=== PATIENT | female | born 1940 | race Caucasian/White ===

== ENCOUNTER 2016-09-08 12:28 | Inpatient (IN) ==
--- NOTE | 2016-09-08 12:54 | EKG Report ---
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
--- NOTE | 2016-09-08 13:10 | Emergency Department Note ---
Arrival - Arrival Chief Complaint: Dizziness Stated Complaint: chest pain,falling ED Nursing Triage Note: C/o dizziness-onset upon waking this morning. Patient reports falling x's 2 this morning. C/o pain in lower back and right shoulder. Mode of Arrival: Wheelchair Limitations: No Limitations Source: Patient Time Seen by Provider: 09/08/16 13:04 - History of Present Illness HPI Narrative: This 75-year-old white female presents with a history of lying on her sofa and feeling dizzy about 2 hours ago. When the dizziness did not howie, the patient got up and walked around and then sat in an arm chair where she promptly became extremely dizzy and fell out of the chair hitting her right shoulder and the right side of her head on the wooden floor. She denies loss of consciousness, nausea, vomiting, visual changes, slurred speech, chest pain, shortness of breath, or focal deficits associated with this incident. Currently she states she feels back to normal except for a sore right shoulder. Of note the patient does have a history of chronic alcoholism without chronic liver disease but has not had a drink an almost 10 years by her admonition. Family members tend to agree with this, but they also state that although she is alert and oriented 3 currently, several times this past year she has gotten lost trying to drive home. She is in no acute distress. Onset (ago): hour(s) Consistency: now resolved Date of Last Menstrual Period: hysterectomy Allergies/Adverse Reactions: Allergies Allergy/AdvReac Type Severity Reaction Status Date / Time Sulfa (Sulfonamide Allergy RASH Verified 09/08/16 12:41 Antibiotics) Home Medications: Home Medications Medication Instructions Recorded Confirmed Type Acetaminophen Tab [Tylenol Tab] 500 mg PO BID 09/08/16 09/08/16 History Aspirin 325 mg PO DAILY 09/08/16 09/08/16 History Atorvastatin [Lipitor] 20 mg PO DAILY 09/08/16 09/08/16 History Carvedilol [Coreg] 25 mg PO DAILY 09/08/16 09/08/16 History Fosinopril [Monopril] 10 mg PO DAILY 09/08/16 09/08/16 History Lansoprazole [Prevacid] 30 mg PO DAILY 09/08/16 09/08/16 History Review of System - Review of System 12 point system: reviewed and no additional remarkable complaints except as stated - Review of System Constitutional: Present: as per HPI Respiratory: Present: as per HPI Cardiovascular: Present: as per HPI Gastrointestinal: Present: as per HPI Musculoskeletal: Present: as per HPI Neurological: Present: as per HPI Psychiatric: Present: as per HPI Medical,Surgical,& Family Hx - Medical History Cardio: History of: CAD, Hypertension, [place] Endocrine: History of: Dyslipidemia - Surgical History Reproductive Surgeries: Surgical HX of;: Hysterectomy - Social History Smoking Status: Current every day smoker Frequency of Alcohol Use: None Type of Drug Use: None Exam Physical Examination: GENERAL: Well developed, well nourished elderly white female in no acute distress. HEENT: Normocephalic. No trauma. Moist mucous membranes. EOMI. PERRLA. No nystagmus ENT NML NECK: Supple. No adenopathy. CARDIAC: Regular. No murmurs. Heart rate 70 CHEST: Clear to auscultation. No respiratory distress. O2 sat 97% ABDOMEN: Soft. Nontender. Positive fluid wave. Hypoactive bowel sounds. EXTREMITIES: No trauma. Pain on range of motion of the right shoulder but no ecchymosis or swelling noted. No pedal edema. SKIN: No diaphoresis. No rash. NEURO: Alert. Oriented 3. Motor, sensory, vibratory intact. No focal deficits. Vital Signs: Vital Signs Temperature 97.9 F 09/08/16 12:55 Pulse Rate 71 09/08/16 12:55 Respiratory Rate 20 09/08/16 12:55 Blood Pressure 168/98 09/08/16 12:55 O2 Sat by Pulse Oximetry 97 09/08/16 12:33 Course - Reevaluation(s) Reevaluation #1: Advised patient that because of urinary tract and cardiac issues she will need hospitalization for observation at least for serial enzymes. - Consultations Consultation #1: Discussed with hospitalist service who will admit for further evaluation and treatment. Results - Labs CBC & BMP: 09/08/16 13:06 09/08/16 13:06 Labs: I have reviewed the results and noted the dirty urine as well as the bump in troponins and greatly elevated BMP. - Impressions EKG: Sinus rhythm with left bundle branch block pattern diffuse ST changes consistent with block. No specific acute injury pattern discernible due to block. - Diagnostic Findings Procedure: Chest x-ray: image reviewed by me, report reviewed by me ( Cardiomegaly otherwise negative chest.), CT: image reviewed by me, report reviewed by me (Head: Cerebral atrophy with microvascular ischemia), X-ray: image reviewed by me, report reviewed by me (Right shoulder: No acute injury, mild DJD noted) Disposition Clinical Impression: Abnormal cardiac enzymes, Congestive heart failure, Cystitis Case discussed with: patient Disposition: Still a Patient Time of Disposition: 15:18
--- NOTE | 2016-09-08 13:32 | CT Report ---
Referring physician: Francisco Cortez Exam: CT brain without contrast Date: September 08, 2016 Comparison: None Reason: Dizziness The patient is an Emergency Department patient on September 08, 2016. Technique: Axial images of the head were obtained without the use of contrast. Total DLP was 1103.6 mGy*cm. Findings: There is mild to moderate generalized cerebral atrophy/volume loss and probable chronic microvascular ischemic change. A small remote infarction is suspected within the left cerebellum. The lateral ventricles are mildly prominent, likely secondary to central atrophy/volume loss. No midline shift is present. There is no evidence of intracranial hemorrhage, abnormal mass effect or an acute infarction. No acute osseous process is seen. There is prominent calcified plaque at the intracranial internal carotid arteries. The mastoid air cells and visualized paranasal sinuses are clear. Impression: 1. No acute intracranial process is identified. 2. Lpdd-[id number]-[id number] generalized cerebral atrophy/volume loss and probable chronic microvascular ischemic change. A small remote infarction is also suspected within the left cerebellum. The CT exam was performed using one or more of the following dose reduction techniques: Automated exposure control and adjustment of the mA and/or kV according to patient size. PROCEDURE INTERPRETED AT [facility] DEPARTMENT OF RADIOLOGY Final Report Signed by: Dr. Fransisco Nunez
[2016-09-08 13:47] LABS: Basophils # 0.1 10*3/uL (0.0-0.2); Basophils % 0.6 % (0.0-0.8); Eosinophils # 0.2 10*3/uL (0.0-0.87); Eosinophils % 1.9 % (0.00-10.9); Hematocrit 39.6 VOL% (35.7-47.0); Immature Granulocytes % 0.5 %; Immature Granulocytes Absolute 0.04 #; Lymphocytes # 1.9 10*3/uL (1.4-4.0); Lymphocytes % 22.6 % (21.3-54.2); Mean Corpuscular HGB Conc 32.8 GM/DL (32-36); Mean Corpuscular Hemoglobin 28 PG (27-34); Mean Corpuscular Volume 85.3 FL (87-102); Mean Platelet Volume 13.2 FL (9.6-12.0); Monocytes # 0.6 10*3/uL (0.11-0.8); Neutrophils # 5.7 10*3/uL (1.4-7.4); Neutrophils % 67.4 % (38.7-73.9); Platelet Count 192 T/CUMM (130-400); Red Blood Count 4.64 MC/CUMM (3.8-5.5); Red Cell Distribution Width 14.4 % (9.3-17.3); White Blood Count 8.5 T/CUMM (4-12)
[2016-09-08 13:55] LABS: INR 1.1; PT Patient Result 11.4 SECS
--- NOTE | 2016-09-08 13:59 | XRay Report ---
Referring Physician: Francisco Cortez Exam: XR chest 1V portable Date: September 08, 2016 at 1:24 PM Reason: Shortness of breath Comparison: Chest PA lateral July 16, 2009 Findings: The cardiac silhouette is again enlarged, and there is calcified plaque at the aortic arch. No focal consolidation, pneumothorax or pleural effusion is identified. No acute osseous process is seen. Impression: 1. Cardiomegaly. 2. No acute pulmonary process is identified. PROCEDURE INTERPRETED AT [facility] DEPARTMENT OF RADIOLOGY Final Report Signed by: Dr. Fransisco Nunez
--- NOTE | 2016-09-08 14:01 | XRay Report ---
Referring Physician: Francisco Cortez Exam: XR shoulder 2V RT Date: September 08, 2016 at 1:28 PM Reason: Status post fall, right shoulder pain, initial encounter Comparison: None Findings: There is mild degenerative change at the right acromioclavicular joint and lateral acromial downsloping. There is also minimal marginal spurring at the right humeral head. No acute fracture, dislocation or osseous destructive process is identified. Scattered arterial calcification is noted. Impression: Mild degenerative change at the right shoulder. No acute osseous process is identified. PROCEDURE INTERPRETED AT [facility] DEPARTMENT OF RADIOLOGY Final Report Signed by: Dr. Fransisco Nunez
[2016-09-08 14:10] LABS: Apearance,Urine CLEAR (Clear); Bacteria,Urine Occasional /HPF (Few); Bilirubin,Urine Negative (Negative); Blood, Urine Negative (Negative); Glucose,Urine (UA) Negative (Negative); Ketones,Urine Negative (Negative); Nitrite,Urine Negative (Negative); Protein,Urine Negative; RBC,Urine <1 /HPF (0-4); Squamous Epithelial Cell,Urine Occasional /HPF (0-10); Urine Color Yellow (Yellow); Urine Specific Gravity 1.005 (1.001-1.035); Urine Urobilinogen < 2.0 EU/DL (0.2-1.0); WBC,Urine 25 /HPF (0-6)
[2016-09-08 14:15] LABS: Alanine Aminotransferase 14 U/L (13-56); Albumin 3.8 G/DL (3.4-5.0); Alkaline Phosphatase 104 U/L (45-117); Aspartate Amino Transferase 21 U/L (0-37); Blood Urea Nitrogen 22 MG/DL (7-18); Calcium 9.8 MG/DL (8.5-10.1); Free T4 (Free Thyroxine) 1.41 NG/DL (0.76-1.46); Glucose 100 MG/DL (74-106); Osmolality,Calculated 277.7 MOS/KG (273-304); Potassium 4.8 MMOL/L (3.5-5.1); Sodium 138 MMOL/L (136-145); Total Protein 7.1 G/DL (6.4-8.3)
[2016-09-08 14:16] LABS: Troponin I Only 0.262 NG/ML (0.00-0.045)
[2016-09-08 14:29] LABS: Barbiturates Screen,Urine Negative (Negative); Benzodiazepines Screen,Urine Negative (Negative); Cannabinoid Screen,Urine Negative (Negative); Opiate Screen,Urine Negative (Negative); Phencyclidine Screen,Urine Negative (Negative)
[2016-09-08 14:35] LABS: Ammonia 18 UMOL/L (11-32)
[2016-09-08] MEDS ORDERED: ONDANSETRON 4 MG/2 ML VIAL IV PRN (16:34)
[2016-09-08] MEDS ORDERED: DOCUSATE SODIUM 100 MG CAPSULE PO PRN (16:34)
[2016-09-08] MEDS ORDERED: NICOTINE 21 MG/24 HR PATCH TRANSDERM PRN (16:34)
--- NOTE | 2016-09-08 16:42 | Hospitalist History & Physical ---
Assessment and Plan (1) Urinary tract infection Status: Acute Current Visit: Yes (2) Syncope Status: Acute Current Visit: Yes (3) Congestive heart failure Status: Acute Current Visit: Yes History of Present Illness Chief complaint: dizzy spell History of present illness: Ms. Baez is a 75 year old white female patient that presented to the ED today after a fall. The patient states that she was at home watching her dog play. She got up to move near the dog and while returning back to her seat, she lost balance and fell. She stated she hit her right shoulder and maybe head. She stated she felt dizzy while this was happening. She denied any prior history of this type of incident. She also denied loss of consciousness, vision changes, tinnuitis, chest pain, nausea or vomiting. Pt. has a history of chf, [place], hypertension, COPD, ulcers, and arthritis. Pt also admits to past alcohol abuse. Pt's family is at bedside and adds that over the last 2 months pt has experienced an increase in disorientation and confusion. Pt. agrees. Pt. had elevated BNP and elevated troponin. Pt. will be admitted to the hospitalist program. Home Medications Medication Instructions Recorded Confirmed Type Acetaminophen Tab [Tylenol Tab] 500 mg PO BID 09/08/16 09/08/16 History Aspirin 325 mg PO DAILY 09/08/16 09/08/16 History Atorvastatin [Lipitor] 20 mg PO DAILY 09/08/16 09/08/16 History Carvedilol [Coreg] 25 mg PO DAILY 09/08/16 09/08/16 History Fosinopril [Monopril] 10 mg PO DAILY 09/08/16 09/08/16 History Lansoprazole [Prevacid] 30 mg PO DAILY 09/08/16 09/08/16 History Allergies Allergy/AdvReac Type Severity Reaction Status Date / Time Sulfa (Sulfonamide Allergy RASH Verified 09/08/16 12:41 Antibiotics) Medical,Surgical,& Family Hx - Medical History Cardio: History of: CAD, Hypertension, [place] Endocrine: History of: Dyslipidemia - Surgical History Reproductive Surgeries: Surgical HX of;: Hysterectomy - Social History Smoking Status: Current every day smoker Have you smoked in the last 12 months: Yes Frequency of Alcohol Use: None Type of Drug Use: None Lives With:: Alone Functional capacity: independent ambulation - Constitutional Constitutional: Absent: fever(s), headache(s) - Cardiovascular Cardiovascular: Absent: chest pain at rest, edema - Respiratory Respiratory: Present: cough (nonproductive), dyspnea - Gastrointestinal Gastrointestinal: Absent: abdominal pain, nausea, vomiting - Genitourinary Genitourinary: Absent: difficulty urinating - Neurological Neurological: Present: confusion. Absent: headache(s), numbness Exam - Constitutional General appearance: normal weight, no acute distress - Head Head exam: Present: normal inspection, normocephalic - Eye Eye exam: Present: EOMI. Absent: scleral icterus Pupils: Present: KATHY - Neck Neck exam: Present: normal inspection - Respiratory Respiratory exam: Present: other (coarse) - Cardiovascular Cardiovascular exam: Present: regular rate and rhythm - GI/Abdominal GI/Abdominal exam: Present: normal bowel sounds, soft. Absent: tenderness - Extremities Exam Extremities exam: Present: normal inspection, normal capillary refill, full ROM - Back Exam Back exam: Present: normal inspection - Neurological Exam Neurological exam: Present: alert, oriented X3, normal gait - Psychiatric Psychiatric exam: Present: normal affect, normal mood - Skin Skin exam: Present: normal color, warm, dry Results - Labs CBC & BMP: 09/08/16 13:06 09/08/16 13:06 Lab Results: I have reviewed the past 24 hour labs
[2016-09-08] MEDS: PIPERACILLIN/TAZOBACTAM 3,375 MG in SODIUM CHLORIDE 0.9% 100 ML IV SCH (17:14)
[2016-09-08] MEDS: FUROSEMIDE 40 MG/4 ML VIAL IV SCH (17:15)
[2016-09-08] MEDS: ACETAMINOPHEN 325 MG TABLET PO PRN (21:30)
[2016-09-08 21:44] LABS: Troponin I Only 0.258 NG/ML (0.00-0.045)
[2016-09-09] MEDS ORDERED: NITROGLYCERIN SL 0.4 MG TABLET SL PRN (00:16)
[2016-09-09] MEDS ORDERED: NITROGLYCERIN SL 0.4 MG TABLET SL ONE (00:17)
[2016-09-09] MEDS ORDERED: ASPIRIN CHEW 81 MG TABLET PO ONE (00:24)
[2016-09-09] MEDS ORDERED: NITROGLYCERIN 2% OINT 1 INCH/GM PACK TOP ONE (00:25)
--- NOTE | 2016-09-09 00:32 | Event Note ---
Called by the staff nurse and patient is refusing the pain medications and Lasix. She has been complaining of chest soreness. I went to see the patient she says she has a soreness in chest when I asked in detail seems like more of a dull pain which is nonreproducible no associated with the movement or breathing. It is nonradiating. She has history of " mild OR in the past" she also has history of alcohol abuse in the past but has quit in 1999. She is scared of taking Paradox and that the reason she did not want to take that for pain. She denies any shortness of breath or orthopnea. On exam she has a regular rate and rhythm no normal heart sound lungs clear to auscultation without any rhonchi or crepitus. I gave her dose of sublingual nitroglycerin and her pain eased off. Noted she had two elevated troponin readings and grossly unchanged. I will ask for aspirin and Nitropaste. Give sublingual nitroglycerin as needed. I will start her on metoprolol 12.5 mg twice daily. Consult cardiology in a.m. unless pain worsens. Continue on telemetry monitoring. I will ask for repeat troponin level in the morning
--- NOTE | 2016-09-09 00:46 | EKG Report ---
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
[2016-09-09] MEDS: METOPROLOL TARTRATE 25 MG TABLET PO SCH ×3 (01:04→22:48)
[2016-09-09] MEDS: PIPERACILLIN/TAZOBACTAM 3,375 MG in SODIUM CHLORIDE 0.9% 100 ML IV SCH ×3 (01:27→16:40)
[2016-09-09 04:55] LABS: Basophils # 0.1 10*3/uL (0.0-0.2); Basophils % 0.7 % (0.0-0.8); Eosinophils # 0.2 10*3/uL (0.0-0.87); Eosinophils % 2.2 % (0.00-10.9); Hematocrit 35.6 VOL% (35.7-47.0); Hemoglobin 11.8 GM/DL (12.0-16.0); Immature Granulocytes % 0.4 %; Immature Granulocytes Absolute 0.04 #; Lymphocytes # 2.3 10*3/uL (1.4-4.0); Mean Corpuscular HGB Conc 33.1 GM/DL (32-36); Mean Corpuscular Hemoglobin 28 PG (27-34); Mean Corpuscular Volume 84.6 FL (87-102); Mean Platelet Volume 11.7 FL (9.6-12.0); Monocytes # 0.9 10*3/uL (0.11-0.8); Monocytes % 9.3 % (1.7-12.7); Neutrophils % 63.4 % (38.7-73.9); Platelet Count 222 T/CUMM (130-400); Red Blood Count 4.21 MC/CUMM (3.8-5.5); Red Cell Distribution Width 14.2 % (9.3-17.3); White Blood Count 9.5 T/CUMM (4-12)
[2016-09-09 05:36] LABS: Troponin I Only 0.281 NG/ML (0.00-0.045)
[2016-09-09 05:38] LABS: Calcium 9.1 MG/DL (8.5-10.1); Magnesium 2.1 MG/DL (1.8-2.4); Osmolality,Calculated 281.5 MOS/KG (273-304); Potassium 4.2 MMOL/L (3.5-5.1); Risk Ratio 4.13; Thyroid Stimulating Hormone 1.51 uIU/ml (0.358-3.74); VLDL CHOLESTEROL 18.2 MG/DL
[2016-09-09] MEDS: ATORVASTATIN 20 MG TABLET PO SCH (09:29)
[2016-09-09] MEDS: ASPIRIN CHEW 81 MG TABLET PO SCH (09:29)
[2016-09-09] MEDS: PANTOPRAZOLE 40 MG TABLET PO SCH (09:29)
[2016-09-09] MEDS: FUROSEMIDE 40 MG/4 ML VIAL IV SCH ×2 (09:30→16:40)
--- NOTE | 2016-09-09 12:06 | ECHO Report ---
Xenia Baez Exam Date: 09/09/2016 09:31 Referring Physician: Technologist: Sheri Jackson Age: 75 Ht (in): 66 Wt (lb): 154 Gender: F Exam Location: [facility] Echo Indications: UTI, Syncope, CHF, SOB, Chest pain BP: 157 / 85 HR: 63 Rhythm: Sinus Technical Quality: Technically difficult study IMPRESSIONS Severely decreased left ventricular systolic function with left ventricular ejection fraction estimated at 20-25%. Moderate concentric left ventricular hypertrophy. Mildly thickened mitral valve leaflets with mild to moderate mitral valve regurgitation. Mild aortic valve sclerosis with mild aortic valve regurgitation. Mild tricuspid regurgitation. MEASUREMENTS (Male / Female) Normal Values 2D ECHO LV Diastolic Diameter PLAX 5.2 cm 4.2 - 5.9 / 3.9 - 5.3 cm LV Systolic Diameter PLAX 4.6 cm LV Fractional Shortening PLAX 10.8 % IVS Diastolic Thickness 2.3 cm 0.6 - 1.0 / 0.6 - 0.9 cm LVPW Diastolic Thickness 1.5 cm 0.6 - 1.0 / 0.6 - 0.9 cm Aortic Root Diameter 3.0 cm LA Systolic Diameter LX 4.8 cm 3.0 - 4.0 / 2.7 - 3.8 cm FINDINGS Left Ventricle Normal left ventricular cavity size. Moderate concentric left ventricular hypertrophy. Severely decreased left ventricular systolic function, left ventricular ejection fraction is estimated at 20-25%. Right Ventricle Normal right ventricular size. Right Atrium The right atrium is mildly enlarged. Left Atrium Moderately increased left atrial size. Mitral Valve Mildly thickened mitral valve leaflets with mild to moderate mitral valve regurgitation. Aortic Valve Mild aortic valve sclerosis with mild aortic valve regurgitation. Tricuspid Valve Morphologically normal tricuspid valve. Mild tricuspid regurgitation. Pulmonic Valve Pulmonic valve not well visualized. Pericardium No pericardial effusion. Aorta Normal size aortic root and proximal ascending aorta. Curt Perkins (Electronically Signed) Final Date: 09 September 2016 12:05
--- NOTE | 2016-09-09 12:25 | Ultrasound Report ---
Exam: Carotid ultrasound Date: 09/09/2016 Comparison: 10/24/2006 Technique: Duplex scans of the carotid and vertebral arteries using B-mode/Mederos scale imaging and Doppler spectral analysis and color flow. Reason: Syncope Findings: The right ICA measures 6.2 mm in diameter and the left ICA measures 6.0 mm in diameter. Color-flow documented in the visualized arteries. The peak systolic velocities are as follows: Right CCA: 56.0 cm/s Right ICA: 104.2 cm/s Right ECA: 164.8 cm/s Left CCA: 85.9 cm/s Left ICA: 116.2 cm/s Left ECA: 93.5 cm/s The peak systolic ICA/CCA velocity ratios are as follows: 1.5 on the right and 1.4 on the left. Antegrade flow is present in both vertebral arteries. Impression:[Less than 50% stenosis in both internal carotid arteries with diffuse heterogeneous plaque formation. Tortuosity of the arteries. Antegrade flow in both vertebral arteries.] The Society of Radiologists in Ultrasound consensus conference criteria was used. The Ultrasound images were captured and stored. PROCEDURE INTERPRETED AT [facility] DEPARTMENT OF RADIOLOGY Final Report Signed by: Dr. Jessica Mederos
--- NOTE | 2016-09-09 12:33 | Cardiology Consult Note ---
Assessment and Plan (1) Urinary tract infection Status: Acute Assessment and plan: Treatment has been initiated. I think that her falls were related to the UTI Current Visit: Yes (2) Non-ischemic cardiomyopathy Status: Acute Assessment and plan: She has a long-standing severe nonischemic cardiomyopathy dating back at least 10 years. Her left ventricular systolic function has really not changed significantly. However, The patient probably needs reassessment of her coronary anatomy. She is a smoker and has not had coronary angiogram in many years. I tried talking about that with her today but I'm not sure she is going to consent. We will discuss this further tomorrow. Current Visit: Yes (3) Left bundle branch block Status: Acute Assessment and plan: I think the patient would benefit from a biventricular internal cardiac defibrillator. She didn't seem excited about this discussion today. I'll try discussing it with her again tomorrow. She may still be a bit confused related to her urinary tract infection. Current Visit: Yes (4) Abnormal cardiac enzyme level Status: Acute Assessment and plan: The patient has a trivial rise in her cardiac enzymes which I suspect is related to her volume overload/heart failure. However, I do think it would be appropriate to reevaluate her coronary anatomy since it has been many years since this has been done, and she has risk factors. I'll discuss this more with her tomorrow. Current Visit: Yes (5) Acute on chronic systolic (congestive) heart failure Status: Acute Assessment and plan: I'm going to review and optimize her medical management. Current Visit: Yes (6) Syncope Status: Acute Assessment and plan: I am not sure if she had true syncope or just fell down from being weak from her urinary tract infection. But, certainly with her cardiomyopathy we have to be concerned about a cardiac source of her. We have her on a community living instructor. I would like to perform a cardiac catheterization the patient is willing. She also would probably benefit from a biventricular defibrillator at some point. However, I would want her to be completely cleared of the infection before implanting a device. Current Visit: Yes History of Present Illness - Consult Narrative History of present illness: Ms. Baez is a 75 year old female who has a long-standing history of a severe nonischemic cardiomyopathy. The patient was previously followed by Dr. Santa who is recently retired. She underwent cardiac catheterization many years ago with Dr. Rivas but this did not show any significant obstructive coronary disease. Essentially she has been managed conservatively and has done very well. The patient came in to the hospital after having 2 episodes of feeling weak and falling. She did not have any significant injury with the falls, but her workup in the hospital has revealed urinary tract infection. The patient had a significant elevation in her BNP and a slight abnormality in her cardiac troponin and cardiology was consulted to assist with workup and management. The patient denies any chest pain to me. She denies any palpitations or heart racing. She denies any orthopnea, PND, or peripheral edema. She seems remarkably asymptomatic from her severe cardiomyopathy. She denies any fever, chills, or nausea or vomiting. Her EKG shows normal sinus rhythm with a left bundle branch block which is chronic. Her other testing was generally benign except for the urinalysis and cardiac labs as outlined above. The patient reports being a heavy smoker, unfortunately. Current Medications Acetaminophen (Tylenol Tab) 650 mg PO Q4H PRN PRN Reason: Fever, Headache, Mild Pain Last Admin: 09/08/16 21:30 Dose: 650 mg Hydrocodone Bitart/Acetaminophen (Festus 5-325) 1 tablet PO Q4H PRN PRN Reason: Pain Mild (1-3) Last Admin: 09/09/16 10:40 Dose: 1 tablet Aspirin () 324 mg PO DAILY [facility] Last Admin: 09/09/16 09:29 Dose: 324 mg Atorvastatin Calcium (Lipitor) 20 mg PO DAILY [facility] Last Admin: 09/09/16 09:29 Dose: 20 mg Docusate Sodium (Colace Cap) 100 mg PO BID PRN PRN Reason: Constipation Furosemide (Lasix Inj) 40 mg IV BID [facility] Last Admin: 09/09/16 09:30 Dose: 40 mg Piperacillin Sod/Tazobactam (Sod 3,375 mg/ Sodium Chloride) 100 mls @ 25 mls/ hr IV Q8H [facility] Last Admin: 09/09/16 09:29 Dose: 25 mls/hr Metoprolol Tartrate (Lopressor Tab) 12.5 mg PO BID [facility] Last Admin: 09/09/16 09:30 Dose: 12.5 mg Nicotine (Nicoderm Cq 21) 1 patch TRANSDERM DAILY PRN PRN Reason: Nicotine Cravings Last Admin: 04/15/17 09:29 Dose: 1 patch Nitroglycerin (Nitrostat) 0.4 mg SL Q5M PRN PRN Reason: Chest Pain Last Admin: 09/09/16 00:19 Dose: 0.4 mg Ondansetron HCl (Zofran Inj) 4 mg IV Q4H PRN PRN Reason: Nausea Pantoprazole Sodium (Protonix Tab) 40 mg PO DAILY [facility] Last Admin: 09/09/16 09:29 Dose: 40 mg CC: Hazel Duncan MD - Home Medications and Allergies Home Medications: Home Medications Medication Instructions Recorded Confirmed Type Acetaminophen Tab [Tylenol Tab] 500 mg PO BID 09/08/16 09/08/16 History Aspirin 325 mg PO DAILY 09/08/16 09/08/16 History Atorvastatin [Lipitor] 20 mg PO DAILY 09/08/16 09/08/16 History Carvedilol [Coreg] 25 mg PO DAILY 09/08/16 09/08/16 History Fosinopril [Monopril] 10 mg PO DAILY 09/08/16 09/08/16 History Lansoprazole [Prevacid] 30 mg PO DAILY 09/08/16 09/08/16 History Allergies/Adverse Reactions: Allergies Allergy/AdvReac Type Severity Reaction Status Date / Time Sulfa (Sulfonamide Allergy RASH Verified 09/08/16 12:41 Antibiotics) 12 point system: reviewed and no additional remarkable complaints except as stated Medical,Surgical,& Family Hx - Medical History Cardio: History of: CAD, Hypertension, ID Psychological: History of: Anxiety Disorders Endocrine: History of: Dyslipidemia - Surgical History HEENT Surgeries: Surgical HX of: Tonsilectomy & Adenoidectomy Reproductive Surgeries: Surgical HX of;: Hysterectomy - Family History Family History: Reports;: Family Heart Disease, Family Hypertension - Social History Smoking Status: Current every day smoker Frequency of Alcohol Use: None Type of Drug Use: None Physical Examination Vital Signs Temp Pulse Resp BP Pulse Ox 97.9 F 71 20 168/98 97 09/08/16 12:33 09/08/16 12:33 09/08/16 12:33 09/08/16 12:33 09/08/16 12:33 Other: General: Frail, elderly, somewhat chronically ill-appearing HEENT: Normocephalic, atraumatic Neck: Supple Neck, Midline Trachea Cardiac: Regular Rhythm, 2/6 systolic Murmur, no gallop, no rub Lungs: Clear to Ascultation, No Wheeze, Rales, Rhonchi Neuro: Cranial Nerve 2-12 Intact, diffuse generalized weakness Abdomen: Soft, Active Bowel Sounds, No Masses, No Pulsations/Bruits, somewhat protuberant, ? mild ascites Skin: Normal color, no rash Extremities: No Clubbing, No Cyanosis, No Edema, Normal Upper Extr. Pulses Musculoskeletal: No acute abnormality noted, diffuse muscular wasting Psychiatric: The patient is alert and oriented. The patient has a flat affect but does not appear to be anxious or depressed. Result/EKG - Labs CBC & BMP: 09/09/16 04:35 09/09/16 04:35 Lab Results: I have reviewed the past 24 hour labs Labs: Laboratory Results - last 24 hr 09/08/16 09/09/16 09/09/16 20:44 04:35 04:35 WBC 9.5 RBC 4.21 Hgb 11.8 L Hct 35.6 L MCV 84.6 L MCH 28 MCHC 33.1 RDW 14.2 Plt Count 222 MPV 11.7 Neut % (Auto) 63.4 Lymph % (Auto) 24.0 [place] % (Auto) 9.3 Eos % (Auto) 2.2 Baso % (Auto) 0.7 Neut # (Auto) 6.0 Lymph # (Auto) 2.3 [place] # (Auto) 0.9 H Eos # (Auto) 0.2 Baso # (Auto) 0.1 Immature Gran % 0.4 Nucleated RBC % 0.0 Immature Gran # 0.04 Nucleated RBCs # 0.00 Sodium Potassium Chloride Carbon Dioxide Anion Gap BUN Creatinine GFR Calculation BUN/Creatinine Ratio Glucose Calculated Osmolality Calcium Magnesium Total Creatine Kinase 74 D 96 D CK-MB (CK-2) 2.8 3.1 Troponin I 0.258 H 0.281 H B-Natriuretic Peptide Triglycerides Cholesterol LDL Cholesterol VLDL Cholesterol HDL Cholesterol Heart Disease Risk Ratio TSH 3rd Generation 09/09/16 09/09/16 04:35 04:35 WBC RBC Hgb Hct MCV MCH MCHC RDW Plt Count MPV Neut % (Auto) Lymph % (Auto) [place] % (Auto) Eos % (Auto) Baso % (Auto) Neut # (Auto) Lymph # (Auto) [place] # (Auto) Eos # (Auto) Baso # (Auto) Immature Gran % Nucleated RBC % Immature Gran # Nucleated RBCs # Sodium 139 Potassium 4.2 Chloride 106 Carbon Dioxide 25 Anion Gap 12.2 BUN 30 H Creatinine 1.40 H GFR Calculation 38 BUN/Creatinine Ratio 21.00 H Glucose 89 Calculated Osmolality 281.5 Calcium 9.1 Magnesium 2.1 Total Creatine Kinase CK-MB (CK-2) Troponin I B-Natriuretic Peptide 4456 H Triglycerides 91 Cholesterol 186 LDL Cholesterol 128.0 VLDL Cholesterol 18.2 HDL Cholesterol 45 Heart Disease Risk Ratio 4.13 TSH 3rd Generation 1.510 - EKG EKG results: interpreted by me
--- NOTE | 2016-09-09 14:08 | Hospitalist Progress Note ---
Assessment and Plan - Time spent with patient Time spent with patient: Greater than 30 minutes (1) Syncope Status: Acute Assessment and plan: Continue workup. Current Visit: Yes (2) Abnormal cardiac enzyme level Status: Acute Assessment and plan: Defer to cardiology. Current Visit: Yes (3) Non-ischemic cardiomyopathy Status: Acute Assessment and plan: Defer to cardiology. Current Visit: Yes (4) Urinary tract infection Status: Acute Assessment and plan: Continue antibiotics. Current Visit: Yes (5) Acute on chronic systolic (congestive) heart failure Status: Acute Assessment and plan: Continue diuresis. Current Visit: Yes Hospitalist: Subjective Interval history: No complaints this morning. No overnight events. Exam - Constitutional Vitals: Period Temp Pulse Resp BP Sys/Reyes Pulse Ox Last 24 Hr 96.8 F-98.2 F 57-91 16-20 147-179/76-101 95-98 General appearance: no acute distress - Head Head exam: Present: normocephalic, atraumatic - Eye Eye exam: Present: EOMI Pupils: Present: KATHY - ENT ENT exam: Present: normal exam - Neck Neck exam: Present: normal inspection - Respiratory Respiratory exam: Present: clear to auscultation bilaterally. Absent: rhonchi, wheezes - Cardiovascular Cardiovascular exam: Present: regular rate and rhythm. Absent: gallop, rubs, systolic murmur - GI/Abdominal GI/Abdominal exam: Present: normal bowel sounds, soft. Absent: distended, firm , guarding, tenderness, rebound - Extremities Exam Extremities exam: Present: normal inspection. Absent: calf tenderness, edema Results - Labs CBC & BMP: 09/09/16 04:35 09/09/16 04:35 Lab Results: I have reviewed the past 24 hour labs
--- NOTE | 2016-09-09 14:27 | Event Note ---
This is an addendum to the HP by Florencio Watson NP. I attempted to add an addendum to the EMR however due to an error with the EMR was unable to do so. I have seen and examined the patient agree with assessment and plan we will continue evaluation of syncope and diuresis for acute congestive heart failure.
[2016-09-10] MEDS: ACETAMINOPHEN 325 MG TABLET PO PRN (00:29)
[2016-09-10] MEDS: PIPERACILLIN/TAZOBACTAM 3,375 MG in SODIUM CHLORIDE 0.9% 100 ML IV SCH ×3 (01:26→18:09)
[2016-09-10 05:05] LABS: Basophils # 0.1 10*3/uL (0.0-0.2); Basophils % 0.6 % (0.0-0.8); Eosinophils # 0.2 10*3/uL (0.0-0.87); Hematocrit 40.7 VOL% (35.7-47.0); Hemoglobin 13.1 GM/DL (12.0-16.0); Immature Granulocytes % 0.5 %; Immature Granulocytes Absolute 0.05 #; Lymphocytes # 2.3 10*3/uL (1.4-4.0); Lymphocytes % 22.1 % (21.3-54.2); Mean Corpuscular HGB Conc 32.2 GM/DL (32-36); Mean Corpuscular Hemoglobin 28 PG (27-34); Mean Corpuscular Volume 86.2 FL (87-102); Mean Platelet Volume 10.9 FL (9.6-12.0); Monocytes % 9.5 % (1.7-12.7); Neutrophils # 6.7 10*3/uL (1.4-7.4); Neutrophils % 65.3 % (38.7-73.9); Platelet Count 273 T/CUMM (130-400); Red Blood Count 4.72 MC/CUMM (3.8-5.5); Red Cell Distribution Width 14.2 % (9.3-17.3); White Blood Count 10.3 T/CUMM (4-12)
[2016-09-10 05:36] LABS: Calcium 9.6 MG/DL (8.5-10.1); Osmolality,Calculated 289.3 MOS/KG (273-304); Potassium 4.1 MMOL/L (3.5-5.1)
[2016-09-10] MEDS: ASPIRIN CHEW 81 MG TABLET PO SCH (09:11)
[2016-09-10] MEDS: PANTOPRAZOLE 40 MG TABLET PO SCH (09:12)
[2016-09-10] MEDS: METOPROLOL TARTRATE 25 MG TABLET PO SCH ×2 (09:12→21:13)
[2016-09-10] MEDS: FUROSEMIDE 40 MG/4 ML VIAL IV SCH ×2 (09:12→18:09)
[2016-09-10] MEDS: ATORVASTATIN 20 MG TABLET PO SCH (09:12)
--- NOTE | 2016-09-10 11:08 | Cardiology Progress Note ---
Assessment and Plan (1) Urinary tract infection Status: Acute Assessment and plan: Treatment has been initiated. I think that her falls were related to the UTI Current Visit: Yes (2) Non-ischemic cardiomyopathy Status: Acute Assessment and plan: She has a long-standing severe nonischemic cardiomyopathy dating back at least 10 years. Her left ventricular systolic function has really not changed significantly. Given the fact that she is a lifelong smoker and had mildly positive cardiac enzymes, the I think she needs reassessment of her coronary anatomy. I discussed this with the patient and her son (over the phone) and we are going to plan to do this procedure tomorrow. Current Visit: Yes (3) Left bundle branch block Status: Acute Assessment and plan: If the patient does not have revascularizable coronary artery disease, she would likely benefit from biventricular internal cardiac defibrillator. I would want her to be completely cleared of any infection before doing an implant. We will address this after we have seen what her coronary anatomy looks like. I would probably let her go home and make sure that she is cleared of any infection and do the defibrillator implant at a later date. Current Visit: Yes (4) Abnormal cardiac enzyme level Status: Acute Assessment and plan: Given the patient's mild increase in cardiac enzymes, cardiac risk factors, and severe cardiomyopathy, I'm planning cardiac catheterization as noted above. Current Visit: Yes (5) Acute on chronic systolic (congestive) heart failure Status: Acute Current Visit: Yes (6) Syncope Status: Acute Assessment and plan: I am not sure if she had true syncope or just fell down from being weak from her urinary tract infection. But, certainly with her cardiomyopathy we have to be concerned about a cardiac source of her. We have her on a press clipper. I'm going to the cardiac catheterization tomorrow. She also would probably benefit from a biventricular defibrillator at some point. However, I would want her to be completely cleared of the infection before implanting a device. Current Visit: Yes Cardiology - PN: Subj Interval history: The patient is feeling a bit better today. She denies any chest pains overnight. She has not had any palpitations or syncope. Today I discussed cardiac catheterization with her. With her cardiac risk factors and mild increase in cardiac enzymes, as well as her severe cardiomyopathy, I think she would benefit from reevaluation of her coronary anatomy. I discussed this with her son on the phone today as well. The patient and her son both agree that this would be appropriate. I'm going to plan for this procedure tomorrow. At some point, she would probably benefit from a biventricular internal cardiac defibrillator, however I would like for her to be completely over any sort of infection before implanting a device. Current Medications Acetaminophen (Tylenol Tab) 650 mg PO Q4H PRN PRN Reason: Fever, Headache, Mild Pain Last Admin: 09/10/16 00:29 Dose: 650 mg Hydrocodone Bitart/Acetaminophen ([place]ak 5-325) 1 tablet PO Q4H PRN PRN Reason: Pain Mild (1-3) Last Admin: 09/09/16 16:41 Dose: 1 tablet Aspirin () 324 mg PO DAILY [facility] Last Admin: 09/10/16 09:11 Dose: 324 mg Atorvastatin Calcium (Lipitor) 20 mg PO DAILY [facility] Last Admin: 09/10/16 09:12 Dose: 20 mg Docusate Sodium (Colace Cap) 100 mg PO BID PRN PRN Reason: Constipation Furosemide (Lasix Inj) 40 mg IV BID DIURETIC [facility] Last Admin: 09/10/16 09:12 Dose: 40 mg Piperacillin Sod/Tazobactam (Sod 3,375 mg/ Sodium Chloride) 100 mls @ 25 mls/ hr IV Q8H [facility] Last Admin: 09/10/16 09:13 Dose: 25 mls/hr Metoprolol Tartrate (Lopressor Tab) 12.5 mg PO BID [facility] Last Admin: 09/10/16 09:12 Dose: 12.5 mg Nicotine (Nicoderm Cq 21) 1 patch TRANSDERM DAILY PRN PRN Reason: Nicotine Cravings Last Admin: 09/09/16 09:29 Dose: 1 patch Nitroglycerin (Nitrostat) 0.4 mg SL Q5M PRN PRN Reason: Chest Pain Last Admin: 09/09/16 00:19 Dose: 0.4 mg Ondansetron HCl (Zofran Inj) 4 mg IV Q4H PRN PRN Reason: Nausea Pantoprazole Sodium (Protonix Tab) 40 mg PO DAILY [facility] Last Admin: 09/10/16 09:12 Dose: 40 mg Exam (Progress Note) - Constitutional Vitals: Period Temp Pulse Resp BP Sys/Reyes Pulse Ox Last 24 Hr 97.3 F-98.2 F 57-73 16-22 120-168/71-81 93-98 Exam: General: Frail, elderly, somewhat chronically ill-appearing HEENT: Normocephalic, atraumatic Neck: Supple Neck, Midline Trachea Cardiac: Regular Rhythm, 2/6 systolic Murmur, no gallop, no rub Lungs: Clear to Ascultation, No Wheeze, Rales, Rhonchi Neuro: Cranial Nerve 2-12 Intact, diffuse generalized weakness Abdomen: Soft, Active Bowel Sounds, No Masses, No Pulsations/Bruits, somewhat protuberant, ? mild ascites Skin: Normal color, no rash Extremities: No Clubbing, No Cyanosis, No Edema, Normal Upper Extr. Pulses Musculoskeletal: No acute abnormality noted, diffuse muscular wasting Psychiatric: The patient is alert and oriented. The patient has a flat affect but does not appear to be anxious or depressed. Result/EKG - Labs CBC & BMP: 09/10/16 04:46 09/10/16 04:46 Lab Results: I have reviewed the past 24 hour labs Labs: Laboratory Results - last 24 hr 09/10/16 09/10/16 04:46 04:46 WBC 10.3 RBC 4.72 Hgb 13.1 Hct 40.7 MCV 86.2 L MCH 28 MCHC 32.2 RDW 14.2 Plt Count 273 D MPV 10.9 Neut % (Auto) 65.3 Lymph % (Auto) 22.1 [place] % (Auto) 9.5 Eos % (Auto) 2.0 Baso % (Auto) 0.6 Neut # (Auto) 6.7 Lymph # (Auto) 2.3 [place] # (Auto) 1.0 H Eos # (Auto) 0.2 Baso # (Auto) 0.1 Immature Gran % 0.5 Nucleated RBC % 0.0 Immature Gran # 0.05 Nucleated RBCs # 0.00 Sodium 141 Potassium 4.1 Chloride 102 Carbon Dioxide 30 Anion Gap 13.1 BUN 36 H Creatinine 1.60 H GFR Calculation 32 BUN/Creatinine Ratio 22.00 H Glucose 117 H Calculated Osmolality 289.3 Calcium 9.6 - EKG EKG results: interpreted by me
[2016-09-10] MEDS ORDERED: diphenhydrAMINE CAP 25 MG CAPSULE PO ONE (11:13)
[2016-09-10] MEDS ORDERED: MAGNESIUM SULF RIDER 2 GM in PREMIX 1 EACH IV PRN (11:13)
[2016-09-10] MEDS ORDERED: DIAZEPAM 5 MG TABLET PO ONE (11:13)
--- NOTE | 2016-09-10 13:24 | Hospitalist Progress Note ---
Assessment and Plan - Time spent with patient Time spent with patient: Greater than 30 minutes (1) Encephalopathy acute Status: Acute Assessment and plan: We will obtain MRI of the brain. Does not appear to be infectious metabolic or toxic. Current Visit: Yes (2) Syncope Status: Acute Assessment and plan: Continue workup. Current Visit: Yes (3) Abnormal cardiac enzyme level Status: Acute Assessment and plan: Defer to cardiology. Current Visit: Yes (4) Non-ischemic cardiomyopathy Status: Acute Assessment and plan: Defer to cardiology. Current Visit: Yes (5) Urinary tract infection Status: Acute Assessment and plan: Continue antibiotics. Current Visit: Yes (6) Acute on chronic systolic (congestive) heart failure Status: Acute Assessment and plan: Continue diuresis. Current Visit: Yes Hospitalist: Subjective Interval history: Patient is somewhat delirious this morning. She appears to be slightly more delirious than yesterday. Exam - Constitutional Vitals: Period Temp Pulse Resp BP Sys/Reyes Pulse Ox Last 24 Hr 97.3 F-98.6 F 60-87 18-22 120-168/71-96 93-98 General appearance: no acute distress - Head Head exam: Present: normocephalic, atraumatic - Eye Eye exam: Present: EOMI Pupils: Present: KATHY - ENT ENT exam: Present: normal exam - Neck Neck exam: Present: normal inspection - Respiratory Respiratory exam: Present: clear to auscultation bilaterally. Absent: rhonchi, wheezes - Cardiovascular Cardiovascular exam: Present: regular rate and rhythm. Absent: gallop, rubs, systolic murmur - GI/Abdominal GI/Abdominal exam: Present: normal bowel sounds, soft. Absent: distended, firm , guarding, tenderness, rebound - Extremities Exam Extremities exam: Present: normal inspection. Absent: calf tenderness, edema - Neurological Exam Neurological exam: Present: alert, CN II-XII intact. Absent: oriented X3 Results - Labs CBC & BMP: 09/10/16 04:46 09/10/16 04:46 Lab Results: I have reviewed the past 24 hour labs
[2016-09-10] MEDS ORDERED: SODIUM CHLORIDE 0.9% 500 ML IV ONE (17:25)
[2016-09-10 17:55] LABS: ABG Base Excess -2.1 MMOL/L (-2.5-2.5); ABG HCO3 22.7 MMOL/L (20-26); ABG Oxygen Saturation 98.1 % (95-100); ABG PCO2 36.5 MM HG (35-48); ABG PH 7.395 (7.35-7.45); ABG TCO2 19.5 MMOL/L (23-27)
[2016-09-10 18:02] LABS: CKMB % 1.7 %
[2016-09-10] MEDS: NOREPINEPHRINE 16 MG in SODIUM CHLORIDE 0.9% 234 ML IV SCH (18:10)
[2016-09-10 18:15] LABS: Troponin I Only 0.221 NG/ML (0.00-0.045)
[2016-09-10] MEDS ORDERED: SODIUM CHLORIDE 0.9% 1,000 ML IV ONE (21:18)
[2016-09-11 00:26] LABS: Troponin I Only 0.193 NG/ML (0.00-0.045)
[2016-09-11] MEDS: PIPERACILLIN/TAZOBACTAM 3,375 MG in SODIUM CHLORIDE 0.9% 100 ML IV SCH ×3 (01:06→17:49)
[2016-09-11 04:41] LABS: Troponin I Only 0.176 NG/ML (0.00-0.045)
--- NOTE | 2016-09-11 07:12 | EKG Report ---
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
[2016-09-11] MEDS: FUROSEMIDE 40 MG/4 ML VIAL IV SCH ×2 (09:31→17:48)
[2016-09-11] MEDS: LORazepam 2 MG/1 ML VIAL IV PRN (10:10)
--- NOTE | 2016-09-11 10:50 | Magnetic Resonance Report ---
Exam: MR head/brain wo con Date: 09/11/2016 Comparison: CT brain 09/08/2016 Indication: Encephalopathy Technical: 1.5 [place] magnet Axial T1 pre-and ADC, DWI, FLAIR, gradient echo and FSE T2 Sagittal T1 precontrast, FLAIR Coronal FSE T2 Contrast:0 cc Dotarem Findings: Exam reveals area of abnormal signal in the right cerebellum extending towards the vermix with bright signal on the DWI image and dark signal on ADC images consistent with an acute infarction. Single punctate area of abnormal signal in the left cerebellum also noted. The brainstem exhibit small area of bright signal foci in the right medial marisela. The cerebral hemispheres exhibit minimal small vessel signal changes. The corpus callosum is demonstrated with thinning The seventh and eighth cranial nerves and cerebral pontine angles are intact. The pituitary gland, infundibulum and optic chiasm are intact. The paranasal sinuses exhibit normal signal characteristics. The mastoid sinuses are unremarkable. The globes and intra-and extraconal spaces are unremarkable. Impression: 1. Acute Infarction involving the right cerebellum with a fairly large area of infarction present and contralateral small focal lacunar infarction in the left cerebellum. 2. Small focal area of infarction in the right brainstem at the marisela level 3. Minimal small vessel disease and mild atrophy also present PROCEDURE INTERPRETED AT [facility] DEPARTMENT OF RADIOLOGY Final Report Signed by: Dr. Apolinar Head
[2016-09-11] MEDS: PANTOPRAZOLE 40 MG TABLET PO SCH (11:33)
[2016-09-11] MEDS: METOPROLOL TARTRATE 25 MG TABLET PO SCH ×2 (11:33→21:59)
[2016-09-11] MEDS: ATORVASTATIN 20 MG TABLET PO SCH (11:33)
[2016-09-11] MEDS: ASPIRIN CHEW 81 MG TABLET PO SCH (11:33)
--- NOTE | 2016-09-11 11:37 | Cardiology Progress Note ---
Assessment and Plan (1) Acute CVA (cerebrovascular accident) Status: Acute Assessment and plan: We will defer this treatment to primary service. The question is what anticoagulation we should start. The patient has been on aspirin daily but may need to be continued as an suppository if continued. I would hold anticoagulation for possible transition to a hemorrhagic stroke early. General defer this. Current Visit: Yes (2) Urinary tract infection Status: Acute Assessment and plan: This is being treated by the primary service. Current Visit: Yes (3) Non-ischemic cardiomyopathy Status: Acute Assessment and plan: This patient has a chronic nonischemic cardiomyopathy with a (spot that may benefit from a biventricular AICD. Current Visit: Yes (4) Left bundle branch block Status: Chronic Assessment and plan: Patient may long-term benefit from a biventricular AICD specific cardiomyopathy. This will need to be on hold for the time though. Current Visit: Yes (5) Abnormal cardiac enzyme level Status: Acute Assessment and plan: These are really borderline. There is been no increase in CPKs. Current Visit: Yes Cardiology - PN: Subj Interval history: Apparently on September 08. Chart indicates that she had a fall according the chart felt dizzy at that time. She was admitted for evaluation. She's been having urinary tract infection at that time. She had a documented prior cardiomyopathy that was nonischemic and been followed by Dr. Mejia Santa who recently retired. CT of the head did reveal what was probably a small remote infarction at the cerebellum. Dr. Perkins saw the patient with the plans and possible cart catheterization today but yesterday developed some mental status changes. The patient's MRI today to reveal what appear to be acute infarction the right cerebellum and a fairly large area of infarction in the contralateral left cerebellum. Small focal area of infarction in the right brain stem. The patient at present is stable cardiac-charles in sinus rhythm and no heart failure etc. Unfortunately the patient has been given Ativan for the MRI altering her mental status course. Her troponin is been stable and unchanged. Telemetry continues to reveal sinus rhythm with some PACs and interventricular conduction delay consistent with a left bundle branch block. Exam (Progress Note) - Constitutional Vitals: Period Temp Pulse Resp BP Sys/Reyes Pulse Ox Last 24 Hr 96.9 F-98.6 F 21-87 12-31 83-129/44-96 93-98 Exam: General appearance: normal weight, no acute distress but she is somewhat sedated and frail appearing. HEENT exam: normal inspection, atraumatic Neck exam: normal inspection no JVD. No carotid bruit. Trachea is in midline Respiratory/lungs exam: clear to auscultation bilaterally good air movement. Cardiovascular exam: regular rate and rhythm, with 1 to 2/6 systolic murmur. No precordial lift. Chest wall exam: nontender GI/Abdominal exam: normal bowel sounds, soft, nontender. Extremeties/musculoskeletal: normal inspection without edema or cyanosis. Neurological exam: Patient tries to respond some but is sedated on Ativan and is post CVA. Psychiatric exam: Patient is sedated right now on Ativan. Skin exam: Warm and moist Result/EKG - Labs CBC & BMP: 09/10/16 04:46 09/10/16 04:46 Lab Results: I have reviewed the past 24 hour labs Labs: Laboratory Results - last 24 hr 09/10/16 09/10/16 09/10/16 16:08 17:18 17:27 ABG pH 7.395 ABG pCO2 36.5 ABG pO2 112.0 H ABG HCO3 22.7 ABG Total CO2 19.5 L ABG O2 Saturation 98.1 ABG Base Excess -2.1 POC Glucose 146 H Ammonia 32 Total Creatine Kinase CK-MB (CK-2) CK and CKMB Interp Troponin I 09/10/16 09/10/16 09/11/16 17:28 23:40 04:09 ABG pH ABG pCO2 ABG pO2 ABG HCO3 ABG Total CO2 ABG O2 Saturation ABG Base Excess POC Glucose Ammonia Total Creatine Kinase 304 H D 250 H 206 H CK-MB (CK-2) 5.3 H 4.6 H 4.3 H CK and CKMB Interp 1.7 Troponin I 0.221 H D 0.193 H 0.176 H - Impressions Impressions: ECGs reveals sinus rhythm with left bundle branch block. Telemetry continued to reveal sinus rhythm with intraventricular conduction delay.
--- NOTE | 2016-09-11 12:06 | Hospitalist Progress Note ---
Assessment and Plan - Time spent with patient Time spent with patient: Greater than 30 minutes (1) Acute CVA (cerebrovascular accident) Status: Acute Assessment and plan: Echo previously performed. Obtain carotid ultrasound. Consult neurology. Current Visit: Yes (2) Syncope Status: Acute Assessment and plan: May have been secondary to her CVA. Current Visit: Yes (3) Abnormal cardiac enzyme level Status: Acute Assessment and plan: Cardiology involved, however patient has acute CVA and LHC is on hold indefinitely. Current Visit: Yes (4) Non-ischemic cardiomyopathy Status: Acute Assessment and plan: Defer to cardiology. Current Visit: Yes (5) Urinary tract infection Status: Acute Assessment and plan: Continue antibiotics. Current Visit: Yes (6) Acute on chronic systolic (congestive) heart failure Status: Acute Assessment and plan: Continue diuresis. Current Visit: Yes Hospitalist: Subjective Interval history: Patient's asleep and difficult to arouse. No overnight events. At the time of this note she returned from the MRI which revealed an acute stroke. Exam - Constitutional Vitals: Period Temp Pulse Resp BP Sys/Reyes Pulse Ox Last 24 Hr 96.9 F-98.1 F 21-78 12-31 83-129/44-90 93-98 General appearance: normal weight, no acute distress - Head Head exam: Present: normal inspection, normocephalic, atraumatic - ENT ENT exam: Present: normal exam - Neck Neck exam: Present: normal inspection - Respiratory Respiratory exam: Present: clear to auscultation bilaterally. Absent: rhonchi, wheezes - Cardiovascular Cardiovascular exam: Present: regular rate and rhythm. Absent: gallop, rubs, systolic murmur - GI/Abdominal GI/Abdominal exam: Present: normal bowel sounds, soft. Absent: distended, firm , guarding, tenderness, rebound - Extremities Exam Extremities exam: Present: normal inspection. Absent: calf tenderness, edema Results - Labs CBC & BMP: 09/10/16 04:46 09/10/16 04:46 Lab Results: I have reviewed the past 24 hour labs
[2016-09-11] MEDS: METOPROLOL TARTRATE 5 MG/5 ML VIAL IV SCH ×2 (12:31→18:46)
--- NOTE | 2016-09-11 15:53 | Neurology Consult Note ---
History of Present Illness History of present illness: Pt is unable to provide me any history. History basically obtained from the [facility]. Ms. Baez is a 75 year old RH white female that presented to the ED after a fall. She was at home watching her dog play. She got up to move near the dog and while returning back to her seat, she lost balance and fell. She hit her right shoulder and maybe head. She felt dizzy while this was happening. She denied any prior history of this type of incident. She also denied loss of consciousness, vision changes, tinnuitis, chest pain, nausea or vomiting. Pt. has a history of CHF, UT, hypertension, COPD, ulcers, and arthritis. Pt also admits to past alcohol abuse. MRI brain showed large irhgt cerebellar and a smaller left cerebellar acute infarct. Home Medications Medication Instructions Recorded Confirmed Type Acetaminophen Tab [Tylenol Tab] 500 mg PO BID 09/08/16 09/08/16 History Aspirin 325 mg PO DAILY 09/08/16 09/08/16 History Atorvastatin [Lipitor] 20 mg PO DAILY 09/08/16 09/08/16 History Carvedilol [Coreg] 25 mg PO DAILY 09/08/16 09/08/16 History Fosinopril [Monopril] 10 mg PO DAILY 09/08/16 09/08/16 History Lansoprazole [Prevacid] 30 mg PO DAILY 09/08/16 09/08/16 History Allergies Allergy/AdvReac Type Severity Reaction Status Date / Time Sulfa (Sulfonamide Allergy RASH Verified 09/08/16 12:41 Antibiotics) ROS unobtainable: due to mental status Medical,Surgical,& Family Hx - Medical History Cardio: History of: CAD, Hypertension, UT Psychological: History of: Anxiety Disorders Endocrine: History of: Dyslipidemia - Surgical History HEENT Surgeries: Surgical HX of: Tonsilectomy & Adenoidectomy Reproductive Surgeries: Surgical HX of;: Hysterectomy - Family History Family History: Reports;: Family Heart Disease, Family Hypertension - Social History Smoking Status: Current every day smoker Frequency of Alcohol Use: None Type of Drug Use: None Exam - Constitutional Vitals: Period Temp Pulse Resp BP Sys/Reyes Pulse Ox Last 24 Hr 96.9 F-98.1 F 21-78 12-31 83-129/44-90 93-98 Exam: GENERAL: Patient is in no acute distress. NECK: Neck is supple. There is no JVD. No carotid bruits present. No thyroid masses. CVS: First and second heart sounds are normal. There is no S3 present. Regular rate and rhythm. RESPIRATORY: Lungs are clear to auscultation without any rales or rhonchi. ABDOMEN: Soft and non-tender. Bowel sounds are present. There is no hepatosplenomegaly. EXT: There is no palpable edema. Peripheral pulses are present. Skin: No rashes Central Nervous system: General: Sedated for MRI Speech: Fluent Comprehension: Intact and normal Facial expressions: Normal Cranial Nerves: Pupils are reactive 3 mm . Dolls head +. No facial asymmetry seen. Motor: Bulk and Tone is normal. Strength can not assessed Sensory: Can not be assessed Reflexes: 1+ and symmetrical Cerebellar function: Can not be assessed Gait: Can not be assessed Results - Labs CBC & BMP: 09/10/16 04:46 09/10/16 04:46 Assessment and Plan (1) Cerebellar infarct Status: Acute Assessment and plan: Repeat CT head in a.m Neuro checks q2 Cont ASa Start and cont coumadin 5 mg po daily PT, OT and ST Thank you for the consult Current Visit: Yes
--- NOTE | 2016-09-11 17:38 | XRay Report ---
Portable chest Date: 09/11/2016 Clinical history: Feeding tube placement Comparison: 09/08/2016 Technique: Portable AP sitting chest Findings: The tip of the feeding tube projects in the stomach. Limited evaluation of the chest with persistent cardiomegaly. Impression: The feeding tube projects in the stomach. PROCEDURE INTERPRETED AT [facility] DEPARTMENT OF RADIOLOGY Final Report Signed by: Dr. Jessica Mederos
[2016-09-11] MEDS: NOREPINEPHRINE 16 MG in SODIUM CHLORIDE 0.9% 234 ML IV SCH (17:48)
[2016-09-11] MEDS: WARFARIN 5 MG TABLET PO SCH (17:48)
[2016-09-12] MEDS: PIPERACILLIN/TAZOBACTAM 3,375 MG in SODIUM CHLORIDE 0.9% 100 ML IV SCH (01:02)
[2016-09-12 01:42] LABS: Apearance,Urine CLOUDY (Clear); Bacteria,Urine Few /HPF (Few); Bilirubin,Urine Negative (Negative); Blood, Urine Large mg/dL (Negative); Glucose,Urine (UA) Negative (Negative); Hyaline Casts,Urine 6 /LPF (0-3); Ketones,Urine Negative (Negative); Nitrite,Urine Negative (Negative); Protein,Urine Negative; RBC,Urine 39 /HPF (0-4); Urine Color Yellow (Yellow); Urine Specific Gravity 1.008 (1.001-1.035); Urine Urobilinogen < 2.0 EU/DL (0.2-1.0); WBC,Urine 2 /HPF (0-6)
[2016-09-12 04:44] LABS: Basophils # 0.1 10*3/uL (0.0-0.2); Basophils % 0.3 % (0.0-0.8); Eosinophils # 0.1 10*3/uL (0.0-0.87); Eosinophils % 0.4 % (0.00-10.9); Hematocrit 37.2 VOL% (35.7-47.0); Hemoglobin 11.8 GM/DL (12.0-16.0); Immature Granulocytes % 0.6 %; Immature Granulocytes Absolute 0.11 #; Lymphocytes # 1.8 10*3/uL (1.4-4.0); Lymphocytes % 10.6 % (21.3-54.2); Mean Corpuscular HGB Conc 31.7 GM/DL (32-36); Mean Corpuscular Hemoglobin 28 PG (27-34); Mean Corpuscular Volume 87.9 FL (87-102); Mean Platelet Volume 10.7 FL (9.6-12.0); Monocytes # 1.3 10*3/uL (0.11-0.8); Monocytes % 7.8 % (1.7-12.7); Neutrophils # 13.6 10*3/uL (1.4-7.4); Neutrophils % 80.3 % (38.7-73.9); Platelet Count 251 T/CUMM (130-400); Red Blood Count 4.23 MC/CUMM (3.8-5.5); Red Cell Distribution Width 14.9 % (9.3-17.3)
[2016-09-12 05:14] LABS: Calcium 8.7 MG/DL (8.5-10.1); Magnesium 2.5 MG/DL (1.8-2.4); Osmolality,Calculated 305.6 MOS/KG (273-304); Potassium 3.4 MMOL/L (3.5-5.1)
[2016-09-12 05:15] LABS: Calcium 8.6 MG/DL (8.5-10.1); Osmolality,Calculated 304.6 MOS/KG (273-304); Potassium 3.7 MMOL/L (3.5-5.1)
--- NOTE | 2016-09-12 08:38 | CT Report ---
CT head/brain wo con Indication: CVA Comparison: None. Technique: CT of the brain was performed without administration of intravenous contrast. The CT examination was performed using one or more of the following dose reduction techniques: Automatic exposure control, adjustment of the mA and kV according to patient size, use of acute or iterative reconstruction techniques. Findings: Low-attenuation involving medial cortex and white matter of the posterior left occipital lobe compatible with subacute or aging infarction is stable. The degree of generalized atrophy involving the cerebral hemispheres is stable. Bilateral areas of hypoattenuation within the periventricular white matter are unchanged. There is no evidence of acute hemorrhage. The basal cisterns are patent. Low-attenuation additionally present within the right cerebellar hemisphere measures 3.6 x 3.5 cm compatible with subacute infarction to early remote infarction. Minimal effacement of the folia are noted. Orbits and globes demonstrate no evidence of significant pathology. The paranasal sinuses are clear. No significant abnormality is demonstrated to involve the mastoid air cells. The calvarium and overlying soft tissues demonstrate no evidence of acute pathology. Impression: 1. Interval evolution of left occipital infarction. 2. Interval development of hypoattenuation within the right cerebellar hemisphere compatible with right cerebellar infarction. 09/12/2016 8:32 AM PROCEDURE INTERPRETED AT [facility] DEPARTMENT OF RADIOLOGY Final Report Signed by: Dr. Rigo Beebe
[2016-09-12] MEDS ORDERED: PANTOPRAZOLE 40 MG VIAL IV SCH (09:00)
[2016-09-12] MEDS: ATORVASTATIN 20 MG TABLET PO SCH (09:10)
[2016-09-12] MEDS: METOPROLOL TARTRATE 25 MG TABLET PO SCH (09:10)
[2016-09-12] MEDS ORDERED: METOPROLOL TARTRATE 25 MG TABLET PO ONE (09:51)
--- NOTE | 2016-09-12 09:55 | Cardiology Progress Note ---
<Ida Kemp E - Last Filed: 09/12/16 09:36> Assessment and Plan - Time spent with patient Time spent with patient: Greater than 30 minutes (1) Hypertension Status: Chronic Assessment and plan: See plan of care listed below Current Visit: Yes (2) Dyslipidemia Status: Chronic Assessment and plan: See plan of care listed below Current Visit: Yes (3) Tobacco abuse Status: Chronic Assessment and plan: See plan of care listed below Current Visit: Yes (4) Urinary tract infection Status: Acute Assessment and plan: See plan of care listed below Current Visit: Yes (5) Non-ischemic cardiomyopathy Status: Chronic Assessment and plan: See plan of care listed below Current Visit: Yes (6) Left bundle branch block Status: Chronic Assessment and plan: See plan of care listed below Current Visit: Yes (7) Abnormal cardiac enzyme level Status: Acute Assessment and plan: See plan of care listed below Current Visit: Yes (8) Acute CVA (cerebrovascular accident) Status: Acute Assessment and plan: See plan of care listed below Current Visit: Yes Cardiology - PN: Subj 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 GOLDBERG SUMMARY: Many years ago, patient was diagnosed with severe nonischemic cardiomyopathy and had been followed by Dr. Santa. She underwent cardiac catheterization many years ago with Dr. Rivas which did not reveal significant obstructive coronary artery disease. History of hypertension, dyslipidemia, congestive heart failure, COPD (long-standing history of tobaccoism), ulcers and arthritis. September 08, 2016, patient was brought to the emergency department at [facility] after experiencing a fall. Troponins were mildly elevated as was her proBNP (3483.) Echocardiogram reveals EF 20-25% , mild to moderate mitral regurgitation, moderate concentric left ventricular hypertrophy. Patient was being considered for cardiac catheterization when she became difficult to arouse. Yesterday, she underwent MRI of the brain which revealed acute infarction of the right cerebellum and a fairly large area of infarction in the contralateral left cerebellum, small focal area infarction in the right brainstem. Warfarin was initiated yesterday by Dr. Hahn. DAY SEPTEMBER 12, 2016: This morning, patient arouses and tells me she is having no chest pain, heaviness or tightness. She is still lethargic but improved. She is moving all extremities without hemiparesis for me this morning. She appears to be very comfortable without dyspnea. Troponins are stable, and in retrospect, mild elevation may be related to her recent CVAs. Systolic blood pressure averaging 130s-150s. Today, I will increase her beta blockade for better blood pressure control. Avoiding DAQUAN inhibitors due to her elevated creatinine. ProBNP is 4456 this morning but may be falsely elevated due to her worsening kidney function. She is not dyspneic. Chest x-ray yesterday did not reveal CHF. Since admission, patient has diuresed 3-1/2 kg. Telemetry continues to reveal sinus rhythm with some PACs and interventricular conduction delay consistent with a left bundle branch block. Patient may benefit from Lovenox until INR is therapeutic. We will verify the patient does have on SCDs or TEDs hose ASSESSMENT/PLAN: 1. ACUTE CVA -appreciate neurology's input. 2. NICM (EF 20-25%) -increasing beta-blockade. Avoiding DAQUAN inhibitors due to worsening renal insufficiency 3. HYPERTENSION -adequately controlled 4. DYSLIPIDEMIA -continue lipid-lowering agent 5. UTI -has been treated 6. LBBB -chronic 7. ACUTE RENAL INSUFFICIENCY, STAGE III -creatinine has worsened overnight. Defer to attending for further management. 8. TOBACCOISM -continue with NicoDerm patch 9. ELEVATED TROPONIN -may be related to her acute CVA. The troponins have been flat. At this point, she denies having chest pain, heaviness or tightness. She is not a candidate for heart catheterization until her multiple comorbidities have improved. Exam (Progress Note) - Constitutional Vitals: Period Temp Pulse Resp BP Sys/Reyes Pulse Ox Last 24 Hr 97.0 F-98.7 F 59-80 14-29 109-155/43-86 93-100 Exam: General: [Groggy but wakes and follows commands appropriately. Pleasant and cooperative HEENT: [normocephalic, atraumatic. Mucous membranes moist. No jaundice noted. Conjunctiva moist and clear, sclerae anicteric] Neck: No JVD/HJR, no thyromegaly or lymphadenopathy noted. No carotid bruit appreciated Cardiac: [Regular rate and rhythm.] [II/ AIMEE heard best at 2ICS right. Lungs: [Clear to auscultation without accessory muscle use to assist the respiratory pattern.] Not requiring oxygen Abdomen: Soft, bowel sounds normoactive. Nontender and nondistended. No abdominal bruit or thrill noted. No masses noted. Musculoskeletal: No fluid collection. Decreased range of motion is noted. Extremities: No clubbing, cyanosis noted. [ No edema noted.] Upper extremity pulses 2+. Lower extremity pulses 2+. Capillary refill less than 3 seconds. Skin: No unusual lesions or rashes. No skin breakdown appreciated. Neuro: Awake, alert and oriented to person. Moves all extremities without hemiparesis or paralysis. No essential tremor is appreciated. Result/EKG - Labs CBC & BMP: 09/12/16 04:10 09/12/16 04:10 Lab Results: I have reviewed the past 24 hour labs Labs: Laboratory Results - last 24 hr 09/12/16 09/12/16 09/12/16 00:00 04:10 04:10 WBC 17.0 H D RBC 4.23 Hgb 11.8 L Hct 37.2 MCV 87.9 MCH 28 MCHC 31.7 L RDW 14.9 Plt Count 251 MPV 10.7 Neut % (Auto) 80.3 H Lymph % (Auto) 10.6 L Kerr % (Auto) 7.8 Eos % (Auto) 0.4 Baso % (Auto) 0.3 Neut # (Auto) 13.6 H Lymph # (Auto) 1.8 Kerr # (Auto) 1.3 H Eos # (Auto) 0.1 Baso # (Auto) 0.1 Immature Gran % 0.6 Nucleated RBC % 0.0 Immature Gran # 0.11 Nucleated RBCs # 0.00 Sodium 146 H Potassium 3.4 L Chloride 110 H Carbon Dioxide 22 Anion Gap 17.4 H BUN 63 H Creatinine 2.40 H GFR Calculation 19 BUN/Creatinine Ratio 26.00 H Glucose 70 L Calculated Osmolality 305.6 H Calcium 8.7 Magnesium 2.5 H Urine Color Yellow Urine Appearance Cloudy Urine pH 5.0 Ur Specific Manor 1.008 Urine Protein Negative Urine Glucose (UA) Negative Urine Ketones Negative Urine Blood Large Urine Nitrate Negative Urine Bilirubin Negative Urine Urobilinogen < 2.0 H Urine Leukocytes Negative Urine RBC 39 Urine WBC 2 Urine Bacteria Few Hyaline Casts 6 Ur Culture Indicated? Not indicated 09/12/16 04:10 WBC RBC Hgb Hct MCV MCH MCHC RDW Plt Count MPV Neut % (Auto) Lymph % (Auto) Kerr % (Auto) Eos % (Auto) Baso % (Auto) Neut # (Auto) Lymph # (Auto) Kerr # (Auto) Eos # (Auto) Baso # (Auto) Immature Gran % Nucleated RBC % Immature Gran # Nucleated RBCs # Sodium 146 H Potassium 3.7 Chloride 111 H Carbon Dioxide 21 Anion Gap 17.7 H BUN 61 H Creatinine 2.40 H GFR Calculation 19 BUN/Creatinine Ratio 25.00 H Glucose 62 L Calculated Osmolality 304.6 H Calcium 8.6 Magnesium Urine Color Urine Appearance Urine pH Ur Specific Manor Urine Protein Urine Glucose (UA) Urine Ketones Urine Blood Urine Nitrate Urine Bilirubin Urine Urobilinogen Urine Leukocytes Urine RBC Urine WBC Urine Bacteria Hyaline Casts Ur Culture Indicated? - EKG EKG results: interpreted by me EKG shows: sinus rhythm (Left bundle branch block, occasional PAC) <Tate Rivas - Last Filed: 09/12/16 12:02> Assessment and Plan (1) Acute CVA (cerebrovascular accident) Status: Acute Current Visit: Yes (2) Urinary tract infection Status: Acute Current Visit: Yes (3) Non-ischemic cardiomyopathy Status: Chronic Current Visit: Yes (4) Left bundle branch block Status: Chronic Current Visit: Yes (5) Abnormal cardiac enzyme level Status: Acute Current Visit: Yes Cardiology - PN: Subj Interval history: The patient's chart was reviewed and the patient was interviewed and examined. Her family is present for time. Discussed the case with Ida Kemp NP. I agree with her note and assessment. The patient now has a NG tube. She is progressing from her stroke and today he is more alert and responsive and order baseline. She is moving all extremities. Family indicates that she is having a aortic aneurysm that has been monitored. At this time I discussed with them that her heart catheterization would be put off until is received the patient's progressing adequately. Continue to monitor the patient and see how she progresses and make a decision regarding timing of the cardiac catheterization. Exam (Progress Note) - Constitutional Vitals: Period Temp Pulse Resp BP Sys/Reyes Pulse Ox Last 24 Hr 97.0 F-98.7 F 59-80 14-29 109-155/43-86 93-100 Result/EKG - Labs CBC & BMP: 09/12/16 04:10 09/12/16 04:10 Labs: Laboratory Results - last 24 hr 09/12/16 09/12/16 09/12/16 00:00 04:10 04:10 WBC 17.0 H D RBC 4.23 Hgb 11.8 L Hct 37.2 MCV 87.9 MCH 28 MCHC 31.7 L RDW 14.9 Plt Count 251 MPV 10.7 Neut % (Auto) 80.3 H Lymph % (Auto) 10.6 L Kerr % (Auto) 7.8 Eos % (Auto) 0.4 Baso % (Auto) 0.3 Neut # (Auto) 13.6 H Lymph # (Auto) 1.8 Kerr # (Auto) 1.3 H Eos # (Auto) 0.1 Baso # (Auto) 0.1 Immature Gran % 0.6 Nucleated RBC % 0.0 Immature Gran # 0.11 Nucleated RBCs # 0.00 Sodium 146 H Potassium 3.4 L Chloride 110 H Carbon Dioxide 22 Anion Gap 17.4 H BUN 63 H Creatinine 2.40 H GFR Calculation 19 BUN/Creatinine Ratio 26.00 H Glucose 70 L Calculated Osmolality 305.6 H Calcium 8.7 Magnesium 2.5 H Urine Color Yellow Urine Appearance Cloudy Urine pH 5.0 Ur Specific Manor 1.008 Urine Protein Negative Urine Glucose (UA) Negative Urine Ketones Negative Urine Blood Large Urine Nitrate Negative Urine Bilirubin Negative Urine Urobilinogen < 2.0 H Urine Leukocytes Negative Urine RBC 39 Urine WBC 2 Urine Bacteria Few Hyaline Casts 6 Ur Culture Indicated? Not indicated 09/12/16 04:10 WBC RBC Hgb Hct MCV MCH MCHC RDW Plt Count MPV Neut % (Auto) Lymph % (Auto) Kerr % (Auto) Eos % (Auto) Baso % (Auto) Neut # (Auto) Lymph # (Auto) Kerr # (Auto) Eos # (Auto) Baso # (Auto) Immature Gran % Nucleated RBC % Immature Gran # Nucleated RBCs # Sodium 146 H Potassium 3.7 Chloride 111 H Carbon Dioxide 21 Anion Gap 17.7 H BUN 61 H Creatinine 2.40 H GFR Calculation 19 BUN/Creatinine Ratio 25.00 H Glucose 62 L Calculated Osmolality 304.6 H Calcium 8.6 Magnesium Urine Color Urine Appearance Urine pH Ur Specific Manor Urine Protein Urine Glucose (UA) Urine Ketones Urine Blood Urine Nitrate Urine Bilirubin Urine Urobilinogen Urine Leukocytes Urine RBC Urine WBC Urine Bacteria Hyaline Casts Ur Culture Indicated?
--- NOTE | 2016-09-12 11:57 | Hospitalist Progress Note ---
Assessment and Plan - Time spent with patient Time spent with patient: Greater than 30 minutes (1) Acute CVA (cerebrovascular accident) Status: Acute Assessment and plan: Echo previously performed. Appreciate evaluation from neurology. Current Visit: Yes (2) Syncope Status: Acute Assessment and plan: Undergone workup. Current Visit: Yes (3) Abnormal cardiac enzyme level Status: Acute Assessment and plan: Cardiology involved, however patient has acute CVA and LHC is on hold indefinitely. Current Visit: Yes (4) Non-ischemic cardiomyopathy Status: Chronic Assessment and plan: Defer to cardiology. Current Visit: Yes (5) Urinary tract infection Status: Acute Assessment and plan: Continue antibiotics. Current Visit: Yes (6) Acute on chronic systolic (congestive) heart failure Status: Acute Assessment and plan: Continue diuresis. Current Visit: Yes Hospitalist: Subjective Interval history: No overnight events. She is more alert this morning. Exam - Constitutional Vitals: Period Temp Pulse Resp BP Sys/Reyes Pulse Ox Last 24 Hr 97.0 F-98.7 F 59-80 14-29 109-155/43-86 93-100 General appearance: no acute distress - Head Head exam: Present: normocephalic, atraumatic - Eye Eye exam: Present: EOMI Pupils: Present: KATHY - ENT ENT exam: Present: normal exam - Neck Neck exam: Present: normal inspection - Respiratory Respiratory exam: Present: clear to auscultation bilaterally. Absent: rhonchi, wheezes - Cardiovascular Cardiovascular exam: Present: regular rate and rhythm. Absent: gallop, rubs, systolic murmur - GI/Abdominal GI/Abdominal exam: Present: normal bowel sounds, soft. Absent: distended, firm , guarding, tenderness, rebound - Extremities Exam Extremities exam: Present: normal inspection. Absent: calf tenderness, edema Results - Labs CBC & BMP: 09/12/16 04:10 09/12/16 04:10 Lab Results: I have reviewed the past 24 hour labs
[2016-09-12] MEDS ORDERED: PIPERACILLIN/TAZOBACTAM 3,375 MG in SODIUM CHLORIDE 0.9% 100 ML IV SCH (13:00)
--- NOTE | 2016-09-12 17:32 | Neurology Progress Note ---
Neurology - PN : Subjective Interval history: Patient seems to be doing much better. She is alert awake and oriented. She is following commands. Moving all 4 extremities. She is swallowing better. Repeat CAT scan reveals no bleeding. Exam (Progress Note) - Constitutional Vitals: Period Temp Pulse Resp BP Sys/Reyes Pulse Ox Last 24 Hr 97.8 F-98.7 F 55-80 15-24 109-155/43-86 94-100 Exam: GENERAL: Patient is in no acute distress. NECK: Neck is supple. There is no JVD. No carotid bruits present. No thyroid masses. CVS: First and second heart sounds are normal. There is no S3 present. Regular rate and rhythm. RESPIRATORY: Lungs are clear to auscultation without any rales or rhonchi. ABDOMEN: Soft and non-tender. Bowel sounds are present. There is no hepatosplenomegaly. EXT: There is no palpable edema. Peripheral pulses are present. Skin: No rashes Central Nervous system: General: Alert and awake Speech: Fluent Comprehension: Intact and normal Facial expressions: Normal Cranial Nerves: Pupils are reactive 3 mm . Dolls head +. No facial asymmetry seen. Motor: Bulk and Tone is normal. Strength, moving all 4 extremities Sensory: Can not be assessed Reflexes: 1+ and symmetrical Cerebellar function: Can not be assessed Gait: Can not be assessed Results - Labs CBC & BMP: 09/12/16 04:10 09/12/16 04:10 Assessment and Plan (1) Cerebellar infarct Status: Acute Assessment and plan: Repeat CT head in a.m Neuro checks every 6 Cont ASa cont coumadin 5 mg po daily PT, OT and ST Consult TMR Current Visit: Yes
[2016-09-12] MEDS: WARFARIN 5 MG TABLET PO SCH (17:47)
[2016-09-12] MEDS ORDERED: METOPROLOL TARTRATE 25 MG TABLET PO SCH (21:00)
[2016-09-12] MEDS: CIPROFLOXACIN 500 MG TABLET PO SCH (22:08)
[2016-09-12] MEDS: DEXTROSE 5% NACL 0.45% 500 ML IV SCH (23:26)
[2016-09-13] MEDS: DEXTROSE 5% NACL 0.45% 500 ML IV SCH (04:36)
[2016-09-13 04:48] LABS: Basophils % 0.2 % (0.0-0.8); Eosinophils # 0.1 10*3/uL (0.0-0.87); Eosinophils % 0.6 % (0.00-10.9); Hematocrit 36.4 VOL% (35.7-47.0); Hemoglobin 11.7 GM/DL (12.0-16.0); Immature Granulocytes % 0.8 %; Immature Granulocytes Absolute 0.11 #; Lymphocytes # 1.3 10*3/uL (1.4-4.0); Lymphocytes % 9.6 % (21.3-54.2); Mean Corpuscular HGB Conc 32.1 GM/DL (32-36); Mean Corpuscular Hemoglobin 28 PG (27-34); Mean Corpuscular Volume 86.7 FL (87-102); Mean Platelet Volume 11.4 FL (9.6-12.0); Monocytes # 0.9 10*3/uL (0.11-0.8); Monocytes % 6.4 % (1.7-12.7); Neutrophils # 11.4 10*3/uL (1.4-7.4); Neutrophils % 82.4 % (38.7-73.9); Platelet Count 245 T/CUMM (130-400); Red Cell Distribution Width 14.6 % (9.3-17.3); White Blood Count 13.8 T/CUMM (4-12)
[2016-09-13 05:00] LABS: INR 1.9
[2016-09-13 05:15] LABS: Calcium 9.3 MG/DL (8.5-10.1); Magnesium 2.2 MG/DL (1.8-2.4); Osmolality,Calculated 293.4 MOS/KG (273-304); Potassium 3.3 MMOL/L (3.5-5.1)
[2016-09-13] MEDS: POTASSIUM CHLORIDE RIDER 10 MEQ in PREMIX 1 EACH IV PRN ×2 (07:42→08:49)
--- NOTE | 2016-09-13 08:13 | Cardiology Progress Note ---
<Ida Kemp E - Last Filed: 09/13/16 08:03> Assessment and Plan - Time spent with patient Time spent with patient: Greater than 30 minutes (1) Hypertension Status: Chronic Assessment and plan: See plan of care listed below Current Visit: Yes (2) Dyslipidemia Status: Chronic Assessment and plan: See plan of care listed below Current Visit: Yes (3) Tobacco abuse Status: Chronic Assessment and plan: See plan of care listed below Current Visit: Yes (4) Urinary tract infection Status: Acute Assessment and plan: See plan of care listed below Current Visit: Yes (5) Non-ischemic cardiomyopathy Status: Chronic Assessment and plan: See plan of care listed below Current Visit: Yes (6) Left bundle branch block Status: Chronic Assessment and plan: See plan of care listed below Current Visit: Yes (7) Abnormal cardiac enzyme level Status: Acute Assessment and plan: See plan of care listed below Current Visit: Yes (8) Acute CVA (cerebrovascular accident) Status: Acute Assessment and plan: See plan of care listed below Current Visit: Yes (9) Hypokalemia Status: Acute Current Visit: Yes Cardiology - PN: Subj Interval history: ACCOUNTS RECEIVABLE CLERK: DR. GOLDBERG SUMMARY: Many years ago, patient was diagnosed with severe nonischemic cardiomyopathy and had been followed by Dr. Santa. She underwent cardiac catheterization many years ago with Dr. Rivas which did not reveal significant obstructive coronary artery disease. History of hypertension, dyslipidemia, congestive heart failure, COPD (long-standing history of tobaccoism), ulcers and arthritis. September 08, 2016, patient was brought to the emergency department at [facility] after experiencing a fall. Troponins were mildly elevated as was her proBNP (3483.) Echocardiogram reveals EF 20-25% , mild to moderate mitral regurgitation, moderate concentric left ventricular hypertrophy. Patient was being considered for cardiac catheterization when she became difficult to arouse. Yesterday, she underwent MRI of the brain which revealed acute infarction of the right cerebellum and a fairly large area of infarction in the contralateral left cerebellum, small focal area infarction in the right brainstem. Warfarin was initiated Sunday by Dr. Hahn. DAY SEPTEMBER 13, 2016: Patient continues to improve. Repeat CT of head reveals no hemorrhage. Moving all extremities this morning. Systolic blood pressure averaging 140s-170s. Heart rate stable. Having frequent PACs this morning. Will increase her metoprolol today. Replete potassium. White blood cell count has decreased overnight. Creatinine has also improved overnight from 2.4-1.6. Will continue to avoid DAQUAN inhibitors due to fear of worsening her renal insufficiency. Consistently denies having a history of chest pain. ASSESSMENT/PLAN: 1. ACUTE CVA - appreciate neurology's input. Improving. On warfarin and aspirin. 2. NICM (EF 20-25%) - increasing beta-blockade. Avoiding DAQUAN inhibitors due to worsening renal insufficiency 3. HYPERTENSION -adjusting medications for better control today 4. DYSLIPIDEMIA -continue lipid-lowering agent 5. UTI -has been treated 6. LBBB - chronic 7. ACUTE RENAL INSUFFICIENCY, STAGE III - creatinine has improved overnight. Defer to attending for further management. 8. TOBACCOISM - continue with NicoDerm patch 9. ELEVATED TROPONIN -may be related to her acute CVA. The troponins have been flat. At this point, she denies having chest pain, heaviness or tightness. She is not a candidate for heart catheterization until her multiple comorbidities have improved. 10. HYPOKALEMIA -replace today and monitor daily Exam (Progress Note) - Constitutional Vitals: Period Temp Pulse Resp BP Sys/Reyes Pulse Ox Last 24 Hr 98.4 F-99.0 F 55-95 15-23 107-172/50-89 95-100 Exam: General: [Groggy but wakes and follows commands appropriately. Pleasant and cooperative HEENT: [normocephalic, atraumatic. Mucous membranes moist. No jaundice noted. Conjunctiva moist and clear, sclerae anicteric] Neck: No JVD/HJR, no thyromegaly or lymphadenopathy noted. No carotid bruit appreciated Cardiac: [Regular rate and rhythm.] [II/ AIMEE heard best at 2ICS right. Lungs: [Clear to auscultation without accessory muscle use to assist the respiratory pattern.] Not requiring oxygen Abdomen: Soft, bowel sounds normoactive. Nontender and nondistended. No abdominal bruit or thrill noted. No masses noted. Musculoskeletal: No fluid collection. Decreased range of motion is noted. Extremities: No clubbing, cyanosis noted. [ No edema noted.] Upper extremity pulses 2+. Lower extremity pulses 2+. Capillary refill less than 3 seconds. Skin: No unusual lesions or rashes. No skin breakdown appreciated. Neuro: Awake, alert and oriented to person. Moves all extremities without hemiparesis or paralysis. No essential tremor is appreciated. Result/EKG - Labs CBC & BMP: 09/13/16 04:16 09/13/16 04:16 Lab Results: I have reviewed the past 24 hour labs Labs: Laboratory Results - last 24 hr 09/13/16 09/13/16 09/13/16 04:16 04:16 04:16 WBC 13.8 H RBC 4.20 Hgb 11.7 L Hct 36.4 MCV 86.7 L MCH 28 MCHC 32.1 RDW 14.6 Plt Count 245 MPV 11.4 Neut % (Auto) 82.4 H Lymph % (Auto) 9.6 L Person % (Auto) 6.4 Eos % (Auto) 0.6 Baso % (Auto) 0.2 Neut # (Auto) 11.4 H Lymph # (Auto) 1.3 L Person # (Auto) 0.9 H Eos # (Auto) 0.1 Baso # (Auto) 0.0 Immature Gran % 0.8 Nucleated RBC % 0.0 Immature Gran # 0.11 Nucleated RBCs # 0.00 INR 1.9 PT Patient/Control Mix 21.0 D Sodium 140 Potassium 3.3 L Chloride 102 Carbon Dioxide 25 Anion Gap 16.3 H BUN 51 H Creatinine 1.60 H GFR Calculation 31 BUN/Creatinine Ratio 31.00 H Glucose 111 H Calculated Osmolality 293.4 Calcium 9.3 Magnesium 2.2 - EKG EKG results: interpreted by me EKG shows: sinus rhythm <Tate Rivas - Last Filed: 09/13/16 10:48> Assessment and Plan (1) Acute CVA (cerebrovascular accident) Status: Acute Current Visit: Yes (2) Urinary tract infection Status: Acute Current Visit: Yes (3) Non-ischemic cardiomyopathy Status: Chronic Current Visit: Yes (4) Left bundle branch block Status: Chronic Current Visit: Yes (5) Abnormal cardiac enzyme level Status: Acute Current Visit: Yes Cardiology - PN: Subj Interval history: Patient personally interviewed and examined and chart reviewed. I discussed this case with Ida Kemp NP. I agree with the history as well as exam and assessment. The patient's blood pressure still up some and her beta blockers been increased. We may need to adjust her other medications for better control. She has had a cerebellar stroke and is on warfarin now. She has been monitored by Dr. Hahn. Certainly from a cardiac standpoint we will hold off the cart catheterization to this patient is had time to recuperate from the ongoing issues in her recent stroke. Her troponins have been flat and not indicative of an acute infarct. Exam (Progress Note) - Constitutional Vitals: Period Temp Pulse Resp BP Sys/Reyes Pulse Ox Last 24 Hr 97.7 F-99.0 F 55-95 15-34 107-173/50-89 95-100 Result/EKG - Labs CBC & BMP: 09/13/16 04:16 09/13/16 04:16 Labs: Laboratory Results - last 24 hr 09/13/16 09/13/16 09/13/16 04:16 04:16 04:16 WBC 13.8 H RBC 4.20 Hgb 11.7 L Hct 36.4 MCV 86.7 L MCH 28 MCHC 32.1 RDW 14.6 Plt Count 245 MPV 11.4 Neut % (Auto) 82.4 H Lymph % (Auto) 9.6 L Person % (Auto) 6.4 Eos % (Auto) 0.6 Baso % (Auto) 0.2 Neut # (Auto) 11.4 H Lymph # (Auto) 1.3 L Person # (Auto) 0.9 H Eos # (Auto) 0.1 Baso # (Auto) 0.0 Immature Gran % 0.8 Nucleated RBC % 0.0 Immature Gran # 0.11 Nucleated RBCs # 0.00 INR 1.9 PT Patient/Control Mix 21.0 D Sodium 140 Potassium 3.3 L Chloride 102 Carbon Dioxide 25 Anion Gap 16.3 H BUN 51 H Creatinine 1.60 H GFR Calculation 31 BUN/Creatinine Ratio 31.00 H Glucose 111 H Calculated Osmolality 293.4 Calcium 9.3 Magnesium 2.2
[2016-09-13] MEDS ORDERED: POTASSIUM CHLORIDE 20 MEQ TABLET PO PRN (08:14)
[2016-09-13] MEDS: PANTOPRAZOLE 40 MG TABLET PO SCH (08:55)
[2016-09-13] MEDS: CIPROFLOXACIN 500 MG TABLET PO SCH ×2 (08:55→20:41)
[2016-09-13] MEDS: ASPIRIN EC 325 MG TABLET PO SCH (08:55)
[2016-09-13] MEDS: ATORVASTATIN 20 MG TABLET PO SCH (08:55)
[2016-09-13] MEDS: METOPROLOL TARTRATE 50 MG TABLET PO SCH ×2 (08:55→20:41)
--- NOTE | 2016-09-13 09:13 | Hospitalist Progress Note ---
Assessment and Plan - Time spent with patient Time spent with patient: Greater than 30 minutes (1) Acute CVA (cerebrovascular accident) Status: Acute Assessment and plan: Echo previously performed. Appreciate evaluation from neurology. Current Visit: Yes (2) Syncope Status: Acute Assessment and plan: Undergone workup. Current Visit: Yes (3) Abnormal cardiac enzyme level Status: Acute Assessment and plan: Cardiology involved, defer to cards. Current Visit: Yes (4) Non-ischemic cardiomyopathy Status: Chronic Assessment and plan: Defer to cardiology. Current Visit: Yes (5) Urinary tract infection Status: Acute Assessment and plan: Continue cipro. Current Visit: Yes (6) Acute on chronic systolic (congestive) heart failure Status: Acute Assessment and plan: Continue diuresis. Current Visit: Yes Hospitalist: Subjective Interval history: In restraints, asks to go home. CT head yesterday showed evolution of infarct. Exam - Constitutional Vitals: Period Temp Pulse Resp BP Sys/Reyes Pulse Ox Last 24 Hr 97.7 F-99.0 F 55-95 15-34 107-173/50-89 95-100 General appearance: no acute distress - Head Head exam: Present: normocephalic, atraumatic - Eye Eye exam: Present: EOMI Pupils: Present: KATHY - ENT ENT exam: Present: normal exam - Neck Neck exam: Present: normal inspection - Respiratory Respiratory exam: Present: clear to auscultation bilaterally. Absent: rhonchi, wheezes - Cardiovascular Cardiovascular exam: Present: regular rate and rhythm. Absent: gallop, rubs, systolic murmur - GI/Abdominal GI/Abdominal exam: Present: normal bowel sounds, soft. Absent: distended, firm , guarding, tenderness, rebound - Extremities Exam Extremities exam: Present: normal inspection. Absent: calf tenderness, edema Results - Labs CBC & BMP: 09/13/16 04:16 09/13/16 04:16 Lab Results: I have reviewed the past 24 hour labs
--- NOTE | 2016-09-13 15:35 | Neurology Progress Note ---
Neurology - PN : Subjective Interval history: Ms. Holguin seems to be doing better. Her speech is better. She is participating somewhat in therapy. Swallowing is good. Exam (Progress Note) - Constitutional Vitals: Period Temp Pulse Resp BP Sys/Reyes Pulse Ox Last 24 Hr 97.1 F-99.0 F 25-95 15-34 107-173/50-89 95-100 Exam: GENERAL: Patient is in no acute distress. NECK: Neck is supple. There is no JVD. No carotid bruits present. No thyroid masses. CVS: First and second heart sounds are normal. There is no S3 present. Regular rate and rhythm. RESPIRATORY: Lungs are clear to auscultation without any rales or rhonchi. ABDOMEN: Soft and non-tender. Bowel sounds are present. There is no hepatosplenomegaly. EXT: There is no palpable edema. Peripheral pulses are present. Skin: No rashes Central Nervous system: General: Alert and awake Speech: Fluent Comprehension: Intact and normal Facial expressions: Normal Cranial Nerves: Pupils are reactive 3 mm . Dolls head +. No facial asymmetry seen. Motor: Bulk and Tone is normal. Strength, moving all 4 extremities Sensory: Can not be assessed Reflexes: 1+ and symmetrical Cerebellar function: Can not be assessed Gait: Can not be assessed Results - Labs CBC & BMP: 09/13/16 04:16 09/13/16 04:16 Assessment and Plan (1) Cerebellar infarct Status: Acute Assessment and plan: Repeat CT head in a.m Neuro checks every 6 Cont ASa Change coumadin to 5 mg po Tues, Thurs & Sat and 2.5 mg on Mon,Wed,Fri & Sun. PT, OT and ST Awaiting TMR placement Current Visit: Yes
[2016-09-13] MEDS ORDERED: WARFARIN 2.5 MG TABLET PO SCH (18:00)
[2016-09-14 04:30] LABS: INR 3.9
[2016-09-14 04:49] LABS: Calcium 8.6 MG/DL (8.5-10.1); Magnesium 2.3 MG/DL (1.8-2.4); Osmolality,Calculated 291.1 MOS/KG (273-304); Potassium 3.6 MMOL/L (3.5-5.1)
--- NOTE | 2016-09-14 08:56 | Neurology Progress Note ---
Neurology - PN : Subjective Interval history: Patient seems to be doing fairly well. No new problems reported. Participating actively in physical therapy. Exam (Progress Note) - Constitutional Vitals: Period Temp Pulse Resp BP Sys/Reyes Pulse Ox Last 24 Hr 97.1 F-98.0 F 25-65 16-23 123-169/48-78 95-100 Exam: GENERAL: Patient is in no acute distress. NECK: Neck is supple. There is no JVD. No carotid bruits present. No thyroid masses. CVS: First and second heart sounds are normal. There is no S3 present. Regular rate and rhythm. RESPIRATORY: Lungs are clear to auscultation without any rales or rhonchi. ABDOMEN: Soft and non-tender. Bowel sounds are present. There is no hepatosplenomegaly. EXT: There is no palpable edema. Peripheral pulses are present. Skin: No rashes Central Nervous system: General: Alert and awake Speech: Fluent Comprehension: Intact and normal Facial expressions: Normal Cranial Nerves: Pupils are reactive 3 mm . Dolls head +. No facial asymmetry seen. Motor: Bulk and Tone is normal. Strength, moving all 4 extremities Sensory: Can not be assessed Reflexes: 1+ and symmetrical Cerebellar function: Can not be assessed Gait: Can not be assessed at this time Results - Labs CBC & BMP: 09/13/16 04:16 09/14/16 04:01 Assessment and Plan (1) Cerebellar infarct Status: Acute Assessment and plan: Repeat CT head in a.m Neuro checks every 6 Cont ASa Change coumadin to 5 mg po Tues, Thurs & Sat and 2.5 mg on Mon,Wed,Fri & Sun. PT, OT and ST For TMR placement today Sign off please call as needed Current Visit: Yes
[2016-09-14] MEDS: ATORVASTATIN 20 MG TABLET PO SCH (09:16)
[2016-09-14] MEDS: CIPROFLOXACIN 500 MG TABLET PO SCH (09:16)
[2016-09-14] MEDS: ASPIRIN EC 325 MG TABLET PO SCH (09:17)
[2016-09-14] MEDS: PANTOPRAZOLE 40 MG TABLET PO SCH (09:18)
[2016-09-14] MEDS: METOPROLOL TARTRATE 50 MG TABLET PO SCH (09:18)
--- NOTE | 2016-09-14 10:08 | Discharge Summary ---
Hospital Course - Hospital Course Hospital Course: Ms. Baez was admitted for evaluation of syncope. CT of her head performed in the ER was unremarkable. Troponins were noted to be elevated and cardiology was consulted. The plan was to perform a left heart cath and consider a biventricular pacemaker for the left bundle branch block however during hospitalization the patient was noted to have an insidious change in mentation to include agitation and poor responsiveness and was transferred to the intensive care unit for observation. Brain MRI was performed which revealed an acute infarction involving the right cerebellum and contralateral small focal lacunar infarction of the left cerebellum. Also a small focal area of infarction of the right brainstem at the marisela level. Urology was consulted and the patient was initiated on warfarin. Of note an echocardiogram was performed which revealed a systolic ejection fraction of 20-25% and moderate concentric left ventricular hypertrophy. Carotid ultrasounds were unremarkable for significant stenosis. As of current the patient is not a candidate for left heart cath or ventricular pacemaker given her acute CVA. She will continue treatments at home and where she has been accepted and will follow up with cardiology as an outpatient. With regard to the patient's urinary tract infection I recommend treatment with ciprofloxacin for another 2 days. - Time spent with patient Time with patient DS: Greater than 30 minutes Diagnosis - Discharge Diagnosis (1) Acute CVA (cerebrovascular accident) Status: Acute (2) Syncope Status: Acute (3) Abnormal cardiac enzyme level Status: Acute (4) Non-ischemic cardiomyopathy Status: Chronic (5) Urinary tract infection Status: Acute (6) Acute on chronic systolic (congestive) heart failure Status: Acute Discharge Plan - Discharge Data Disposition: Disch/Xfer-Ip Rehab Fac Condition at Discharge: Stable Discharge Diet: advance to your usual diet Activity: resume usual activities as tolerated Hygiene: no restrictions - Discharge Medications New Docusate Sodium Cap [Colace Cap] 100 mg PO BID PRN #0 capsule PRN Reason: Constipation Nicotine 21 mg/24 Hr Patch [Nicoderm CQ 21 mg/24 hr Patch] 1 patch TRANSDERM DAILY PRN #0 patch PRN Reason: Nicotine Cravings Warfarin [Coumadin] 2.5 mg PO SUMOWEFR tablet Warfarin [Coumadin] 5 mg PO TUTHSA tablet Ciprofloxacin Tab [Cipro Tab] 500 mg PO Q12HR tablet Metoprolol Tartrate Tab [Lopressor Tab] 50 mg PO BID tablet Continue Atorvastatin [Lipitor] 20 mg PO DAILY Aspirin 325 mg PO DAILY Acetaminophen Tab [Tylenol Tab] 500 mg PO BID Discontinued Lansoprazole [Prevacid] 30 mg PO DAILY Fosinopril [Monopril] 10 mg PO DAILY Carvedilol [Coreg] 25 mg PO DAILY - Follow Up or Referral - Forms/Instructions Exam - Constitutional Vitals: Period Temp Pulse Resp BP Sys/Reyes Pulse Ox Last 24 Hr 97.1 F-98.0 F 25-65 16-23 123-162/48-69 95-100 General appearance: normal weight, no acute distress - Head Head exam: Present: normal inspection, normocephalic, atraumatic - Eye Eye exam: Present: EOMI Pupils: Present: KATHY - ENT ENT exam: Present: normal exam - Neck Neck exam: Present: normal inspection - Respiratory Respiratory exam: Present: clear to auscultation bilaterally. Absent: accessory muscle use, prolonged expiratory phase, wheezes - Cardiovascular Cardiovascular exam: Present: regular rate and rhythm. Absent: irregular rhythm , systolic murmur - GI/Abdominal GI/Abdominal exam: Present: normal bowel sounds. Absent: ascites, distended - Extremities Exam Extremities exam: Present: normal inspection Discharge Results Procedures and tests throughout hospitalization: Pending Orders 09/15/16 04:00 BMP [Basic Metabolic Panel] IN AM BMP w/ Mg [Basic Metabolic Panel w/Mg] IN AM Comp Blood Count Auto Diff IN AM Prothrombin Time INR IN AM 09/16/16 04:00 Prothrombin Time INR IN AM 09/17/16 04:00 Prothrombin Time INR IN AM Labs on day of discharge: Labs from last 24 hours 09/14/16 09/14/16 04:01 04:01 INR 3.9 PT Patient/Control Mix 45.0 D Sodium 142 Potassium 3.6 Chloride 107 Carbon Dioxide 23 Anion Gap 15.6 H BUN 38 H D Creatinine 1.40 H GFR Calculation 37 BUN/Creatinine Ratio 27.00 H Glucose 94 Calculated Osmolality 291.1 Calcium 8.6 Magnesium 2.3 DS: Provider Date of admission: 09/08/16 15:08 Primary care physician: . No PCP Attending physician on admission: Sandi Farnsworth MD Consults: 09/08/16 16:37 Consult to Pharmacy [CONS] Routine Reason for Pharmacy Consult: Adjust Meds Renal Funct 09/09/16 00:26 Consult to Physician [CONS] Routine Comment: chest pain /[id number] troponin Consulting Provider: Consult to Specialist Group: Cardiology When should Consulting Provider be notified: In am 09/11/16 12:06 Consult to Physician [CONS] Routine Comment: CVA Consulting Provider: Consult to Specialist Group: Neurology When should Consulting Provider be notified: Now Date Notified: 09/11/16 Time Notified: 12:15 Consult Notification Comment: Left message with Dr. Hahn's office. 09/12/16 17:11 Consult to Case Mgmt/Social Srvs [CONS] Routine Reason for Case Mgmt/Social Srvs: Swingbed/SNF/Usp Consult Comment: Possible swingbed placement 09/14/16 09/13/16 14:20 Consult to Occupational Therapy [CONS] Routine Reason for Occupational Therapy: Weakness Evaluate and Treat Start Therapy: Today Consult Comment: NEW CVA, EVALUATE FOR SWINGBED Consult to Physical Therapy [CONS] Routine Reason for Physical Therapy: Evaluate and Treat Weakness Start Therapy: Today Consult Comment: NEW CVA, EVALUATE FOR SWINGBED Discharging clinician: Hazel Duncan MD Expected date of discharge: 09/14/16
--- NOTE | 2016-09-14 12:08 | Cardiology Progress Note ---
<Ida Kemp E - Last Filed: 09/14/16 12:04> Assessment and Plan - Time spent with patient Time spent with patient: Greater than 30 minutes (1) Hypertension Status: Chronic Assessment and plan: See plan of care listed below (2) Dyslipidemia Status: Chronic Assessment and plan: See plan of care listed below (3) Tobacco abuse Status: Chronic Assessment and plan: See plan of care listed below (4) Urinary tract infection Status: Acute Assessment and plan: See plan of care listed below (5) Non-ischemic cardiomyopathy Status: Chronic Assessment and plan: See plan of care listed below (6) Left bundle branch block Status: Chronic Assessment and plan: See plan of care listed below (7) Abnormal cardiac enzyme level Status: Resolved Assessment and plan: See plan of care listed below (8) Acute CVA (cerebrovascular accident) Status: Acute Assessment and plan: See plan of care listed below (9) Hypokalemia Status: Resolved Assessment and plan: See plan of care listed below (10) Bradycardia Status: Acute Assessment and plan: See plan of care listed below Cardiology - PN: Subj Interval history: [employer]CHO[employer] 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 GOLDBERG SUMMARY: Many years ago, patient was diagnosed with severe nonischemic cardiomyopathy and had been followed by Dr. Santa. She underwent cardiac catheterization many years ago with Dr. Rivas which did not reveal significant obstructive coronary artery disease. History of hypertension, dyslipidemia, congestive heart failure, COPD (long-standing history of tobaccoism), ulcers and arthritis. September 08, 2016, patient was brought to the emergency department at [facility] after experiencing a fall. Troponins were mildly elevated as was her proBNP (3483.) Echocardiogram reveals EF 20-25% , mild to moderate mitral regurgitation, moderate concentric left ventricular hypertrophy. Patient was being considered for cardiac catheterization when she became difficult to arouse. Yesterday, she underwent MRI of the brain which revealed acute infarction of the right cerebellum and a fairly large area of infarction in the contralateral left cerebellum, small focal area infarction in the right brainstem. Warfarin was initiated Sunday by Dr. Hahn. DAY , SEPTEMBER 14, 2016: Patient was transferred to telemetry overnight. She wakes and tells me she is feeling well. Beta-declan was increased yesterday. This morning, after receiving her oral dose of metoprolol, she has had sinus bradycardia in the 30s. She wakes in denies chest pain, heaviness or tightness. She was scheduled for discharge and transferred to rehabilitation today. I have held additional melinda blocking agents and will continue to monitor her on telemetry. Will add hydralazine 25 mg orally 3 times daily mg orally daily, isosorbide mononitrate 30 mg orally daily to her medication regimen. We are avoiding DAQUAN inhibitors due to fear of worsening her renal insufficiency. ASSESSMENT/PLAN: 1. ACUTE CVA - appreciate neurology's input. Improving. On warfarin and aspirin. 2. NICM (EF 20-25%) - increasing beta-blockade. Avoiding DAQUAN inhibitors due to worsening renal insufficiency 3. HYPERTENSION - adjusting medications for better control today 4. DYSLIPIDEMIA - continue lipid-lowering agent 5. UTI - has been treated 6. LBBB - chronic and stable 7. ACUTE RENAL INSUFFICIENCY, STAGE III - creatinine has improved overnight, 1.4 this morning. Defer to attending for further management. 8. TOBACCOISM - continue with NicoDerm patch 9. ELEVATED TROPONIN - may be related to her acute CVA. The troponins have been flat. At this point, she denies having chest pain, heaviness or tightness. She is not a candidate for heart catheterization until her multiple comorbidities have improved. 10. HYPOKALEMIA -3.6 this morning. Will need close monitoring while at rehab as she may need routine replacement. 11. BRADYCARDIA - while taking betablocker. Stopping melinda blocking agents. Monitor telemetry. Suspect this is transient due to recent administration of betablocker and hopefully, this will improve soon. Exam (Progress Note) - Constitutional Vitals: Period Temp Pulse Resp BP Sys/Reyes Pulse Ox Last 24 Hr 97.5 F-98.0 F 54-65 16-20 123-142/48-69 95-100 Exam: General: [Groggy but wakes and follows commands appropriately. Pleasant and cooperative HEENT: [normocephalic, atraumatic. Mucous membranes moist. No jaundice noted. Conjunctiva moist and clear, sclerae anicteric] Neck: No JVD/HJR, no thyromegaly or lymphadenopathy noted. No carotid bruit appreciated Cardiac: [Bradycardic rate and rhythm.] [II/ AIMEE heard best at 2ICS right. Lungs: [Clear to auscultation without accessory muscle use to assist the respiratory pattern.] Not requiring oxygen Abdomen: Soft, bowel sounds normoactive. Nontender and nondistended. No abdominal bruit or thrill noted. No masses noted. Musculoskeletal: No fluid collection. Decreased range of motion is noted. Extremities: No clubbing, cyanosis noted. [ No edema noted.] Upper extremity pulses 2+. Lower extremity pulses 2+. Capillary refill less than 3 seconds. Skin: No unusual lesions or rashes. No skin breakdown appreciated. Neuro: Awake, alert and oriented to person. Moves all extremities without hemiparesis or paralysis. No essential tremor is appreciated. Result/EKG - Labs CBC & BMP: 09/13/16 04:16 09/14/16 04:01 Lab Results: I have reviewed the past 24 hour labs Labs: Laboratory Results - last 24 hr 09/14/16 09/14/16 04:01 04:01 INR 3.9 PT Patient/Control Mix 45.0 D Sodium 142 Potassium 3.6 Chloride 107 Carbon Dioxide 23 Anion Gap 15.6 H BUN 38 H D Creatinine 1.40 H GFR Calculation 37 BUN/Creatinine Ratio 27.00 H Glucose 94 Calculated Osmolality 291.1 Calcium 8.6 Magnesium 2.3 - EKG EKG results: interpreted by me EKG shows: bradycardia <Tate Rivas - Last Filed: 09/15/16 07:00> Assessment and Plan (1) Acute CVA (cerebrovascular accident) Status: Acute (2) Urinary tract infection Status: Acute (3) Non-ischemic cardiomyopathy Status: Chronic (4) Left bundle branch block Status: Chronic (5) Abnormal cardiac enzyme level Status: Resolved Cardiology - PN: Subj Interval history: The patient was personally interviewed and examined and chart reviewed. Discussed case with Ida Kemp CREDIT FR[employer] OFFICE DEVELOPER. I agree with the history as well as exam and assessment. In summation NDV we need to monitor this patient's heart rates. She goes to rehabilitation and will need to monitor heart rate and blood pressures and adjustments in her medications may certainly be indicated. We're available for any consultation this regard if indeed she is discharged. Exam (Progress Note) - Constitutional Vitals: Period Temp Pulse Resp BP Sys/Reyes Pulse Ox Last 24 Hr 97.5 F-98.6 F 52-55 18-18 140-145/69-73 96-97 Result/EKG - Labs CBC & BMP: 09/13/16 04:16 09/14/16 04:01
[2016-09-14 12:47] VITALS: BP 145/73
[2016-09-14] MEDS ORDERED: hydrALAZINE 25 MG TABLET PO SCH (15:00)
[2016-09-14] MEDS ORDERED: WARFARIN 5 MG TABLET PO SCH (18:00)
[2016-09-15] MEDS ORDERED: ISOSORBIDE MONONITRATE 30 MG TABLET PO SCH (09:00)
== END 2016-09-14 14:37 | DRG 64 ==
LOC: N.ED 12:28 → SUATTDRO 15:08 → N.EDINP 15:08 → N.TELEN 16:20 → N.CC 09-10 17:03 → N.TELEN 09-13 14:20
PROVIDERS: ADMIT Internal Medicine; ATTEND Internal Medicine

== ENCOUNTER 2016-11-11 08:53 | Inpatient (IN) ==
[2016-11-11] MEDS ORDERED: ASPIRIN 325 MG TABLET PO STA (09:21)
[2016-11-11] MEDS ORDERED: LEVOFLOXACIN INJ 500 MG in PREMIX 1 EACH IV STA (09:21)
[2016-11-11] MEDS ORDERED: ASPIRIN 325 MG TABLET ONE (09:26)
[2016-11-11] MEDS ORDERED: LEVOFLOXACIN INJ 100 ML IV ONE (09:26)
--- NOTE | 2016-11-11 09:26 | EKG Report ---
Stationary ECG Study [facility] ER Test Date: 11/11/2016 9:06:26 AM Pat Name: JAYLYN SCHREIBER Department: Room: Gender: F Doorshaker: BABAR Araujo : 1940 Requested by: Hermilo Doe Order Number: [id number] Reading MD: HELDER VEGA Intervals Prospect Rate: 118 P: 999 MT: 0 QRS: -26 QRSD: 174 T: 147 QT: 306 QTc: 376 Interpretive Statements ATRIAL FIBRILLATION WITH RAPID VENTRICULAR RESPONSE WITH ABERRANT CONDUCTION OR VENTRICULAR PREMATURE COMPLEXES LEFT BUNDLE BRANCH BLOCK Electronically Signed On 11-12-16 08:03:28 CDT by HELDER VEGA [email or web address]
[2016-11-11 09:31] LABS: Basophils % 0.2 % (0.0-0.8); Eosinophils # 0.1 10*3/uL (0.0-0.87); Eosinophils % 0.9 % (0.00-10.9); Hematocrit 30.3 VOL% (35.7-47.0); Hemoglobin 9.6 GM/DL (12.0-16.0); Immature Granulocytes % 0.3 %; Immature Granulocytes Absolute 0.04 #; Lymphocytes # 1.6 10*3/uL (1.4-4.0); Lymphocytes % 12.7 % (21.3-54.2); Mean Corpuscular HGB Conc 31.7 GM/DL (32-36); Mean Corpuscular Hemoglobin 27 PG (27-34); Mean Corpuscular Volume 85.4 FL (87-102); Mean Platelet Volume 13.4 FL (9.6-12.0); Monocytes # 1.2 10*3/uL (0.11-0.8); Monocytes % 9.7 % (1.7-12.7); Neutrophils # 9.6 10*3/uL (1.4-7.4); Neutrophils % 76.2 % (38.7-73.9); Platelet Count 119 T/CUMM (130-400); Red Blood Count 3.55 MC/CUMM (3.8-5.5); Red Cell Distribution Width 16.4 % (9.3-17.3); White Blood Count 12.6 T/CUMM (4-12)
[2016-11-11] MEDS ORDERED: DILTIAZEM 50 MG/10 ML VIAL IV STA (09:31)
--- NOTE | 2016-11-11 09:37 | XRay Report ---
XR chest 1V portable Indication: Shortness of breath. Chest one view: Comparison 10/12/2016. Cardiomegaly is worse than previous, with increased interstitial prominence of the lungs, likely edema. Additionally, lung bases are more hazy and indistinct. Scattered calcified granulomata calcified atheromatous disease appears stable. Impression: Mild CHF decompensation. PROCEDURE INTERPRETED AT [facility] DEPARTMENT OF RADIOLOGY Final Report Signed by: Tate Ji M.D.
[2016-11-11] MEDS ORDERED: DILTIAZEM 50 MG/10 ML VIAL IV ONE ×2 (09:43→11:50)
[2016-11-11] MEDS ORDERED: FUROSEMIDE 40 MG/4 ML VIAL IV STA (09:59)
[2016-11-11 10:27] LABS: Bilirubin,Total 0.8 MG/DL (0.2-1.0); Calcium 8.9 MG/DL (8.5-10.1); Osmolality,Calculated 283.3 MOS/KG (273-304); Potassium 3.7 MMOL/L (3.5-5.1); Total Protein 6.2 G/DL (6.4-8.3)
[2016-11-11 10:28] LABS: Troponin I Only 0.259 NG/ML (0.00-0.045)
[2016-11-11] MEDS ORDERED: FUROSEMIDE 40 MG/4 ML VIAL ONE (10:56)
[2016-11-11] MEDS ORDERED: SODIUM CHLORIDE 0.9% 1,000 ML IV STA (11:04)
[2016-11-11] MEDS ORDERED: DILTIAZEM 100 MG VIAL.ADD IV ONE (11:06)
[2016-11-11] MEDS ORDERED: SODIUM CHLORIDE 0.9% 100 ML IV ONE (11:07)
--- NOTE | 2016-11-11 11:26 | Emergency Department Note ---
Kiesha Bal Mantricia, am scribing for, and in the presence of, Silvino Alfredo MD 09:23. Juni Bal Doug C, MD, personally performed the services described in this documentation, ascribed by Nelli Pop in my presence, and it is both accurate and complete 950 . Arrival - Arrival Chief Complaint: Shortness of Breath Stated Complaint: Resp Distress [facility] ED Nursing Triage Note: Pt sent from [facility] for c/o Resp distress since yesterday with abd pain. O2 Sat in the 80's at [facility]. Mode of Arrival: Stretcher Time Seen by Provider: 11/11/16 09:21 - History of Present Illness HPI Narrative: Patient is a 75-year-old white female brought from care home with complaint of chest pain and upper abdominal pain. Patient states this started sometime this morning while she was "at work". Patient states pain is both sharp and dull but not associated with any radiation. Patient states she did have some sweating but she denies any nausea, vomiting or diarrhea. Patient states she does have some shortness of breath which started after breakfast this morning. She tells me she has a remote history of heart disease she certainly has COPD. She has not had any fever, chills or pleuritic chest pain. Patient states she has had a increased cough with sputum production. Allergies/Adverse Reactions: Allergies Allergy/AdvReac Type Severity Reaction Status Date / Time Sulfa (Sulfonamide Allergy RASH Verified 10/18/16 19:09 Antibiotics) Home Medications: Home Medications Medication Instructions Recorded Confirmed Type Acetaminophen Tab [Tylenol Tab] 500 mg PO BID 09/08/16 10/18/16 History Aspirin 325 mg PO DAILY 09/08/16 10/18/16 History Atorvastatin [Lipitor] 20 mg PO DAILY 09/08/16 10/18/16 History Docusate Sodium Cap [Colace Cap] 100 mg PO BID PRN #0 capsule 09/14/16 10/18/16 Rx Nicotine 21 mg/24 Hr Patch 1 patch TRANSDERM DAILY PRN #0 09/14/16 10/18/16 Rx [Nicoderm CQ 21 mg/24 hr Patch] patch QUEtiapine [SEROquel] 12.5 mg PO BEDTIME #30 tablet 10/12/16 10/18/16 Rx ALPRAZolam [Xanax] 0.25 mg PO BID PRN 10/18/16 10/18/16 History Escitalopram [Lexapro] 10 mg PO 0900 10/18/16 10/18/16 History Furosemide Tab [Lasix Tab] 40 mg PO 0900 10/18/16 10/18/16 History Isosorbide Mononitrate [Imdur] 15 mg PO 0900 10/18/16 10/18/16 History Potassium Chloride Cap/Tab [K Dur] 20 meq PO 0900 10/18/16 10/18/16 History Tramadol HCl [Tramadol Tab] 50 mg PO Q4H PRN 10/18/16 10/18/16 History Warfarin [Coumadin] 2 mg PO DAILY@1800 10/18/16 10/18/16 History Review of System - Review of System 12 point system: reviewed and no additional remarkable complaints except as stated - Review of System Constitutional: Present: diaphoresis. Absent: chills Respiratory: Present: cough, respiratory distress Cardiovascular: Present: chest pain (sharp and dull), dyspnea on exertion, other (SOB) Gastrointestinal: Present: abdominal pain. Absent: nausea, vomiting Genitourinary female: Absent: abnormal menses Musculoskeletal: Absent: back pain Neurological: Absent: headache, numbness, paresthesias Psychiatric: Absent: anxiety, depression Endocrine: Absent: fatigue Hematological/Lymphatic: Absent: easy bleeding, easy bruising Medical,Surgical,& Family Hx - Medical History Cardio: History of: CHF, CAD, Hypertension, [place] Psychological: History of: Anxiety Disorders Neurology: History of: Cerebrovascular Accident (Right and Left Cerebellar acute infarction) HEENT: History of: Eye Problem (Cataracts with removal.) Endocrine: History of: Dyslipidemia Respiratory: History of: COPD (1/2 pack a day smoker.) Genitourinary: History of: Recurring Urinary Tract Infections Musculoskeletal: No history of: Amputation - Surgical History Cardiac Surgeries: Patient Denies: Femoral-Popliteal Bypass Graft, Cardiac Catheterization, Cardiac Surgery, Carotid Endarterectomy, Internal Defibrillator, Vascular Access Devices Thoracic Surgeries: Patient denies;: Kidney (Renal Surgery), Lithotripsy, Nephrectomy, Organ Transplant, Lobectomy HEENT Surgeries: Surgical HX of: Tonsilectomy & Adenoidectomy Patient denies: Carotid Endarterectomy Abdominal Surgeries: Patient denies: Splenectomy Reproductive Surgeries: Surgical HX of;: Gynecologic Surgery, Hysterectomy Patient denies;: Cystoscopy, Genitourinary Surgery - Family History Family History: Reports;: Family Heart Disease, Family Hypertension - Social History Smoking Status: Former smoker Exam Vital Signs: Vital Signs Temperature 99.9 F H 11/11/16 09:17 Pulse Rate 111 H 11/11/16 10:45 Respiratory Rate 26 H 11/11/16 10:45 Blood Pressure 134/97 11/11/16 10:45 O2 Sat by Pulse Oximetry 97 11/11/16 10:45 - General General appearance: alert, in no apparent distress - Head Head exam: Present: atraumatic, normocephalic, normal inspection - Eye Eye exam: Present: normal appearance, PERRL, EOMI - ENT ENT exam: Present: normal exam, normal oropharynx, mucous membranes moist - Neck Neck exam: Present: normal inspection, full ROM, trachea midline. Absent: tenderness - Chest Chest inspection: Present: normal inspection, symmetric chest wall rise. Absent : tenderness - Respiratory Respiratory exam: Present: rales (Bibasilar rales posteriorly), other (Tachypnea ). Absent: normal lung sounds bilaterally - Cardiovascular Cardiovascular exam: Present: tachycardia, irregular rhythm, normal heart sounds. Absent: regular rate - Abdominal Exam Abdominal exam: Present: soft, tenderness (epigastric TTP), normal bowel sounds. Absent: distention, guarding, rebound - Extremities Exam Extremities exam: Present: normal inspection, full ROM, normal capillary refill. Absent: tenderness, pedal edema - Back Exam Back exam: Present: normal inspection, full ROM. Absent: tenderness - Neurological Exam Neurological exam: Present: alert, oriented X3, CN II-XII intact - Psychiatric Psychiatric exam: Present: normal affect, normal mood - Skin Skin exam: Present: warm, dry, intact, normal color Course Course Narrative: Patient's clinical presentation, laboratory and radiograph findings were discussed with Zayra who is covering the hospitalist service. She will arrange for patient to be seen and admitted. Results - Labs CBC & BMP: 11/11/16 08:59 11/11/16 08:59 Lab Results: I have reviewed the patients labs - EKG EKG shows: tachycardia (Atrial fibrillation with rapid ventricular response. Heart rate of 140 bpm on arrival) - Impressions Left bundle branch block - Diagnostic Findings Procedure: Chest x-ray: report reviewed by me (Mild CHF decomposition. ) Disposition Clinical Impression: Acute exacerbation of CHF (congestive heart failure), Atrial fibrillation with rapid ventricular response Case discussed with: patient Disposition: Still a Patient Condition: Guarded Time of Disposition: 11:25
[2016-11-11] MEDS ORDERED: DILTIAZEM INJ 100 MG in SODIUM CHLORIDE 0.9% 100 ML IV SCH (11:30)
[2016-11-11] MEDS ORDERED: ALBUTEROL 2.5 MG/3 ML NEB RESP TX PRN (12:20)
[2016-11-11] MEDS ORDERED: ALBUTEROL/IPRATROPIUM 3 ML NEB RESP TX PRN ×2 (12:20→15:52)
[2016-11-11] MEDS ORDERED: ONDANSETRON 4 MG/2 ML VIAL IV PRN (12:20)
[2016-11-11] MEDS ORDERED: MAGNESIUM SULF RIDER 4 GM in PREMIX 1 EACH IV PRN (12:20)
[2016-11-11] MEDS ORDERED: MAGNESIUM SULF RIDER 2 GM in PREMIX 1 EACH IV PRN (12:20)
--- NOTE | 2016-11-11 12:36 | Hospitalist History & Physical ---
Assessment and Plan - Time spent with patient Time spent with patient: Greater than 30 minutes (1) Abdominal pain Status: Acute Assessment and plan: Ms. Baez is a 75-year-old white female admitted by the hospitalist service for acute congestive heart failure, COPD exacerbation and A. fib with RVR. Patient looks acutely ill and was admitted to the ICU under Dr. Carballo's service. Dr. Carballo has seen and examined patient and further recommendations to follow. afib w RVR--She has been given a bolus of Cardizem and is on Cardizem infusion. We will continue to monitor her on social media assistant and switch her over to p.o. when rate is controlled. Acute CHF exacerbation--patient does have pulmonary edema per chest x-ray with elevated BNP. This is most likely sequela from her A. fib with RVR. She will be diuresed and will continue to monitor. Will restart her heart medicines once medicines have been reconciled. COPD exacerbation--she has been started on antibiotics, breathing treatments, and IV steroids. Abdominal pain--this is most likely irritation of the diaphragm due to her COPD/ CHF/A. fib. Her abdomen is soft and she has good bowel sounds. We will continue to monitor Dyslipidemia--we will restart her home medicines once they have been reconciled. Chronic anticoagulation/CVA--patient had already been started on Coumadin by Dr. Hahn for previous stroke in August. Her INR is therapeutic at 2.5. She will need to continue some form of anticoagulation upon discharge. Hypertension--we will restart her cardiac meds once they have been reconciled. They are stable on admission at 138/84. We will continue to monitor her blood pressures Elevated troponins--patient had elevated troponins upon her admission in August. She was seen by Dr. Rivas from cardiology and left heart cath was planned but postponed due to her acute CVA. Troponin is 0.259 today. Patient has no complaints of chest pain Current Visit: Yes (2) Chronic anticoagulation Status: Acute Current Visit: Yes (3) Abnormal cardiac enzyme level Status: Resolved Current Visit: No (4) Acute on chronic systolic (congestive) heart failure Status: Acute Current Visit: No (5) Cerebellar infarct Status: Acute Current Visit: No (6) Hypertension Status: Chronic Current Visit: No (7) Dyslipidemia Status: Chronic Current Visit: No (8) Atrial fibrillation with rapid ventricular response Status: Acute Current Visit: Yes History of Present Illness Chief complaint: Shortness of breath History of present illness: Ms. Baez is a 75 year old white female with history of hypertension, CVA, CHF, RI, COPD, arthritis, previous tobacco abuse, previous alcohol abuse presenting to the ED with 1 day history of increasing shortness of breath. Patient states she was doing fine yesterday. She is a resident at [facility]. She states last night she started to become short of breath and increased this morning to where she has a feeling of impending doom. She is tachypneic with respirations in the 20s and has conversational dyspnea. She has bilateral rails to auscultation. She has a low-grade fever and is found to be in A. fib with RVR with rate at 124. Cardizem infusion has been initiated in the ED. She has a mildly elevated white count of 12.6, troponin elevated at 0.259 (she has chronically elevated troponins looking at previous admissions), BNP 4731, d- dimer of 1.2, chest x-ray showing mild CHF decompensation. Her last admission was in August of this year when she was admitted for evaluation of syncope. She had elevated troponins at that time and heart cath was considered along with pacemaker but then she had an acute CVA. They stated they would reevaluate this when she recovers from her CVA. Neurology did start her on warfarin at that time. Her INR is pending at this time. Her echo at that time revealed a systolic ejection fraction of 20-25% and LV hypertrophy. Patient denies headache, chest pain, dysphasia, constipation or diarrhea, or lower extremity edema. She is complaining of some left upper quadrant abdominal pain with palpation. Patient's case was discussed with Dr. Alfredo the ED physician and Dr. Carballo the admitting hospitalist, and it was agreed patient would be admitted for evaluation and treatment Home Medications Medication Instructions Recorded Confirmed Type Acetaminophen Tab [Tylenol Tab] 500 mg PO BID 09/08/16 10/18/16 History Aspirin 325 mg PO DAILY 09/08/16 10/18/16 History Atorvastatin [Lipitor] 20 mg PO DAILY 09/08/16 10/18/16 History Docusate Sodium Cap [Colace Cap] 100 mg PO BID PRN #0 capsule 09/14/16 10/18/16 Rx Nicotine 21 mg/24 Hr Patch 1 patch TRANSDERM DAILY PRN #0 09/14/16 10/18/16 Rx [Nicoderm CQ 21 mg/24 hr Patch] patch QUEtiapine [SEROquel] 12.5 mg PO BEDTIME #30 tablet 10/12/16 10/18/16 Rx ALPRAZolam [Xanax] 0.25 mg PO BID PRN 10/18/16 10/18/16 History Escitalopram [Lexapro] 10 mg PO 0900 10/18/16 10/18/16 History Furosemide Tab [Lasix Tab] 40 mg PO 0900 10/18/16 10/18/16 History Isosorbide Mononitrate [Imdur] 15 mg PO 0900 10/18/16 10/18/16 History Potassium Chloride Cap/Tab [K Dur] 20 meq PO 0900 10/18/16 10/18/16 History Tramadol HCl [Tramadol Tab] 50 mg PO Q4H PRN 10/18/16 10/18/16 History Warfarin [Coumadin] 2 mg PO DAILY@1800 10/18/16 10/18/16 History Allergies Allergy/AdvReac Type Severity Reaction Status Date / Time Sulfa (Sulfonamide Allergy RASH Verified 10/18/16 19:09 Antibiotics) Medical,Surgical,& Family Hx - Medical History Cardio: History of: CHF, CAD, Hypertension, [place] Psychological: History of: Anxiety Disorders Neurology: History of: Cerebrovascular Accident (Right and Left Cerebellar acute infarction) HEENT: History of: Eye Problem (Cataracts with removal.) Endocrine: History of: Dyslipidemia Respiratory: History of: COPD (1/2 pack a day smoker.) Genitourinary: History of: Recurring Urinary Tract Infections Musculoskeletal: No history of: Amputation - Surgical History Cardiac Surgeries: Patient Denies: Femoral-Popliteal Bypass Graft, Cardiac Catheterization, Cardiac Surgery, Carotid Endarterectomy, Internal Defibrillator, Vascular Access Devices Thoracic Surgeries: Patient denies;: Kidney (Renal Surgery), Lithotripsy, Nephrectomy, Organ Transplant, Lobectomy HEENT Surgeries: Surgical HX of: Tonsilectomy & Adenoidectomy Patient denies: Carotid Endarterectomy Abdominal Surgeries: Patient denies: Splenectomy Reproductive Surgeries: Surgical HX of;: Gynecologic Surgery, Hysterectomy Patient denies;: Cystoscopy, Genitourinary Surgery - Family History Family History: Reports;: Family Heart Disease, Family Hypertension - Social History Smoking Status: Former smoker Frequency of Alcohol Use: Occasionally Type of Drug Use: None Marital Status: Single Lives With:: [place] Functional capacity: uses cane/walker Review of systems: A complete 10 system review of systems was obtained and pertinent positives and negatives per HPI Exam - Constitutional Vitals: Period Temp Pulse Resp BP Sys/Reyes Pulse Ox Last 24 Hr 98.6 F-99.9 F 110-130 19-28 118-149/81-97 89-98 Exam: Constitutional System: Moderate distress. Mild tremulousness. Head: Normocephalic, atraumatic. Ears, Nose and Throat System: No evidence of Otitis or Mastoiditis. No epistaxis or discharge Eyes System: Pupils equal, round, and reactive. Extraocular muscles intact. Neck: Supple, without adenopathy, No jugular venous distention. No thyromegaly, neck mass, or prior surgery apparent. Respiratory System: Chest bilateral rails to auscultation. Cardiovascular System: Heart with irregularly irregular rate and rhythm. No murmur. GI System: Abdomen soft, mildly tender in left upper quadrant. Normo active bowel sounds present. Musculoskeletal System: limbs with no pedal edema. Full distal pulses. Neurological System: No discernable sensory deficit. No aphasia Psychiatric System: Conversation is rational Results - Labs CBC & BMP: 11/11/16 08:59 11/11/16 08:59 Lab Results: I have reviewed the past 24 hour labs - EKG EKG shows: atrial fibrillation - Diagnostic Findings Procedure: Chest x-ray: report reviewed by me (Mild CHF decompensation)
[2016-11-11 12:38] LABS: INR 2.5
[2016-11-11 12:45] LABS: PT Patient Result 28.1 SECS
[2016-11-11] MEDS: ENOXAPARIN 40 MG/0.4 ML SYRINGE SUBCUT SCH (14:31)
[2016-11-11] MEDS: cefTRIAXone 1,000 MG in SODIUM CHLORIDE 0.9% 100 ML IV SCH (14:32)
[2016-11-11] MEDS: methylPREDNISolone SOD SUC 40 MG/1 ML VIAL IV SCH ×2 (14:32→21:11)
--- NOTE | 2016-11-11 15:26 | ECHO Report ---
Xenia Baez Exam Date: 11/11/2016 14:12 Referring Physician: Technologist: Leni Stone RDCS Age: 75 Ht (in): 65 Wt (lb): 155 Gender: F Exam Location: [facility] Echo Indications: Atrial fibrillation, Chest pain, unspecified, Shortness of breath, Essential (primary) hypertension, Cough, Respiratory distress, COPD, hx CVA, CAD with previous RI, Elevated troponins, Chronic anticoagulation, Acute on chronic systolic (congestive) heart failure BP: 149 / 81 HR: 96 Rhythm: Atrial fibrillation Technical Quality: Fair IMPRESSIONS 1. Left ventricle is moderately dilated with moderate concentric left ventricular hypertrophy and ejection fraction 15%. 2. Right ventricle is mildly dilated. 3. Right atrium and left atrium are moderately dilated. 4. Mitral valve slightly thickened with moderate mitral annular calcification. Mild possibly moderate mitral valve regurgitation present. 5. Aortic valve the tricuspid structure sclerotic with mild possibly moderate insufficiency. It worse mild aortic valve stenosis. 6. Mild tricuspid valve regurgitation. 7. Severely elevated right-sided pressures are estimated PA P of 64 mmHg. MEASUREMENTS (Male / Female) Normal Values 2D ECHO LV Diastolic Diameter PLAX 6.4 cm 4.2 - 5.9 / 3.9 - 5.3 cm LV Systolic Diameter PLAX 5.2 cm LV Fractional Shortening PLAX 19.2 % IVS Diastolic Thickness 1.5 cm 0.6 - 1.0 / 0.6 - 0.9 cm LVPW Diastolic Thickness 1.5 cm 0.6 - 1.0 / 0.6 - 0.9 cm RV Internal Dim ED PLAX 3.9 cm Aortic Root Diameter 3.0 cm LA Systolic Diameter LX 5.7 cm 3.0 - 4.0 / 2.7 - 3.8 cm DOPPLER TR Peak Velocity 366.0 cm/s TR Peak Gradient 53.6 mmHg FINDINGS Left Ventricle Moderately increased left ventricular cavity size. Moderate left ventricular hypertrophy. Left ventricular ejection fraction is estimated at 10-15 %. Right Ventricle Mildly increased right ventricular size. Right Atrium Moderately increased right atrial size. Left Atrium Moderately increased left atrial size. Mitral Valve Mildly thickened mitral valve. Moderate mitral annular calcification. Mild-moderate mitral valve regurgitation. Aortic Valve Mild aortic valve calcification. [id number] aortic valve regurgitation. Tricuspid Valve Morphologically normal tricuspid valve. Mild tricuspid valve regurgitation. Tricuspid regurgitation velocities suggest a PAP of 64 mmHg. Pulmonic Valve Morphologically normal pulmonic valve. Trace pulmonary valve regurgitation. Pericardium Normal pericardium without effusion. Aorta Normal ascending aorta dimension. Tate Rivas MD (Electronically Signed) Final Date: 11 November 2016 15:24
[2016-11-11] MEDS ORDERED: guaiFENesin 200 MG/10 ML UDCUP PO PRN (15:52)
[2016-11-11] MEDS ORDERED: DOCUSATE SODIUM 100 MG CAPSULE PO PRN (15:52)
[2016-11-11] MEDS ORDERED: traMADol 50 MG TABLET PO PRN (15:52)
[2016-11-11] MEDS: AZITHROMYCIN INJ 500 MG in SODIUM CHLORIDE 0.9% 250 ML IV SCH (16:13)
[2016-11-11] MEDS: FUROSEMIDE 40 MG/4 ML VIAL IV SCH (16:14)
[2016-11-11] MEDS: WARFARIN 2.5 MG TABLET PO SCH (19:55)
[2016-11-11] MEDS: QUEtiapine 25 MG TABLET PO SCH (21:11)
[2016-11-11] MEDS: DONEPEZIL 5 MG TABLET PO SCH (21:12)
[2016-11-11] MEDS: ACETAMINOPHEN 500 MG TABLET PO SCH (21:12)
[2016-11-11] MEDS: ALPRAZolam 0.25 MG TABLET PO SCH (21:13)
[2016-11-11] MEDS: FLUTICASONE/SALMETEROL 250-50 DISKUS 14 DOSE INH SCH (21:14)
[2016-11-11] MEDS: MELATONIN 3 MG TABLET PO PRN (23:06)
[2016-11-12 06:03] LABS: Hematocrit 28.6 VOL% (35.7-47.0); Hemoglobin 9.3 GM/DL (12.0-16.0); Immature Granulocytes % 0.2 %; Immature Granulocytes Absolute 0.01 #; Lymphocytes # 0.8 10*3/uL (1.4-4.0); Lymphocytes % 17.7 % (21.3-54.2); Mean Corpuscular HGB Conc 32.5 GM/DL (32-36); Mean Corpuscular Hemoglobin 27 PG (27-34); Mean Corpuscular Volume 84.4 FL (87-102); Mean Platelet Volume 12.2 FL (9.6-12.0); Monocytes # 0.1 10*3/uL (0.11-0.8); Monocytes % 2.5 % (1.7-12.7); Neutrophils # 3.5 10*3/uL (1.4-7.4); Neutrophils % 79.6 % (38.7-73.9); Platelet Count 142 T/CUMM (130-400); Red Blood Count 3.39 MC/CUMM (3.8-5.5); White Blood Count 4.4 T/CUMM (4-12)
[2016-11-12] MEDS: methylPREDNISolone SOD SUC 40 MG/1 ML VIAL IV SCH (06:11)
[2016-11-12 06:42] LABS: Albumin 2.7 G/DL (3.4-5.0); Bilirubin,Total 0.6 MG/DL (0.2-1.0); Calcium 8.9 MG/DL (8.5-10.1); Magnesium 2.1 MG/DL (1.8-2.4); Osmolality,Calculated 285.4 MOS/KG (273-304); Total Protein 5.9 G/DL (6.4-8.3)
[2016-11-12 06:43] LABS: Potassium 2.5 MMOL/L (3.5-5.1); Troponin I Only 0.284 NG/ML (0.00-0.045)
[2016-11-12] MEDS ORDERED: POTASSIUM CHLORIDE 20 MEQ TABLET PO ONE ×2 (07:12→21:00)
--- NOTE | 2016-11-12 07:33 | XRay Report ---
XR chest 1V portable Indication: Shortness of breath. Chest one view: Since yesterday, significant cardiomegaly, central pulmonary vascular congestion and diffuse presumed pulmonary edema are relatively stable. Lung bases are much more obscured than previous with loss of definition of the diaphragm. Impression: Stable CHF. Progressive bibasilar atelectasis or pneumonia. PROCEDURE INTERPRETED AT [facility] DEPARTMENT OF RADIOLOGY Final Report Signed by: Tate Ji M.D.
[2016-11-12] MEDS: FUROSEMIDE 40 MG/4 ML VIAL IV SCH ×2 (08:09→15:35)
[2016-11-12] MEDS ORDERED: ASPIRIN 325 MG TABLET PO SCH (09:00)
[2016-11-12] MEDS: MULTIVITAMIN (CENTRUM) TABLET PO SCH (09:21)
[2016-11-12] MEDS: POTASSIUM CHLORIDE 20 MEQ TABLET PO SCH (09:21)
[2016-11-12] MEDS: ASPIRIN CHEW 81 MG TABLET PO SCH (09:21)
[2016-11-12] MEDS: ISOSORBIDE MONONITRATE 30 MG TABLET PO SCH (09:21)
[2016-11-12] MEDS: ESCITALOPRAM 10 MG TABLET PO SCH (09:22)
[2016-11-12] MEDS: ATORVASTATIN 20 MG TABLET PO SCH (09:22)
[2016-11-12] MEDS: ACETAMINOPHEN 500 MG TABLET PO SCH ×2 (09:22→21:08)
[2016-11-12] MEDS: MEGESTROL 400 MG/10 ML UDCUP PO SCH (09:22)
[2016-11-12] MEDS: metOLazone 5 MG TABLET PO SCH (09:22)
[2016-11-12] MEDS: ALPRAZolam 0.25 MG TABLET PO SCH ×3 (09:22→21:11)
[2016-11-12] MEDS: FLUTICASONE/SALMETEROL 250-50 DISKUS 14 DOSE INH SCH ×2 (09:30→21:29)
--- NOTE | 2016-11-12 09:54 | Hospitalist Progress Note ---
Assessment and Plan (1) Acute on chronic systolic (congestive) heart failure Status: Acute Assessment and plan: Ejection fraction 15%. Continue IV Lasix. Add Coreg. Current Visit: No (2) COPD (chronic obstructive pulmonary disease) Status: Acute Assessment and plan: Continue antibiotics and bronchodilators and convert IV Solu-Medrol to oral prednisone. Current Visit: Yes (3) Anxiety Status: Acute Assessment and plan: Continue home dose Xanax. Current Visit: Yes (4) Hypertension Status: Chronic Current Visit: No Qualifiers: Hypertension type: essential hypertension Qualified Code(s): I10 - Essential (primary) hypertension (5) Dyslipidemia Status: Chronic Current Visit: No (6) Hypokalemia Status: Acute Assessment and plan: Supplement with oral potassium replacement. Current Visit: Yes (7) Atrial fibrillation with rapid ventricular response Status: Resolved Current Visit: Yes (8) Chronic anticoagulation Status: Chronic Assessment and plan: Continue Coumadin. Recheck INR in a.m. Current Visit: Yes Hospitalist: Subjective Interval history: Patient seen and examined. No acute events overnight. Case discussed with nursing staff. Labs reviewed. Patient reports significant improvement in her symptoms overnight. She has had very good urine output. Her potassium was low this morning and oral supplements have been ordered. She remains confused and has significant short-term memory loss. Transfer to the floor today Exam - Constitutional Vitals: Period Temp Pulse Resp BP Sys/Reyes Pulse Ox Last 24 Hr 97.4 F-99.9 F 54-124 15-31 110-151/62-98 90-100 Exam: Constitutional System: Mild distress. No tremulousness. Head: Normocephalic, atraumatic. Ears, Nose and Throat System: No pain or tenderness. No epistaxis or discharge Eyes System: Pupils equal, round, and reactive. Extraocular muscles intact. Neck: Supple, without adenopathy, No jugular venous distention. No thyromegaly, neck mass, or prior surgery apparent. Respiratory System: Chest rales at the bases. Cardiovascular System: Heart with regular rate and rhythm. No murmur. GI System: Abdomen soft, nontender. Normo active bowel sounds present. Musculoskeletal System: limbs with no pedal edema. Full distal pulses. Neurological System: No discernable sensory deficit. No aphasia Psychiatric System: Conversation is rational Results - Labs CBC & BMP: 11/12/16 05:38 11/12/16 05:38 Lab Results: I have reviewed the past 24 hour labs - Diagnostic Findings Procedure: Chest x-ray: image reviewed by me, report reviewed by me
[2016-11-12] MEDS: CARVEDILOL 3.125 MG TABLET PO SCH ×2 (10:59→21:08)
[2016-11-12] MEDS: cefTRIAXone 1,000 MG in SODIUM CHLORIDE 0.9% 100 ML IV SCH (11:34)
[2016-11-12] MEDS: ENOXAPARIN 40 MG/0.4 ML SYRINGE SUBCUT SCH (11:41)
[2016-11-12] MEDS: AZITHROMYCIN INJ 500 MG in SODIUM CHLORIDE 0.9% 250 ML IV SCH (13:56)
[2016-11-12] MEDS: WARFARIN 2.5 MG TABLET PO SCH (17:16)
[2016-11-12] MEDS: ALUMINUM/MAGNES/SIMETH MAX STR 30 ML UDCUP PO PRN (17:24)
[2016-11-12] MEDS: MELATONIN 3 MG TABLET PO PRN (21:08)
[2016-11-12] MEDS: QUEtiapine 25 MG TABLET PO SCH (21:11)
[2016-11-12] MEDS: DONEPEZIL 5 MG TABLET PO SCH (21:11)
[2016-11-13 05:43] LABS: Osmolality,Calculated 295.3 MOS/KG (273-304); Potassium 4.1 MMOL/L (3.5-5.1)
[2016-11-13 06:53] LABS: PT Patient Result 68.3 SECS
[2016-11-13 06:56] LABS: INR 5.8
[2016-11-13 07:25] LABS: Hematocrit 27.1 VOL% (35.7-47.0); Hemoglobin 8.8 GM/DL (12.0-16.0); Immature Granulocytes % 0.4 %; Immature Granulocytes Absolute 0.04 #; Lymphocytes # 0.9 10*3/uL (1.4-4.0); Lymphocytes % 8.8 % (21.3-54.2); Mean Corpuscular HGB Conc 32.5 GM/DL (32-36); Mean Corpuscular Hemoglobin 28 PG (27-34); Mean Corpuscular Volume 85.2 FL (87-102); Mean Platelet Volume 12.5 FL (9.6-12.0); Monocytes # 0.5 10*3/uL (0.11-0.8); Monocytes % 5.1 % (1.7-12.7); Neutrophils # 8.7 10*3/uL (1.4-7.4); Neutrophils % 85.7 % (38.7-73.9); Platelet Count 96 T/CUMM (130-400); Red Blood Count 3.18 MC/CUMM (3.8-5.5); Red Cell Distribution Width 16.1 % (9.3-17.3); White Blood Count 10.2 T/CUMM (4-12)
[2016-11-13 07:57] LABS: Elliptocytes Few; Hypochromasia 1+; Platelet Estimate Decreased
[2016-11-13] MEDS: NICOTINE 21 MG/24 HR PATCH TRANSDERM PRN (09:33)
[2016-11-13] MEDS: predniSONE 20 MG TABLET PO SCH (09:34)
[2016-11-13] MEDS: ACETAMINOPHEN 500 MG TABLET PO SCH ×2 (09:34→21:19)
[2016-11-13] MEDS: ISOSORBIDE MONONITRATE 30 MG TABLET PO SCH (09:34)
[2016-11-13] MEDS: ASPIRIN CHEW 81 MG TABLET PO SCH (09:34)
[2016-11-13] MEDS: POTASSIUM CHLORIDE 20 MEQ TABLET PO SCH (09:34)
[2016-11-13] MEDS: metOLazone 5 MG TABLET PO SCH (09:34)
[2016-11-13] MEDS: MEGESTROL 400 MG/10 ML UDCUP PO SCH (09:34)
[2016-11-13] MEDS: CARVEDILOL 3.125 MG TABLET PO SCH (09:35)
[2016-11-13] MEDS: FUROSEMIDE 40 MG/4 ML VIAL IV SCH ×2 (09:35→16:25)
[2016-11-13] MEDS: ALPRAZolam 0.25 MG TABLET PO SCH ×3 (09:35→21:20)
[2016-11-13] MEDS: ATORVASTATIN 20 MG TABLET PO SCH (09:35)
[2016-11-13] MEDS: MULTIVITAMIN (CENTRUM) TABLET PO SCH (09:35)
[2016-11-13] MEDS: FLUTICASONE/SALMETEROL 250-50 DISKUS 14 DOSE INH SCH ×2 (09:35→21:20)
[2016-11-13] MEDS: ESCITALOPRAM 10 MG TABLET PO SCH (09:35)
[2016-11-13] MEDS: cefTRIAXone 1,000 MG in SODIUM CHLORIDE 0.9% 100 ML IV SCH (09:36)
--- NOTE | 2016-11-13 10:08 | Hospitalist Progress Note ---
Assessment and Plan - Time spent with patient Time spent with patient: Less than 30 minutes (1) Acute exacerbation of CHF (congestive heart failure) Status: Acute Assessment and plan: Patient has been transferred to the regular floor for continued treatment of heart failure exacerbation as well as exacerbation of COPD in addition to new onset A. fib with RVR. We will continue diuresis as blood pressure tolerates and will continue treatment of COPD with antibiotics nebs and oral steroids. Given that this is a new onset atrial fibrillation, will go ahead and consult with cardiology for further evaluation. Patient was previously on Coumadin for stroke secondary prevention, but it was noted that her INR was 5.8. Therefore anticoagulation has been held. The elevation in INR is likely related to concomitant administration of antibiotics with her Coumadin as her INR was within normal ranges on admission. There has been no evidence of bleeding and thus we will only hold anticoagulation for now. Will follow up with cardiology recommendations and proceed as clinical status warrants. Current Visit: Yes (2) COPD (chronic obstructive pulmonary disease) Status: Acute Assessment and plan: Continue antibiotics oral steroids and nebs. No evidence of wheezing on exam and O2 sats are adequate on room air. Chest x-ray noting progressive bibasilar atelectasis or pneumonia. Will order incentive spirometry. Current Visit: Yes (3) Hypokalemia Status: Resolved Current Visit: Yes (4) Chronic anticoagulation Status: Chronic Assessment and plan: INR elevated at 5.8, likely secondary to concomitant administration of antibiotics with Coumadin. We have held Coumadin and Lovenox. Will monitor daily INR values. No evidence of bleeding. H&H mildly decreased from admission. Will monitor. Current Visit: Yes (5) Atrial fibrillation with rapid ventricular response Status: Resolved Assessment and plan: New onset. Patient is currently anticoagulated and actually supratherapeutic therefore we are holding Coumadin. Rates have been controlled well on the floor. We will continue to monitor. 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 Follow-up cardiology consult. Current Visit: Yes (6) Acute CVA (cerebrovascular accident) Status: Chronic Current Visit: No Hospitalist: Subjective Interval history: Ms. Baez is a 75-year-old female with hypertension CVA, CHF with an EF of 15%, CAD, COPD, arthritis, and previous alcohol and tobacco use who presented on the with increased shortness of breath and objective as well as subjective data consistent with an acute exacerbation of CHF. She was also noted to have a new diagnosis of A. fib with RVR as well as a low-grade fever. She was initially admitted to the ICU for Cardizem infusion for rate control, lasix for diuresis, and antibiotics for treatment of bacterial pneumonia. All of her symptoms and signs were felt to be a result of an acute exacerbation of COPD for which she is being treated with oral steroids and inhalers. This morning she has some mild confusion but states that she feels that she is breathing much better. Exam - Constitutional Vitals: Period Temp Pulse Resp BP Sys/Reyes Pulse Ox Last 24 Hr 97.3 F-98.8 F 69-98 18-24 105-133/58-86 92-99 Exam: General: Awake and alert in no acute distress. Mild confusion noted. Eyes: Pupils equal, round, and reactive. EOMI Neck: Supple, without adenopathy, mild jugular venous distention. Respiratory System: Coarse but clear. Cardiovascular System: Heart with irregularly rhythm with normal rate. No murmur. GI System: Abdomen soft, mildly tender in left upper quadrant. NABS. Musculoskeletal System: limbs with no pedal edema. Full distal pulses. Neurological System: No discernable sensory deficit. No aphasia Results - Labs CBC & BMP: 11/13/16 04:08 11/13/16 04:11
--- NOTE | 2016-11-13 11:36 | Cardiology Consult Note ---
<Ida Kemp E - Last Filed: 11/13/16 12:17> Assessment and Plan - Time spent with patient Time spent with patient: Greater than 30 minutes (1) Acute exacerbation of CHF (congestive heart failure) Status: Acute Assessment and plan: SEE PLAN OF CARE LISTED BELOW Current Visit: Yes Qualifiers: Congestive heart failure type: combined Qualified Code(s): I50.43 - Acute on chronic combined systolic (congestive) and diastolic (congestive) heart failure (2) Anxiety Status: Chronic Assessment and plan: SEE PLAN OF CARE LISTED BELOW Current Visit: Yes (3) COPD (chronic obstructive pulmonary disease) Status: Chronic Assessment and plan: SEE PLAN OF CARE LISTED BELOW Current Visit: Yes (4) Chronic anticoagulation Status: Chronic Assessment and plan: SEE PLAN OF CARE LISTED BELOW Current Visit: Yes (5) Atrial fibrillation with rapid ventricular response Status: Acute Assessment and plan: SEE PLAN OF CARE LISTED BELOW Current Visit: Yes (6) Congestive heart failure Status: Acute Assessment and plan: SEE PLAN OF CARE LISTED BELOW Current Visit: No Qualifiers: Congestive heart failure type: combined Congestive heart failure chronicity : acute on chronic Qualified Code(s): I50.43 - Acute on chronic combined systolic (congestive) and diastolic (congestive) heart failure (7) Dyslipidemia Status: Chronic Assessment and plan: SEE PLAN OF CARE LISTED BELOW Current Visit: No (8) Hypertension Status: Chronic Assessment and plan: SEE PLAN OF CARE LISTED BELOW Current Visit: No Qualifiers: Hypertension type: essential hypertension Qualified Code(s): I10 - Essential (primary) hypertension (9) Non-ischemic cardiomyopathy Status: Chronic Assessment and plan: SEE PLAN OF CARE LISTED BELOW Current Visit: No (10) Tobacco abuse Status: Chronic Assessment and plan: SEE PLAN OF CARE LISTED BELOW Current Visit: No (11) Abnormal cardiac enzyme level Status: Chronic Assessment and plan: SEE PLAN OF CARE LISTED BELOW Current Visit: No History of Present Illness - Data of Consult Patient: known to practice within the last 3 years Consult date: 11/13/16 Requesting Physician: Soco Carballo - Consult Narrative Reason for consult: atrial firillation, new onset History of present illness: EDUCATION ADMINISTRATOR: DR. PERKINS Ms. Baez, 75WF, has risk factors significant for: age, hypertension, dyslipidemia, tobacco abuse, CVA, sedentary lifestyle. History of nonischemic cardiomyopathy, congestive heart failure, COPD, renal insufficiency, alcohol abuse, frequent falls. History of bleeding gastric ulcers September 2008 (Dr. Hinkle). Underwent cardiac catheterization September [address] Rivas, which revealed no obstructive coronary artery disease, EF < 20%. Patient is a poor historian with confusion and short-term memory loss. She does answer many questions quickly but I am uncertain if they are correct answers. Large portion of this information is taken from medical records and from healthcare providers. Patient admitted November 11, 2016 with shortness of breath, feeling of impending doom, left upper quadrant abdominal pain. She was found to be in atrial fibrillation with rapid ventricular response. This is believed to be new onset. She was found to be in congestive heart failure and possible community-acquired pneumonia. She was treated with IV diltiazem and the heart rate improved. She continues to be short of breath however she tells me this has improved. She denies chest pain, heaviness or tightness. She has chronically elevated troponins, remain flat during this admission. During the September 2016 hospitalization, patient was being considered for possible heart catheterization and ICD but developed an acute CVA. Neurology was consulted and warfarin was initiated. She was to follow-up when her comorbidities improved. She is chronically ill, poor historian and considered a high falls risk. INR this morning is 5.8. She has been taking antibiotics this may be etiology in the supratherapeutic levels. Coumadin currently on hold. Echocardiogram was repeated November 11, 2016 with the following noted: EF 10-15%, mild to moderate mitral regurgitation, PAP 64 mmHg. Patient is currently being treated for community-acquired pneumonia, acute on chronic congestive heart failure secondary to combined systolic and diastolic dysfunction, EF 10-15%, NYHA Class III. Atrial fibrillation is now rate controlled. INR is supra therapeutic and Coumadin being held. I will further discuss with Dr. Perkins and await additional recommendations. Increasing betablockade ASSESSMENT/PLAN: 1. SOB - multifactorial to include COPD, atrial fibrillation with rapid ventricular response, acute on chronic congestive heart failure and community- acquired pneumonia. Adjust medications for better control. 2. CARDIOMYOPATHY -originally thought to be non-ischemic cardiomyopathy as she has had a heart catheterization several years ago at that time there was no significant disease. Will level is nonischemic cardiomyopathy, EF 15%. Continue beta-blockade. Avoiding DAQUAN inhibitors for fear of worsening renal insufficiency, favor a rate controlling agents 3. ATRIAL FIBRILLATION, PAROXYSMAL -reviewing EKGs and telemetry strips. I do believe she may be having paroxysmal atrial fibrillation. There is numerous rhythm strips which are believed to be normal sinus rhythm with frequent PACs. Increase beta blockade. She is asymptomatic with her atrial fibrillation and medical management will ensue. 4. HIGH FALLS RISK - History of frequent falls. Protocol in place to prevent falls 5. HYPERTENSION - adequately controlled. Increasing beta-blockade today 6. DYSLIPIDEMIA - continue lipid-lowering agent. 7. CVA - right upper and lower extremity hemiparesis with CVA. 8. DEBILITATED - continue current plan of care 9. DEMENTED - continue current plan of care 10. CHRONICALLY ELEVATED TROPONIN -she has chronically elevated troponins that have been flat since August 2016. Continue medical management. This is not acute coronary syndrome. 11. CAP - on appropriate antibiotics, aggressive pulmonary toilet. 12. ACUTE ON CHRONIC CHF - secondary to systolic (EF 10%- 15%) and diastolic dysfunction, NYHA Class III. Continue with diuresing and medical management. CC: Kia Clayton MD - Home Medications and Allergies Home Medications: Home Medications Medication Instructions Recorded Confirmed Type Acetaminophen Tab [Tylenol Tab] 500 mg PO BID 09/08/16 11/11/16 History Aspirin 325 mg PO DAILY 09/08/16 11/11/16 History Atorvastatin [Lipitor] 20 mg PO DAILY 09/08/16 11/11/16 History Docusate Sodium Cap [Colace Cap] 100 mg PO BID PRN #0 capsule 09/14/16 11/11/16 Rx Nicotine 21 mg/24 Hr Patch 1 patch TRANSDERM DAILY PRN #0 09/14/16 11/11/16 Rx [Nicoderm CQ 21 mg/24 hr Patch] patch QUEtiapine [SEROquel] 12.5 mg PO BEDTIME #30 tablet 10/12/16 11/11/16 Rx ALPRAZolam [Xanax] 0.25 mg PO TID 10/18/16 11/11/16 History Escitalopram [Lexapro] 20 mg PO DAILY 10/18/16 11/11/16 History Furosemide Tab [Lasix Tab] 40 mg PO DAILY 10/18/16 11/11/16 History Isosorbide Mononitrate [Imdur] 15 mg PO 0900 10/18/16 11/11/16 History Potassium Chloride Cap/Tab [K Dur] 20 meq PO 0900 10/18/16 11/11/16 History Tramadol HCl [Tramadol Tab] 50 mg PO Q6H PRN 10/18/16 11/11/16 History Warfarin [Coumadin] 2.5 mg PO DAILY@1800 10/18/16 11/11/16 History Albuterol/Ipratropium Neb [Duoneb] 3 ml RESP TX TID PRN 11/11/16 11/11/16 History Alum/Mag/Simeth Liquid [Mylanta 30 ml PO Q4H PRN 11/11/16 11/11/16 History Liquid] Donepezil [Aricept] 5 mg PO BEDTIME 11/11/16 11/11/16 History Fluticasone/Salmeterol 250-50 1 puff INH BID 11/11/16 11/11/16 History [Advair 250-50] Megestrol Acetate [Megace] 400 mg PO DAILY 11/11/16 11/11/16 History Multivitamin [Multivitamins] 1 each PO DAILY 11/11/16 11/11/16 History guaiFENesin LIQUID [Robitussin] 10 ml PO Q4H PRN 11/11/16 11/11/16 History metOLazone [Metolazone] 10 mg PO DAILY 11/11/16 11/11/16 History Allergies/Adverse Reactions: Allergies Allergy/AdvReac Type Severity Reaction Status Date / Time Sulfa (Sulfonamide Allergy RASH Verified 10/18/16 19:09 Antibiotics) ROS unobtainable: due to mental status Medical,Surgical,& Family Hx - Medical History Cardio: History of: CHF, Hypertension, [place] Psychological: History of: Anxiety Disorders, Depression No history of: ADHD, Behavior Problems, Bipolar Disorder, Previous Suicide Attempt, Psychiatric/Substance Abuse Tx, Schizophrenia, Violent Behavior, Psychiatric Problems Neurology: History of: Cerebrovascular Accident (Right and Left Cerebellar acute infarction), TIA HEENT: History of: Eye Problem (Cataracts with removal.) Endocrine: History of: Dyslipidemia Respiratory: History of: COPD No history of: Obstructive Sleep Apnea Genitourinary: History of: Recurring Urinary Tract Infections Gastrointestinal: History of: GERD Musculoskeletal: No history of: Amputation - Surgical History Cardiac Surgeries: Sugical HX of: Cardiac Catheterization (2009) Patient Denies: Femoral-Popliteal Bypass Graft, Cardiac Surgery, Carotid Endarterectomy, Internal Defibrillator, Vascular Access Devices Thoracic Surgeries: Patient denies;: Kidney (Renal Surgery), Lithotripsy, Nephrectomy, Organ Transplant, Lobectomy Neurologic Surgeries: Patient denies: Neurologic Surgery HEENT Surgeries: Surgical HX of: Tonsilectomy & Adenoidectomy Patient denies: Carotid Endarterectomy Abdominal Surgeries: Patient denies: Abdominal Surgery, Splenectomy Reproductive Surgeries: Surgical HX of;: Gynecologic Surgery, Hysterectomy Patient denies;: Cystoscopy, Genitourinary Surgery - Family History Family History: Reports;: Family Heart Disease, Family Hypertension, Family Stroke - Social History Smoking Status: Former smoker Have you smoked in the last 12 months: No Frequency of Alcohol Use: None Type of Drug Use: None Marital Status: Functional capacity: wheelchair bound Physical Examination Vital Signs Temp Pulse Resp BP Pulse Ox 98.6 F 129 H 26 H 124/82 89 L 11/11/16 09:05 11/11/16 09:05 11/11/16 09:05 11/11/16 09:05 11/11/16 09:05 General: [Cachectic, pleasantly confused, cooperative ] HEENT: [PERRL, normocephalic, atraumatic. Dysarthria, Conjunctiva moist and clear, sclerae anicteric] Neck: No obvious JVD/HJR, no thyromegaly or lymphadenopathy noted. No carotid bruit appreciated Cardiac: [Irregularly irregular rhythm, controlled rate. [No obvious murmu, rub or gallop.] Lungs: [Inspiratory crackles in bases, improve with cough. ] Oxygen in use via nasal cannula Abdomen: Soft, bowel sounds normoactive. Nontender and nondistended. No abdominal bruit or thrill noted. No masses noted. Musculoskeletal: No fluid collection. Decreased range of motion is noted. Extremities: No clubbing, cyanosis noted. [ No edema noted.] Upper extremity pulses 2+. Lower extremity pulses 2+. Capillary refill less than 3 seconds. Skin: No unusual lesions or rashes. No skin breakdown appreciated. Neuro: Awake, alert and oriented person. Right upper and lower extremity hemiparesis. No essential tremor is appreciated. Result/EKG - Labs CBC & BMP: 11/13/16 04:08 11/13/16 04:11 Lab Results: I have reviewed the past 24 hour labs Labs: Laboratory Results - last 24 hr 11/13/16 11/13/16 11/13/16 04:08 04:11 06:20 WBC 10.2 D RBC 3.18 L Hgb 8.8 L Hct 27.1 L MCV 85.2 L MCH 28 MCHC 32.5 RDW 16.1 Plt Count 96 L D MPV 12.5 H Neut % (Auto) 85.7 H Lymph % (Auto) 8.8 L Haskell % (Auto) 5.1 Eos % (Auto) 0.0 Baso % (Auto) 0.0 Neut # (Auto) 8.7 H Lymph # (Auto) 0.9 L Haskell # (Auto) 0.5 Eos # (Auto) 0.0 Baso # (Auto) 0.0 Immature Gran % 0.4 Nucleated RBC % 0.0 Immature Gran # 0.04 Nucleated RBCs # 0.00 Platelet Estimate Decreased Hypochromasia 1+ Elliptocytes Few Morphology Comment INR 5.8 H* PT Patient/Control Mix 68.3 D Sodium 141 Potassium 4.1 Chloride 100 Carbon Dioxide 29 Anion Gap 16.1 H BUN 45 H D Creatinine 1.30 H GFR Calculation 40 BUN/Creatinine Ratio 34.00 H Glucose 159 H Calculated Osmolality 295.3 Calcium 9.0 - Diagnostic Findings Procedure: Chest x-ray: report reviewed by me - EKG EKG results: interpreted by mi EKG shows: sinus rhythm (PACs), atrial fibrillation <Curt Perkins - Last Filed: 11/13/16 12:36> History of Present Illness - Consult Narrative History of present illness: Ms. Baez is a 75 year old female CC: Kia Clayton MD Physical Examination Vital Signs Temp Pulse Resp BP Pulse Ox 98.6 F 129 H 26 H 124/82 89 L 11/11/16 09:05 11/11/16 09:05 11/11/16 09:05 11/11/16 09:05 11/11/16 09:05 Result/EKG - Labs CBC & BMP: 11/13/16 04:08 11/13/16 04:11 Labs: Laboratory Results - last 24 hr 11/13/16 11/13/16 11/13/16 04:08 04:11 06:20 WBC 10.2 D RBC 3.18 L Hgb 8.8 L Hct 27.1 L MCV 85.2 L MCH 28 MCHC 32.5 RDW 16.1 Plt Count 96 L D MPV 12.5 H Neut % (Auto) 85.7 H Lymph % (Auto) 8.8 L Haskell % (Auto) 5.1 Eos % (Auto) 0.0 Baso % (Auto) 0.0 Neut # (Auto) 8.7 H Lymph # (Auto) 0.9 L Haskell # (Auto) 0.5 Eos # (Auto) 0.0 Baso # (Auto) 0.0 Immature Gran % 0.4 Nucleated RBC % 0.0 Immature Gran # 0.04 Nucleated RBCs # 0.00 Platelet Estimate Decreased Hypochromasia 1+ Elliptocytes Few Morphology Comment INR 5.8 H* PT Patient/Control Mix 68.3 D Sodium 141 Potassium 4.1 Chloride 100 Carbon Dioxide 29 Anion Gap 16.1 H BUN 45 H D Creatinine 1.30 H GFR Calculation 40 BUN/Creatinine Ratio 34.00 H Glucose 159 H Calculated Osmolality 295.3 Calcium 9.0
[2016-11-13] MEDS: SPIRONOLACTONE 25 MG TABLET PO SCH (13:52)
[2016-11-13] MEDS: ASCORBIC ACID 500 MG TABLET PO SCH ×2 (13:52→21:20)
[2016-11-13] MEDS: DESITIN 4OZ/NYSTATIN 15 GRAM MIXTURE PASTE TOP SCH ×2 (13:54→21:20)
[2016-11-13] MEDS: CARVEDILOL 6.25 MG TABLET PO SCH (16:26)
[2016-11-13] MEDS: QUEtiapine 25 MG TABLET PO SCH (21:20)
[2016-11-13] MEDS: DONEPEZIL 5 MG TABLET PO SCH (21:20)
[2016-11-13] MEDS: ALUMINUM/MAGNES/SIMETH MAX STR 30 ML UDCUP PO PRN (21:21)
[2016-11-13] MEDS: AZITHROMYCIN INJ 500 MG in SODIUM CHLORIDE 0.9% 250 ML IV SCH (21:21)
[2016-11-14 06:06] LABS: Basophils % 0.1 % (0.0-0.8); Hematocrit 30.4 VOL% (35.7-47.0); Hemoglobin 9.6 GM/DL (12.0-16.0); Immature Granulocytes % 0.8 %; Immature Granulocytes Absolute 0.09 #; Lymphocytes # 1.1 10*3/uL (1.4-4.0); Lymphocytes % 9.5 % (21.3-54.2); Mean Corpuscular HGB Conc 31.6 GM/DL (32-36); Mean Corpuscular Hemoglobin 27 PG (27-34); Mean Corpuscular Volume 84.7 FL (87-102); Mean Platelet Volume 12.1 FL (9.6-12.0); Monocytes # 0.8 10*3/uL (0.11-0.8); Monocytes % 6.9 % (1.7-12.7); Neutrophils # 9.7 10*3/uL (1.4-7.4); Neutrophils % 82.7 % (38.7-73.9); Platelet Count 160 T/CUMM (130-400); Red Blood Count 3.59 MC/CUMM (3.8-5.5); White Blood Count 11.7 T/CUMM (4-12)
[2016-11-14 06:26] LABS: PT Patient Result 76.9 SECS
[2016-11-14 06:28] LABS: INR 6.4
[2016-11-14 06:45] LABS: Calcium 9.1 MG/DL (8.5-10.1); Magnesium 2.4 MG/DL (1.8-2.4); Osmolality,Calculated 298.1 MOS/KG (273-304); Potassium 3.1 MMOL/L (3.5-5.1)
--- NOTE | 2016-11-14 08:47 | Hospitalist Progress Note ---
Hospitalist: Subjective Interval history: Pt reports she has choking spells when she eats. No chest pain. She reports [place]. No nausea or vomiting. No fever. Exam - Constitutional Vitals: Period Temp Pulse Resp BP Sys/Reyes Pulse Ox Last 24 Hr 97 F-98.2 F 71-83 18-22 123-151/67-97 94-99 Exam: GEN: Frail elderly female sitting in the bed calling out for help HEENT: PERRL, EOMI, clear sclera CV: distant heart tones RRR LUNGS; Diminished, clear anteriorly, diminished at the bases ABD: Soft, NT, ND, +BS EXT: Warm no c/c/e superficial abrasion on lower tyler on right leg approximately 1 cm in diameter. No surrounding erythema. nontender to palpation Results - Labs CBC & BMP: 11/14/16 05:44 11/14/16 05:44 - Impressions (1) Acute exacerbation of systolic CHF (congestive heart failure) EF 15% Status: Acute Assessment and plan: - Pt appears better compensated. - On IV Lasix, Coreg, Aldactone. Will hold Lasix for now as creatinine has increased from 1.1 to 1.4. - May need to hold aldactone if creatinine continues to increase - Strict I and O's, daily weight - Serial labs to monitor creatinine, K, Mg, Phos - Check BNP - Cardiology following. F/U recs Current Visit: Yes (2) COPD (chronic obstructive pulmonary disease) with mild exacerbation +/- acute possible aspiration pneumonia Status: Acute Assessment and plan: - Continue IV antibiotics oral steroids and Bronchodilators/ inhalers. Add PEP/ IPPB therapy and Mucinex - Pt currently on 2L oxygen. Wean as tolerated. - Chest x-ray noting progressive bibasilar atelectasis or pneumonia. - Will ask speech therapy to evaluate for possible dysphagia/ aspiration and check MBS Current Visit: Yes (3) Hypokalemia Status: Acute Current Visit: Yes - replace. Check Mg and Phos and replace as needed (4) Chronic anticoagulation with supratherapeutic INR Status: Chronic Assessment and plan: - INR elevated at 6.4 up from 5.8 yesterday, likely secondary to concomitant administration of antibiotics with Coumadin. - Holding Coumadin and Lovenox and ASA. Give Vitamin K today - Will monitor daily INR values. - No evidence of bleeding. Monitor H&H. Current Visit: Yes (5) Atrial fibrillation with rapid ventricular response (new onset) likely due to acute respiratory process Status: Resolved Assessment and plan: - Holding Coumadin for now as INR supratherapeutic - Daily INR - cont rate control with Rates have been controlled well on the floor. We will continue to monitor. - Currently with edge trimmer in place. - Follow-up cardiology consult. Current Visit: Yes (6) Acute renal failure - hold lasix. May need to hold aldactone if creatinine continues to increase - recheck labs in am (7) History of CVA (cerebrovascular accident) with possible dysphagia Status: Chronic Current Visit: No - Check MBS, Speech consult (hopefully will eval sooner than later). D/W nurse. (7) Dementia with agitation at times - Cont Seroquel, Xanax, Celexa and Aricept. Hold if needed for sedation DVT/ GI prophylaxis- Holding Coumadin at this time as INR >6. Start Omeprazole while on steroids to prevent gastritis Dispo: Plans to dc to [facility] once medically stable. D/W nurse and pt and all questions answered.
[2016-11-14 09:16] LABS: Magnesium 2.3 MG/DL (1.8-2.4); Phosphorous 4.2 MG/DL (2.5-4.9)
[2016-11-14] MEDS ORDERED: PHYTONADIONE 10 MG/1 ML AMP IV ONE (09:30)
[2016-11-14] MEDS ORDERED: POTASSIUM CHLORIDE 20 MEQ TABLET PO ONE (09:30)
[2016-11-14] MEDS: ISOSORBIDE MONONITRATE 30 MG TABLET PO SCH (09:39)
[2016-11-14] MEDS: ASPIRIN CHEW 81 MG TABLET PO SCH (09:41)
[2016-11-14] MEDS: MULTIVITAMIN (CENTRUM) TABLET PO SCH (09:41)
[2016-11-14] MEDS: ALPRAZolam 0.25 MG TABLET PO SCH ×3 (09:42→21:00)
[2016-11-14] MEDS: ASCORBIC ACID 500 MG TABLET PO SCH ×2 (09:42→21:00)
[2016-11-14] MEDS: ACETAMINOPHEN 500 MG TABLET PO SCH ×2 (09:43→21:01)
[2016-11-14] MEDS: SPIRONOLACTONE 25 MG TABLET PO SCH (09:43)
[2016-11-14] MEDS: CARVEDILOL 6.25 MG TABLET PO SCH ×2 (09:43→17:38)
[2016-11-14] MEDS: DESITIN 4OZ/NYSTATIN 15 GRAM MIXTURE PASTE TOP SCH ×2 (09:45→21:01)
[2016-11-14] MEDS: ESCITALOPRAM 10 MG TABLET PO SCH (09:46)
[2016-11-14] MEDS: predniSONE 20 MG TABLET PO SCH (09:46)
[2016-11-14] MEDS: cefTRIAXone 1,000 MG in SODIUM CHLORIDE 0.9% 100 ML IV SCH (09:47)
[2016-11-14] MEDS: FLUTICASONE/SALMETEROL 250-50 DISKUS 14 DOSE INH SCH ×2 (09:48→21:01)
[2016-11-14] MEDS ORDERED: PHYTONADIONE 10 MG/1 ML AMP SUBCUT ONE (10:00)
[2016-11-14] MEDS: FUROSEMIDE 40 MG/4 ML VIAL IV SCH (10:07)
[2016-11-14] MEDS: PANTOPRAZOLE 20 MG TABLET PO SCH (11:23)
--- NOTE | 2016-11-14 16:32 | Cardiology Progress Note ---
I, Cony Arana RN, am scribing for, and in the presence of, Curt Perkins MD 16:32. Assessment and Plan - Time spent with patient Time spent with patient: Greater than 30 minutes (1) Atrial fibrillation with rapid ventricular response Status: Acute Assessment and plan: Pulse rates have been well controlled. Due to patient's recent history of acute stroke, she has been on chronic anticoagulation. We will manage her atrial fibrillation conservatively using rate control and anticoagulation as able. Cardiac monitoring shows patient is currently in sinus rhythm with PACs. Current Visit: Yes (2) Chronic anticoagulation Status: Chronic Assessment and plan: Coumadin is on hold. INR remains supratherapeutic and increased today to 6.4 today. Current Visit: Yes (3) Hypokalemia Status: Acute Assessment and plan: Potassium today is 3.1. Current Visit: Yes (4) Acute on chronic systolic (congestive) heart failure Status: Chronic Assessment and plan: Heart failure secondary to systolic and diastolic dysfunction. At this time, we will continue with diuresis and medical management of symptoms. I am going to cautiously increase her spironolactone dose and watch renal function and potassium closely. Current Visit: No (5) COPD (chronic obstructive pulmonary disease) Status: Chronic Assessment and plan: Currently on appropriate treatment. Current Visit: Yes (6) Abnormal cardiac enzyme level Status: Chronic Assessment and plan: Troponin levels are chronically elevated, and they have remained flat (0.284) this admission also. Current Visit: No (7) Dyslipidemia Status: Chronic Assessment and plan: Statin has been continued. Current Visit: No (8) Hypertension Status: Chronic Assessment and plan: Overall, blood pressure has been fairly well-controlled. Current Visit: No Qualifiers: Hypertension type: essential hypertension Qualified Code(s): I10 - Essential (primary) hypertension (9) Left bundle branch block Status: Chronic Assessment and plan: Chronic. Current Visit: No (10) Non-ischemic cardiomyopathy Status: Chronic Assessment and plan: Previous cardiac catheterization negative for coronary artery disease and longstanding cardiomyopathy with most recent echo showing LV ejection fraction 10-15%. Continue beta-declan. DAQUAN inhibitors and ARBs are avoided due to renal dysfunction. Current Visit: No (11) Tobacco abuse Status: Chronic Current Visit: No (12) Anxiety Status: Chronic Current Visit: Yes Cardiology - PN: Subj Interval history: [employer] DR[employer]: DR. PERKINS SUMMARY: Ms. Baez is a 75-year-old chronically ill white female with risk factors significant for: age, hypertension, hyperlipidemia, tobacco use, sedentary lifestyle. Past medical history includes nonischemic cardiomyopathy, CHF, COPD , renal insufficiency, alcohol abuse, and frequent falls. Other history includes bleeding gastric ulcers, she has undergone previous evaluation by Dr. Woodward in September 2008. Patient also had recent stroke during hospitalization in September 2016, and due to acute CVA, it was elected to postpone AICD implantation. Coumadin therapy for stroke prevention was initiated by neurology. Last cardiac catheterization was in September [address] Rivas, and there was no significant obstructive coronary artery disease or fixed lesion, ejection fraction at that time was less than 20%. Ms. Baez was admitted on November 11 with shortness of breath and a feeling of impending doom with left upper quadrant pain. EKG revealed atrial fibrillation with RVR, pulse rate 120. BNP 4731. Atrial fibrillation thought to be new onset. Pulse rates with IV Cardizem , and patient has since been transitioned to beta declan. Also being treated with antibiotics for possible community acquired pneumonia. Supratherapeutic INR since admission. Coumadin is on hold. Echocardiogram on November 11 with LV ejection fraction 10-15%, mild to moderate MR, PA pressure 64 mmHg. Patient also being treated for acute on chronic congestive heart failure seconday to combined systolic and diastolic dysfunction with severely reduced ejection fraction 10-15%, NYHA III. October UPDATE: Patient seen and examined. She is awake, alert, and in no acute respiratory distress eating breakfast with assistance from nursing staff. No chest pain. Denies shortness of breath. Diuresing well with IV Lasix. Creatinine with minor increase to 1.4 this morning. Hypokalemic with K+ 3.1. Magnesium 2.4. Cardiac monitoring reveals sinus rhythm with pulse rate 70s, PACs, a few brief paroxysms of atrial fib, and a brief episode of NSVT. Other labs reviewed. H&H 9.6/30.4. Supratherapeutic INR today increased to 6.4. Systolic BP 130-150 mmHg. Supplemental oxygen 2L/NC and oxygen saturations are improved to upper 90s today. Current Medications Acetaminophen (Tylenol Tab) 500 mg PO BID MOE Last Admin: 11/13/16 21:19 Dose: 500 mg Al Hydrox/Mg Hydrox/Simethicone (Mylanta Max Strength Liquid) 30 ml PO Q4H PRN PRN Reason: Gas Last Admin: 11/12/16 17:24 Dose: 30 ml Albuterol Sulfate (Proventil Neb) 2.5 mg RESP TX RT Q1H PRN PRN Reason: Shortness of Breath/Wheezing Albuterol/Ipratropium (Duoneb) 3 ml RESP TX RT Q6H PRN PRN Reason: SOB, wheezing Last Admin: 11/12/16 17:35 Dose: 3 ml Alprazolam (Xanax) 0.25 mg PO TID [facility] Last Admin: 11/13/16 21:20 Dose: 0.25 mg Ascorbic Acid (Vitamin C Tab) 1,000 mg PO BID [facility] Last Admin: 11/13/16 21:20 Dose: 1,000 mg Aspirin () 81 mg PO DAILY [facility] Last Admin: 11/13/16 09:34 Dose: 81 mg Aspirin () 325 mg PO DAILY [facility] Last Admin: 11/12/16 09:21 Dose: 325 mg Atorvastatin Calcium (Lipitor) 20 mg PO BEDTIME [facility] Carvedilol (Coreg) 6.25 mg PO BID W/MEALS [facility] Last Admin: 11/13/16 16:26 Dose: 6.25 mg Docusate Sodium (Colace Cap) 100 mg PO BID PRN PRN Reason: Constipation Donepezil HCl (Aricept) 5 mg PO BEDTIME [facility] Last Admin: 11/13/16 21:20 Dose: 5 mg Enoxaparin Sodium (Lovenox) 40 mg SUBCUT Q24H [facility] Last Admin: 11/12/16 11:41 Dose: 40 mg Escitalopram Oxalate (Lexapro) 20 mg PO DAILY [facility] Last Admin: 11/13/16 09:35 Dose: 20 mg Guaifenesin (Robitussin) 10 ml PO Q4H PRN PRN Reason: Cough Azithromycin 500 mg/ Sodium (Chloride) 250 mls @ 250 mls/hr IV Q24H [facility] Last Infusion: 11/13/16 22:56 Dose: Infused Magnesium Sulfate 2 gm/ Premix 50 mls @ 25 mls/hr IV .PER PROTOCOL PRN; Protocol PRN Reason: Per Protocol Ceftriaxone Sodium 1,000 mg/ (Sodium Chloride) 100 mls @ 200 mls/hr IV Q24H [facility] Last Infusion: 11/13/16 10:06 Dose: Infused Magnesium Sulfate 4 gm/ Premix 100 mls @ 25 mls/hr IV .PER PROTOCOL PRN; Protocol PRN Reason: Per Protocol Iron/Multivitamins/Folic Acid (Centrum Tab) 1 tablet PO DAILY [facility] Last Admin: 11/13/16 09:35 Dose: 1 tablet Isosorbide Mononitrate (Imdur) 15 mg PO 0900 [facility] Last Admin: 11/13/16 09:34 Dose: 15 mg Megestrol Acetate (Megace Liquid) 400 mg PO DAILY [facility] Last Admin: 11/13/16 09:34 Dose: 400 mg Melatonin () 3 mg PO BEDTIME PRN PRN Reason: Sleep Last Admin: 11/12/16 21:08 Dose: 3 mg Nicotine (Nicoderm Cq 21) 1 patch TRANSDERM DAILY PRN PRN Reason: Nicotine Cravings Last Admin: 11/13/16 09:33 Dose: 1 patch Nystatin/Zinc Oxide (Skin Protectant Mixture) 1 applic TOP BID [facility] Last Admin: 11/13/16 21:20 Dose: 1 applic Ondansetron HCl (Zofran Inj) 4 mg IV Q4H PRN PRN Reason: Nausea Prednisone () 40 mg PO DAILY [facility] Last Admin: 11/13/16 09:34 Dose: 40 mg Quetiapine Fumarate (Seroquel) 12.5 mg PO BEDTIME [facility] Last Admin: 11/13/16 21:20 Dose: 12.5 mg Fluticasone/Salmeterol (Advair 250-50) 1 puff INH BID [facility] Last Admin: 11/13/16 21:20 Dose: 1 puff Spironolactone (Aldactone) 25 mg PO DAILY [facility] Last Admin: 11/13/16 13:52 Dose: 25 mg Tramadol HCl (Ultram) 50 mg PO Q6H PRN PRN Reason: Pain Warfarin Sodium (Coumadin) 2.5 mg PO DAILY@1800 [facility] Last Admin: 11/12/16 17:16 Dose: 2.5 mg Exam (Progress Note) - Constitutional Vitals: Period Temp Pulse Resp BP Sys/Reyes Pulse Ox Last 24 Hr 97 F-98.2 F 71-83 18-22 123-151/67-97 94-99 Exam: General: Cachectic, pleasantly confused, cooperative. Appears chronically ill. HEENT: [PERRL, normocephalic, atraumatic. Dysarthria, Conjunctiva moist and clear, sclerae anicteric Neck: No obvious JVD/HJR, no thyromegaly or lymphadenopathy noted. No carotid bruit appreciated Cardiac: [Irregularly irregular rhythm, controlled rate. [No obvious murmu, rub or gallop.] Lungs: Inspiratory crackles in bases. Supplemental oxygen via nasal cannula. Abdomen: Soft, bowel sounds normoactive. Nontender and nondistended. No abdominal bruit or thrill noted. No masses noted. Musculoskeletal: No fluid collection. Decreased range of motion is noted. Extremities: No clubbing, cyanosis noted. [ No edema noted.] Upper extremity pulses 2+. Lower extremity pulses 2+. Capillary refill less than 3 seconds. Skin: No unusual lesions or rashes. Skin is warm and dry. No skin breakdown appreciated. Neuro: Awake, alert and oriented person. Right upper and lower extremity hemiparesis. No essential tremor is appreciated. Result/EKG - Labs CBC & BMP: 11/14/16 05:44 11/14/16 05:44 Lab Results: I have reviewed the past 24 hour labs Labs: Laboratory Results - last 24 hr 11/14/16 11/14/16 11/14/16 05:44 05:44 05:44 WBC 11.7 RBC 3.59 L Hgb 9.6 L Hct 30.4 L MCV 84.7 L MCH 27 MCHC 31.6 L RDW 16.0 Plt Count 160 D MPV 12.1 H Neut % (Auto) 82.7 H Lymph % (Auto) 9.5 L [place] % (Auto) 6.9 Eos % (Auto) 0.0 Baso % (Auto) 0.1 Neut # (Auto) 9.7 H Lymph # (Auto) 1.1 L [place] # (Auto) 0.8 Eos # (Auto) 0.0 Baso # (Auto) 0.0 Immature Gran % 0.8 Nucleated RBC % 0.0 Immature Gran # 0.09 Nucleated RBCs # 0.00 INR 6.4 H* PT Patient/Control Mix 76.9 Sodium 142 Potassium 3.1 L Chloride 98 Carbon Dioxide 33 H Anion Gap 14.1 BUN 53 H Creatinine 1.40 H GFR Calculation 36 BUN/Creatinine Ratio 37.00 H Glucose 135 H Calculated Osmolality 298.1 Calcium 9.1 Magnesium 2.4 - EKG EKG results: interpreted by me EKG shows: sinus rhythm ( PACs; paroxysms of atrial fib; brief NSVT) Gregorio Bal Michael, MD, personally performed the services described in this documentation, ascribed by Cony Arana RN in my presence, and it is both accurate and complete 632 .
[2016-11-14] MEDS: MELATONIN 3 MG TABLET PO PRN (21:00)
[2016-11-14] MEDS: ALUMINUM/MAGNES/SIMETH MAX STR 30 ML UDCUP PO PRN (21:00)
[2016-11-14] MEDS ORDERED: ATORVASTATIN 20 MG TABLET PO SCH (21:00)
[2016-11-14] MEDS: AZITHROMYCIN INJ 500 MG in SODIUM CHLORIDE 0.9% 250 ML IV SCH (21:00)
[2016-11-14] MEDS: QUEtiapine 25 MG TABLET PO SCH (21:01)
[2016-11-14] MEDS: DONEPEZIL 5 MG TABLET PO SCH (21:01)
[2016-11-15 06:02] LABS: Hematocrit 28.7 VOL% (35.7-47.0); Hemoglobin 9.1 GM/DL (12.0-16.0); Immature Granulocytes % 0.7 %; Immature Granulocytes Absolute 0.06 #; Lymphocytes # 1.1 10*3/uL (1.4-4.0); Mean Corpuscular HGB Conc 31.7 GM/DL (32-36); Mean Corpuscular Hemoglobin 27 PG (27-34); Mean Corpuscular Volume 85.2 FL (87-102); Monocytes # 0.6 10*3/uL (0.11-0.8); Monocytes % 7.4 % (1.7-12.7); Neutrophils # 6.6 10*3/uL (1.4-7.4); Neutrophils % 78.9 % (38.7-73.9); Platelet Count 127 T/CUMM (130-400); Red Blood Count 3.37 MC/CUMM (3.8-5.5); Red Cell Distribution Width 16.1 % (9.3-17.3); White Blood Count 8.4 T/CUMM (4-12)
[2016-11-15 06:23] LABS: PT Patient Result 58.9 SECS
[2016-11-15 06:33] LABS: Calcium 8.5 MG/DL (8.5-10.1); Magnesium 2.6 MG/DL (1.8-2.4); Osmolality,Calculated 301.1 MOS/KG (273-304); Potassium 3.8 MMOL/L (3.5-5.1)
[2016-11-15] MEDS: predniSONE 20 MG TABLET PO SCH (08:23)
[2016-11-15] MEDS: ASCORBIC ACID 500 MG TABLET PO SCH (08:24)
[2016-11-15] MEDS: ESCITALOPRAM 10 MG TABLET PO SCH (08:24)
[2016-11-15] MEDS: ACETAMINOPHEN 500 MG TABLET PO SCH (08:24)
[2016-11-15] MEDS: CARVEDILOL 6.25 MG TABLET PO SCH (08:24)
[2016-11-15] MEDS: ISOSORBIDE MONONITRATE 30 MG TABLET PO SCH (08:25)
[2016-11-15] MEDS: SPIRONOLACTONE 25 MG TABLET PO SCH (08:25)
[2016-11-15] MEDS: ALPRAZolam 0.25 MG TABLET PO SCH (08:25)
[2016-11-15] MEDS: PANTOPRAZOLE 20 MG TABLET PO SCH (08:25)
[2016-11-15] MEDS: ASPIRIN CHEW 81 MG TABLET PO SCH (08:25)
[2016-11-15] MEDS: MULTIVITAMIN (CENTRUM) TABLET PO SCH (08:25)
[2016-11-15] MEDS: NICOTINE 21 MG/24 HR PATCH TRANSDERM PRN (08:27)
[2016-11-15] MEDS: cefTRIAXone 1,000 MG in SODIUM CHLORIDE 0.9% 100 ML IV SCH (08:28)
[2016-11-15] MEDS: DESITIN 4OZ/NYSTATIN 15 GRAM MIXTURE PASTE TOP SCH (08:28)
[2016-11-15] MEDS: FLUTICASONE/SALMETEROL 250-50 DISKUS 14 DOSE INH SCH (08:28)
--- NOTE | 2016-11-15 08:39 | Physician Query Form ---
CLICK EDIT DOCUMENT TO SELECT QUERY ANSWER --> OK --> SIGN Theresa Beebe RN, CCDS Certified Clinical Casing Machine Operator W) [phone] (f) [phone] [email or web address]: Make your selection(s) from the choices in EACH section by typing an "x" and enter comments in the comment section. Please use your independent medical judgment in providing your response. This request does not imply that any particular answer is desired or expected. CLINICAL INDICATORS: (Providers should not edit this section) The medical record indicates that the patient was admitted with AF, Bacterial Pneumonia, SOB, on the : "has choking spells when she eats", "+/- acute possible aspiration pneumonia", per barium swallow "patient trace aspirated on 3 of 5 trials of thin liquid", "patient exhibited sensation to the aspiration by coughing" and recommendation "Pharyngeal exercise". Community Acquired and Healthcare Acquired are both unspecified terms and require further specificity. Based on the above, could you please clarify further specificity regarding the type of pneumonia you are treating (even if specific organism may not be known) ? (x ) Aspiration pneumonia ( ) Gram negative pneumonia ( ) Gram positive pneumonia ( ) Bacterial pneumonia due to, please specify organism (if known): ( ) Pneumonia with Influenza ( ) Viral pneumonia ( ) Post procedural ( ) HIV associated pneumonia ( ) Radiation Pneumonitis ( ) Pneumonia due to, please specify: ( ) Clinically unable to determine ( ) Other, please specify: COMMENTS: PLEASE ALSO DOCUMENT RESPONSE IN PROGRESS NOTES AND/OR DISCHARGE SUMMARY Use of terms such as suspected, likely, or probable (associated with a specific diagnosis that is being evaluated, monitored, or treated as if it exists) are acceptable and can be restated in the discharge summary if not ruled out. MTDD
--- NOTE | 2016-11-15 10:08 | Discharge Summary ---
<Florencio Watson - Last Filed: 11/15/16 09:23> Hospital Course - Hospital Course Hospital Course: This is a 75-year-old female patient with a history of hypertension, CVA, CHF, [place], COPD, arthritis, previous tobacco and alcohol abuse. She presented to the ED on 11/11 with a 1 day history of increasing shortness of breath. Patient also complains of some upper quadrant abdominal pain. Patient is a resident at the [facility]. She reported that while at the half-way she became short of breath and that it progressively worsened. On arrival to ED patient was found to be tachypneic, febrile, and A. fib with RVR with rates in the 120s. Cardizem infusion was initiated. Patient also was found to have a mildly elevated white count of 12.6, chronically elevated troponin (0.259), B and P 4731, D dimer 1.2, chest x-ray which revealed mild CHF decompensation. The patient was admitted to the intensive care unit for further evaluation and treatment of her acute on chronic congestive heart failure, shortness of breath, and A. fib with RVR. Patient was continued on the IV Cardizem infusion, diuresed and given antibiotics, bronchodilators, and IV Solu-Medrol. On 11/12 the patient was able to be transferred to the floor after significant improvement in her prior symptoms. Cardiology was consulted to evaluate the patient. The recommendation was to continue diuresis, increase beta blockade to help with her paroxysmal atrial fibrillation. Cardizem drip was stopped. IV solumedrol was changed to oral prednisone with a taper. Patient had been anticoagulated with Coumadin due to history of atrial fibrillation. Coumadin was being held due to supratherapeutic INR of greater than 6. (Today the INR is 5 s/p Vitamin K). Will continue to hold until INR < 3 (Ideally 2-2.5) . I recommend INR in 2 days 11/17 and will defer further management to half-way medical pathology teacher. Patient's atrial fibrillation became rate controlled and patient is now in sinus rhythm with PACs. Patient's shortness of breath has resolved. Patient did undergo a modified barium swallow study which revealed trace aspiration on thin liquids. Recommendation of soft diet with nectar thick liquids. Today, patient's labs and vital signs are stable. She is able to return to the [facility]. Specialty Discharge - Follow Up or Referrals Follow up with: Curt Perkins MD [Physician] - 2 Weeks (CHF, afib management) Discharge Plan - Discharge Data Disposition: Disch/Xfer to Snf - Discharge Medications New Albuterol/Ipratropium Neb [Duoneb] 3 ml RESP TX RT Q6H PRN PRN Reason: SOB, wheezing Aspirin Chew Tab 81 mg PO DAILY tablet Carvedilol [Coreg] 6.25 mg PO BID W/MEALS tablet guaiFENesin ER TAB [Mucinex] 600 mg PO BID tablet Melatonin 3 mg PO BEDTIME PRN tablet PRN Reason: Sleep Pantoprazole Tab [Protonix Tab] 20 mg PO DAILY tablet Spironolactone [Aldactone] 25 mg PO DAILY tablet predniSONE TAB [PredniSONE] 40 mg PO DAILY #9 tablet Albuterol Neb [Proventil Neb] 2.5 mg RESP TX RT Q1H PRN PRN Reason: Shortness Of Breath/Wheezing Ascorbic Acid Tab [Vitamin C Tab] 1,000 mg PO BID tablet guaiFENesin LIQUID [Robitussin] 10 ml PO Q4H PRN PRN Reason: Cough Continue Atorvastatin [Lipitor] 20 mg PO DAILY Acetaminophen Tab [Tylenol Tab] 500 mg PO BID Docusate Sodium Cap [Colace Cap] 100 mg PO BID PRN #0 capsule PRN Reason: Constipation Escitalopram [Lexapro] 20 mg PO DAILY Potassium Chloride Cap/Tab [K Dur] 20 meq PO 0900 Isosorbide Mononitrate [Imdur] 15 mg PO 0900 Fluticasone/Salmeterol 250-50 [Advair 250-50] 1 puff INH BID Alum/Mag/Simeth Liquid [Mylanta Liquid] 30 ml PO Q4H PRN PRN Reason: Gas Megestrol Acetate [Megace] 400 mg PO DAILY guaiFENesin LIQUID [Robitussin] 10 ml PO Q4H PRN PRN Reason: Cough Multivitamin [Multivitamins] 1 each PO DAILY Donepezil [Aricept] 5 mg PO BEDTIME ALPRAZolam [Xanax] 0.25 mg PO TID #3 Tramadol HCl [Tramadol Tab] 50 mg PO Q6H PRN #3 PRN Reason: Pain Furosemide Tab [Lasix Tab] 40 mg PO DAILY Nicotine 21 mg/24 Hr Patch [Nicoderm CQ 21 mg/24 hr Patch] 1 patch TRANSDERM DAILY PRN #0 patch PRN Reason: Nicotine Cravings QUEtiapine [SEROquel] 12.5 mg PO BEDTIME #30 tablet Discontinued Aspirin 325 mg PO DAILY metOLazone [Metolazone] 10 mg PO DAILY Warfarin [Coumadin] 2.5 mg PO DAILY@1800 No Action Albuterol/Ipratropium Neb [Duoneb] 3 ml RESP TX TID PRN PRN Reason: Shortness Of Breath - Follow Up or Referral Follow Up: Curt Perkins MD [Physician] - 2 Weeks (CHF, afib management) - Forms/Instructions Exam - Constitutional Vitals: Period Temp Pulse Resp BP Sys/Reyes Pulse Ox Last 24 Hr 96.1 F-98.2 F 72-97 16-22 125-134/64-82 93-98 Discharge Results Procedures and tests throughout hospitalization: Pending Orders 11/16/16 04:00 CBC [Comp Blood Count Auto Diff] IN AM Prothrombin Time INR IN AM 11/17/16 04:00 CBC [Comp Blood Count Auto Diff] IN AM Prothrombin Time INR IN AM Labs on day of discharge: Labs from last 24 hours 11/15/16 11/15/16 11/15/16 05:01 05:01 05:01 WBC 8.4 RBC 3.37 L Hgb 9.1 L Hct 28.7 L MCV 85.2 L MCH 27 MCHC 31.7 L RDW 16.1 Plt Count 127 L D MPV 12.0 Neut % (Auto) 78.9 H Lymph % (Auto) 13.0 L [place] % (Auto) 7.4 Eos % (Auto) 0.0 Baso % (Auto) 0.0 Neut # (Auto) 6.6 Lymph # (Auto) 1.1 L [place] # (Auto) 0.6 Eos # (Auto) 0.0 Baso # (Auto) 0.0 Immature Gran % 0.7 Nucleated RBC % 0.0 Immature Gran # 0.06 Nucleated RBCs # 0.00 INR 5.0 PT Patient/Control Mix 58.9 D Sodium 142 Potassium 3.8 Chloride 100 Carbon Dioxide 36 H Anion Gap 9.8 BUN 50 H Creatinine 1.30 H GFR Calculation 40 BUN/Creatinine Ratio 38.00 H Glucose 212 H Calculated Osmolality 301.1 Calcium 8.5 Magnesium 2.6 H DS: Provider Date of admission: 11/11/16 12:20 Primary care physician: . No PCP Attending physician on admission: Soco Carballo MD Consults: 11/13/16 09:56 Consult to Physician [CONS] Routine Comment: New onset Atrial Fibrillation CHF (EF15%) Consulting Provider: Curt Perkins Person Notified: STEPHANIE Date Notified: 11/13/16 Time Notified: 10:11/14/16 08:41 Consult to Occupational Therapy [CONS] Routine Reason for Occupational Therapy: Evaluate and Treat Consult to Physical Therapy [CONS] Routine Reason for Physical Therapy: Evaluate and Treat Discharging clinician: Florencio Watson NP <Jane Stephens - Last Filed: 11/15/16 11:30> Hospital Course - Time spent with patient Time with patient DS: Greater than 30 minutes (35 minutes) Diagnosis - Discharge Diagnosis (1) Atrial fibrillation with rapid ventricular response Status: Resolved (2) Anxiety Status: Chronic (3) COPD (chronic obstructive pulmonary disease) Status: Chronic (4) Acute on chronic systolic (congestive) heart failure Status: Resolved (5) Dyslipidemia Status: Chronic (6) Hypertension Status: Chronic (7) Tobacco abuse Status: Chronic Discharge Plan - Discharge Data Condition at Discharge: Stable Discharge Diet: heart healthy, other (soft diet with nectar thick liquids) Activity: as per physical therapy Contact your physician if you experience:: fever over 101, Difficulty voiding, Redness or swelling, Nausea/Vomiting, Shortness of breath, Bleeding, pain uncontrolled by pain medications - Forms/Instructions Additional Discharge Instructions: INR 6/23. If INR less than 2.5, restart Coumadin 2.5mg po daily. Weigh daily. If weight increases or decreases by more than 3 lbs, notify MD. check RFP in 1 week Exam - Constitutional Exam: GEN: Frail elderly female sitting in the bed eating breakfast HEENT: PERRL, EOMI, clear sclera CV: distant heart tones RRR LUNGS; Diminished, clear anteriorly, good aeration. No rales at the bases. ABD: Soft, NT, ND, +BS EXT: Warm no c/c/e superficial abrasion on lower tyler on right leg approximately 1 cm in diameter. No surrounding erythema. nontender to palpation
--- NOTE | 2016-11-15 11:14 | Cardiology Progress Note ---
Sumit Bal Vanessa, RN, am scribing for, and in the presence of, Curt Perkins MD 11:14. Assessment and Plan - Time spent with patient Time spent with patient: Greater than 30 minutes (1) Atrial fibrillation with rapid ventricular response Status: Resolved Assessment and plan: Pulse rates have been well controlled. Due to patient's recent history of acute stroke, she has been on chronic anticoagulation. We will manage her atrial fibrillation conservatively using rate control and anticoagulation as able. Cardiac monitoring shows patient is currently in sinus rhythm with PACs. Current Visit: Yes (2) Chronic anticoagulation Status: Chronic Assessment and plan: Coumadin is on hold. INR remains supratherapeutic and increased today to 6.4 today. Current Visit: Yes (3) Hypokalemia Status: Acute Assessment and plan: Potassium today is 3.1. Current Visit: Yes (4) Acute on chronic systolic (congestive) heart failure Status: Resolved Assessment and plan: Heart failure secondary to systolic and diastolic dysfunction. At this time, we will continue with diuresis and medical management of symptoms. Current Visit: No (5) COPD (chronic obstructive pulmonary disease) Status: Chronic Assessment and plan: Currently on appropriate treatment. Current Visit: Yes (6) Abnormal cardiac enzyme level Status: Chronic Assessment and plan: Troponin levels are chronically elevated, and they have remained flat (0.284) this admission also. Current Visit: No (7) Dyslipidemia Status: Chronic Assessment and plan: Statin has been continued. Current Visit: No (8) Hypertension Status: Chronic Assessment and plan: Overall, blood pressure has been fairly well-controlled. Current Visit: No Qualifiers: Qualified Code(s): I10 - Essential (primary) hypertension (9) Left bundle branch block Status: Chronic Assessment and plan: Chronic. Current Visit: No (10) Non-ischemic cardiomyopathy Status: Chronic Assessment and plan: Previous cardiac catheterization negative for coronary artery disease and most recent echocardiogram revealed LV ejection fraction 10-15%. Continue beta- declan. DAQUAN inhibitors and ARBs are avoided due to renal dysfunction. 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 PERKINS SUMMARY: Ms. Baez is a 75-year-old chronically ill white female with risk factors significant for: age, hypertension, hyperlipidemia, tobacco use, sedentary lifestyle. Past medical history includes nonischemic cardiomyopathy, CHF, COPD , renal insufficiency, alcohol abuse, and frequent falls. Other history includes bleeding gastric ulcers, she has undergone previous evaluation by Dr. Woodward in September 2008. Patient also had recent stroke during hospitalization in September 2016, and due to acute CVA, it was elected to postpone AICD implantation. Coumadin therapy for stroke prevention was initiated by neurology. Last cardiac catheterization was in September [address] Rivas, and there was no significant obstructive coronary artery disease or fixed lesion, ejection fraction at that time was less than 20%. Ms. Baez was admitted on November 11 with shortness of breath and a feeling of impending doom with left upper quadrant pain. EKG revealed atrial fibrillation with RVR, pulse rate 120. BNP 4731. Atrial fibrillation thought to be new onset. Pulse rates with IV Cardizem , and patient has since been transitioned to beta declan. Also being treated with antibiotics for possible community acquired pneumonia. Supratherapeutic INR since admission. Coumadin is on hold. Echocardiogram on November 11 with LV ejection fraction 10-15%, mild to moderate MR, PA pressure 64 mmHg. Patient also being treated for acute on chronic congestive heart failure seconday to combined systolic and diastolic dysfunction with severely reduced ejection fraction 10-15%, NYHA III. October UPDATE: Ms. Baez Current Medications Acetaminophen (Tylenol Tab) 500 mg PO BID [facility] [place] Last Admin: 11/15/16 08:24 Dose: 500 mg Al Hydrox/Mg Hydrox/Simethicone (Mylanta Max Strength Liquid) 30 ml PO Q4H PRN PRN Reason: Gas Last Admin: 11/14/16 21:00 Dose: 30 ml Albuterol Sulfate (Proventil Neb) 2.5 mg RESP TX RT Q1H PRN PRN Reason: Shortness of Breath/Wheezing Albuterol/Ipratropium (Duoneb) 3 ml RESP TX RT Q6H PRN PRN Reason: SOB, wheezing Last Admin: 11/12/16 17:35 Dose: 3 ml Alprazolam (Xanax) 0.25 mg PO TID [facility] [place] Last Admin: 11/15/16 08:25 Dose: 0.25 mg Ascorbic Acid (Vitamin C Tab) 1,000 mg PO BID [facility] [place] Last Admin: 11/15/16 08:24 Dose: 1,000 mg Aspirin () 81 mg PO DAILY [facility] [place] Last Admin: 11/15/16 08:25 Dose: 81 mg Aspirin () 325 mg PO DAILY [facility] [place] Last Admin: 11/12/16 09:21 Dose: 325 mg Atorvastatin Calcium (Lipitor) 20 mg PO BEDTIME [facility] [place] Last Admin: 11/14/16 21:01 Dose: 20 mg Carvedilol (Coreg) 6.25 mg PO BID W/MEALS [facility] [place] Last Admin: 11/15/16 08:24 Dose: 6.25 mg Docusate Sodium (Colace Cap) 100 mg PO BID PRN PRN Reason: Constipation Donepezil HCl (Aricept) 5 mg PO BEDTIME [facility] [place] Last Admin: 11/14/16 21:01 Dose: 5 mg Enoxaparin Sodium (Lovenox) 40 mg SUBCUT Q24H [facility] [place] Last Admin: 11/12/16 11:41 Dose: 40 mg Escitalopram Oxalate (Lexapro) 20 mg PO DAILY [facility] [place] Last Admin: 11/15/16 08:24 Dose: 20 mg Guaifenesin (Robitussin) 10 ml PO Q4H PRN PRN Reason: Cough Guaifenesin (Mucinex) 600 mg PO BID [facility] [place] Last Admin: 11/15/16 08:25 Dose: 600 mg Azithromycin 500 mg/ Sodium (Chloride) 250 mls @ 250 mls/hr IV Q24H [facility] [place] Last Admin: 11/14/16 21:00 Dose: 215 mls/hr Magnesium Sulfate 2 gm/ Premix 50 mls @ 25 mls/hr IV .PER PROTOCOL PRN; Protocol PRN Reason: Per Protocol Ceftriaxone Sodium 1,000 mg/ (Sodium Chloride) 100 mls @ 200 mls/hr IV Q24H [facility] [place] Last Admin: 11/15/16 08:28 Dose: 100 mls/hr Magnesium Sulfate 4 gm/ Premix 100 mls @ 25 mls/hr IV .PER PROTOCOL PRN; Protocol PRN Reason: Per Protocol Iron/Multivitamins/Folic Acid (Centrum Tab) 1 tablet PO DAILY [facility] [place] Last Admin: 11/15/16 08:25 Dose: 1 tablet Isosorbide Mononitrate (Imdur) 15 mg PO 0900 [facility] [place] Last Admin: 11/15/16 08:25 Dose: 15 mg Megestrol Acetate (Megace Liquid) 400 mg PO DAILY [facility] [place] Last Admin: 11/13/16 09:34 Dose: 400 mg Melatonin () 3 mg PO BEDTIME PRN PRN Reason: Sleep Last Admin: 11/14/16 21:00 Dose: 3 mg Nicotine (Nicoderm Cq 21) 1 patch TRANSDERM DAILY PRN PRN Reason: Nicotine Cravings Last Admin: 11/15/16 08:27 Dose: 1 patch Nystatin/Zinc Oxide (Skin Protectant Mixture) 1 applic TOP BID [facility] [place] Last Admin: 11/15/16 08:28 Dose: 1 applic Ondansetron HCl (Zofran Inj) 4 mg IV Q4H PRN PRN Reason: Nausea Pantoprazole Sodium (Protonix Tab) 20 mg PO DAILY [facility] [place] Last Admin: 11/15/16 08:25 Dose: 20 mg Prednisone () 40 mg PO DAILY [facility] [place] Last Admin: 11/15/16 08:23 Dose: 40 mg Quetiapine Fumarate (Seroquel) 12.5 mg PO BEDTIME [facility] [place] Last Admin: 11/14/16 21:01 Dose: 12.5 mg Fluticasone/Salmeterol (Advair 250-50) 1 puff INH BID [facility] [place] Last Admin: 11/15/16 08:28 Dose: 1 puff Spironolactone (Aldactone) 25 mg PO DAILY [facility] [place] Last Admin: 11/15/16 08:25 Dose: 25 mg Tramadol HCl (Ultram) 50 mg PO Q6H PRN PRN Reason: Pain Warfarin Sodium (Coumadin) 2.5 mg PO DAILY@1800 [facility] [place] Last Admin: 11/12/16 17:16 Dose: 2.5 mg Exam (Progress Note) - Constitutional Vitals: Period Temp Pulse Resp BP Sys/Reyes Pulse Ox Last 24 Hr 96.1 F-98.2 F 72-97 16-22 125-134/64-82 93-98 Exam: General: Cachectic, pleasantly confused, cooperative. Appears chronically ill. HEENT: [PERRL, normocephalic, atraumatic. Dysarthria, Conjunctiva moist and clear, sclerae anicteric Neck: No obvious JVD/HJR, no thyromegaly or lymphadenopathy noted. No carotid bruit appreciated Cardiac: [Irregularly irregular rhythm, controlled rate. [No obvious murmu, rub or gallop.] Lungs: Inspiratory crackles in bases. Supplemental oxygen via nasal cannula. Abdomen: Soft, bowel sounds normoactive. Nontender and nondistended. No abdominal bruit or thrill noted. No masses noted. Musculoskeletal: No fluid collection. Decreased range of motion is noted. Extremities: No clubbing, cyanosis noted. [ No edema noted.] Upper extremity pulses 2+. Lower extremity pulses 2+. Capillary refill less than 3 seconds. Skin: No unusual lesions or rashes. Skin is warm and dry. No skin breakdown appreciated. Neuro: Awake, alert and oriented person. Right upper and lower extremity hemiparesis. No essential tremor is appreciated. Result/EKG - Labs CBC & BMP: 11/15/16 05:01 11/15/16 05:01 Lab Results: I have reviewed the past 24 hour labs Labs: Laboratory Results - last 24 hr 11/14/16 11/15/16 11/15/16 Unknown 05:01 05:01 WBC 8.4 RBC 3.37 L Hgb 9.1 L Hct 28.7 L MCV 85.2 L MCH 27 MCHC 31.7 L RDW 16.1 Plt Count 127 L D MPV 12.0 Neut % (Auto) 78.9 H Lymph % (Auto) 13.0 L Crosby % (Auto) 7.4 Eos % (Auto) 0.0 Baso % (Auto) 0.0 Neut # (Auto) 6.6 Lymph # (Auto) 1.1 L Crosby # (Auto) 0.6 Eos # (Auto) 0.0 Baso # (Auto) 0.0 Immature Gran % 0.7 Nucleated RBC % 0.0 Immature Gran # 0.06 Nucleated RBCs # 0.00 INR PT Patient/Control Mix Sodium 142 Potassium 3.8 Chloride 100 Carbon Dioxide 36 H Anion Gap 9.8 BUN 50 H Creatinine 1.30 H GFR Calculation 40 BUN/Creatinine Ratio 38.00 H Glucose 212 H Calculated Osmolality 301.1 Calcium 8.5 Magnesium 2.6 H B-Natriuretic Peptide 4960 H 11/15/16 05:01 WBC RBC Hgb Hct MCV MCH MCHC RDW Plt Count MPV Neut % (Auto) Lymph % (Auto) Crosby % (Auto) Eos % (Auto) Baso % (Auto) Neut # (Auto) Lymph # (Auto) Crosby # (Auto) Eos # (Auto) Baso # (Auto) Immature Gran % Nucleated RBC % Immature Gran # Nucleated RBCs # INR 5.0 PT Patient/Control Mix 58.9 D Sodium Potassium Chloride Carbon Dioxide Anion Gap BUN Creatinine GFR Calculation BUN/Creatinine Ratio Glucose Calculated Osmolality Calcium Magnesium B-Natriuretic Peptide - EKG EKG results: interpreted by me I, Curt Perkins MD, personally performed the services described in this documentation, ascribed by Cony Arana RN in my presence, and it is both accurate and complete .
[2016-11-15 11:24] VITALS: BP 117/74
== END 2016-11-15 13:35 | DRG 177 ==
LOC: EDUNIT# → N.ED 08:53 → SUATTDRO 12:20 → N.EDINP 12:20 → N.ICU 13:09 → N.2E 11-12 10:38
PROVIDERS: ADMIT Family Medicine; ATTEND Pediatrics